=== PATIENT | male | born 1970 | race Caucasian/White ===

== ENCOUNTER 2018-04-27 15:50 | Inpatient (IN) | payer OTHER ==
[2018-04-27] MEDS ORDERED: HYDROmorphone 1 MG/ML Syringe ONE ×3 (16:17→17:57)
[2018-04-27] MEDS ORDERED: fentaNYL 100 MCG/2 ML SDV ONE (16:22)
[2018-04-27] MEDS ORDERED: Sodium Chloride 0.9% 10 ML Syringe FLUSH PRN (16:59)
[2018-04-27] MEDS ORDERED: Lactated Ringers 1,000 ML IV SCH (17:00)
--- NOTE | 2018-04-27 17:31 | CT ---
CT cervical spine Technique: Multiple axial sections were obtained from above C1 to the bottom of T2. Reconstructed sagittal and coronal images were reviewed. Comparison: No prior cervical spine imaging. Findings: Vertebral body heights are maintained. Mild disc space narrowing is noted at C2-3, C3-4, C4-5 and C5-6. Mild degenerative change is noted within the lower apophyseal joints. Vertebral bodies and posterior arches are intact with no fracture being seen. No bony central or neural foraminal stenosis is seen. Mild scoliosis is seen. No abnormal subluxation is seen. Slight degenerative spurring is noted within the uncovertebral joints at C3-4, C4-5 and C5-6. Impression: 1. Scoliosis and mild degenerative change. 2. Nothing acute is appreciated on CT study of the cervical spine. Diagnostic code #2
[2018-04-27] MEDS ORDERED: Iopamidol 612 MG/ML 100 ML Bottle IVPUSH ONE (17:32)
--- NOTE | 2018-04-27 17:35 | CT ---
Head CT Technique: Multiple axial sections through the brain were obtained. Intravenous contrast was not utilized. Comparison: No prior intracranial imaging is available. Findings: Ventricles along with basal cisterns and sulci over the convexities are within normal limits for the patient's age. No abnormal parenchymal densities are seen. No evidence of intracranial hemorrhage. No midline shift or mass effect is seen. Bone window settings were reviewed which shows moderate mucosal thickening within the ethmoid sinuses and mild mucosal thickening within the frontal sinuses and minimal mucosal thickening within left sphenoid sinus. Findings are felt compatible with pre-existing mild chronic sinusitis. No acute calvarial abnormality is seen. Impression: 1. Sinus findings as described above. These are most likely pre-existing and due to mild chronic sinusitis. 2. No acute intracranial abnormality is identified. Diagnostic code #2
--- NOTE | 2018-04-27 17:42 | CT ---
CT chest Technique: Multiple axial sections were obtained from above the lung apices inferiorly through the lung bases. Intravenous contrast was utilized. Comparison: No prior chest CT, previous chest x-ray performed on the same day (4:16 PM). Findings: Mediastinal structures appear within normal limits. No adenopathy is seen. No pericardial fluid is seen. Lungs are clear. No acute parenchymal densities are seen. No pleural effusions or pneumothorax is seen. Bone window settings were reviewed which shows no acute rib fracture. Vertebral body heights are maintained. Sternum appears intact on the reconstructed sagittal images. Impression: 1. Nothing acute is seen on CT study of the chest. Diagnostic code #1 CT abdomen and pelvis Technique: Multiple axial sections were obtained from above the dome of the diaphragm inferiorly through the pubic symphysis. Intravenous contrast was utilized. No oral contrast has been given. Comparison: No prior abdominal imaging. Findings: Fatty infiltration is noted within the liver. Spleen appears within normal limits. Adrenal glands are normal. Pancreas appears within normal limits. Gallbladder contains no calcified gallstones. Kidneys show symmetric contrast enhancement and appear within normal limits. Aorta shows no aneurysm. No retroperitoneal adenopathy or mesenteric abnormalities are seen. No pelvic mass or adenopathy is identified. Appendix not visualized with certainty. No free fluid or inflammatory change is seen. Bone window settings were reviewed which shows slight degenerative change within the lower lumbar apophyseal joints. No vertebral body compression deformities are seen. Incidental small fat-containing umbilical hernia is seen. Impression: 1. Fatty infiltration within the liver and other incidental findings. Nothing acute is appreciated on CT study of the abdomen and pelvis. Diagnostic code #2
[2018-04-27] MEDS ORDERED: HYDROmorphone 1 MG/ML Syringe IVPUSH ONE (17:56)
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
[2018-04-27] MEDS ORDERED: LORazepam 2 MG/ML SDV IVPUSH ONE (18:35)
[2018-04-27] MEDS ORDERED: LORazepam 2 MG/ML SDV ONE (18:36)
[2018-04-27] MEDS ORDERED: Ondansetron 4 MG/2 ML SDV IV PRN (18:51)
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
[2018-04-27] MEDS ORDERED: HYDROmorphone 0.5 MG/0.5 ML Syringe IVPUSH PRN ×2 (18:54→21:55)
[2018-04-27] MEDS ORDERED: Sodium Chloride 0.9% 1,000 ML IV SCH (19:00)
[2018-04-27] MEDS ORDERED: Propofol 200 MG/20 ML SDV ONE (19:07)
[2018-04-27] MEDS ORDERED: Midazolam 1 MG/ML 2 ML SDV ONE (19:07)
[2018-04-27] MEDS ORDERED: fentaNYL 250 MCG/5 ML SDV ONE (19:08)
[2018-04-27] MEDS ORDERED: Ketamine 500 mg/10 ML MDV ONE (19:08)
[2018-04-27] MEDS ORDERED: Ondansetron 4 MG/2 ML SDV ONE (19:09)
[2018-04-27] MEDS ORDERED: Dexamethasone 4 MG/ML SDV ONE (19:09)
[2018-04-27] MEDS ORDERED: Lidocaine 1% 4 ML ONE (19:09)
[2018-04-27] MEDS ORDERED: Rocuronium 50 MG/5 ML Vial ONE ×2 (19:09→21:06)
[2018-04-27] MEDS ORDERED: Naloxone 0.4 MG/ML SDV IVPUSH PRN (19:30)
[2018-04-27] MEDS ORDERED: Bupivacaine 0.25% 30 ML SDV ONE (19:32)
--- NOTE | 2018-04-27 19:33 | PCM.PREANE ---
Preanesthetic Assessment - Procedure Proposed Procedure: ORIF right femur fracture - Anesthesia/Transfusion/Family Hx Anesthesia History: Unknown Type of Anesthesia Reaction: Unknown Family History of Anesthesia Reaction: Other (see below) (Spoke with patients brother (Akash) on the phone to explore if the patient had and family history of anesthetic complications. Akash verified that there were not any family history of anesthesia complications that he was aware of.) Transfusion History: Unknown Intubation History: Unknown Additional History: Pt stated he has a history of heroin use but cannot state when he used last. Has multiple old abscesses on his upper extremities. Difficult IV accessibility. Patient stated he was sure he ate something today but cannot tell us what or when. He states he does not take any medication or have any significant health history. We were able to find out the patient is on suboxone. I spoke to Dr Sanches and asked if the surgery needed to be done tonight just because we were unsure of NPO time. He said it was a very unstable fracture and the slightest movement could result in neurovascular compromise. We deemed the procedure an emergency and will proceed with a RSI general anesthetic. Pt will be difficult to manage post operative pain due to being on suboxone and Dr Sanches and DR Beck also aware of this too. - Review of Systems General: Other (Distressed from femur pain ) Pulmonary: No Symptoms Cardiovascular: No Symptoms Gastrointestinal: No Symptoms Neurological: Confusion - Physical Assessment NPO Status Date: 04/27/18 NPO Status Time: 12:00 (Pt stated "he was sure he ate something today" but has no idea when or what ) Pulse: 91 O2 Sat by Pulse Oximetry: 100 (2L O2) Respiratory Rate: 21 Blood Pressure: 131/79 Vital Signs: Last Vital Signs Temp 36.7 C 04/27/18 15:50 Pulse 118 H 04/27/18 15:50 Resp 21 H 04/27/18 15:50 BP 145/102 H 04/27/18 15:50 Pulse Ox 99 04/27/18 15:50 Weight: 108.862 kg ASA Class: 2E Mental Status: Other (Altered mental status) Airway Class: Mallampati = 2 Dentition: Reports: Missing Tooth/Teeth (multiple missing theeth) Thyro-Mental Finger Breadths: 3 Mouth Opening Finger Breadths: 3 ROM/Head Extension: Full Lungs: Clear to Auscultation, Normal Respiratory Effort Cardiovascular: Regular Rate, Regular Rhythm - Lab Values: Laboratory Last Values WBC 19.72 K/mm3 (4.23-9.07) H 04/27/18 17:26 RBC 4.62 M/mm3 (4.63-6.08) L 04/27/18 17:26 Hgb 13.6 gm/L (13.7-17.5) L 04/27/18 17:26 Hct 38.4 % (40.1-51.0) L 04/27/18 17:26 MCV 83.1 fl (79.0-92.2) 04/27/18 17: MCH 29.4 pg (25.7-32.2) 04/27/18 17: MCHC 35.4 g/dl (32.2-35.5) 04/27/18 17: RDW Std Deviation 37.1 fL (35.1-43.9) 04/27/18 17: Plt Count 277 K/mm3 (163-337) 04/27/18 17: MPV 9.2 fl (9.4-12.3) L 04/27/18 17:26 Neut % (Auto) 82.8 % (34.0-67.9) H 04/27/18 17: Lymph % (Auto) 8.4 % (21.8-53.1) L 04/27/18 17:26 Evangeline % (Auto) 7.9 % (5.3-12.2) 04/27/18 17:26 Eos % (Auto) 0.3 (0.8-7.0) L 04/27/18 17:26 Baso % (Auto) 0.2 % (0.1-1.2) 04/27/18 17:26 Neut # (Auto) 16.33 K/mm3 (1.78-5.38) H 04/27/18 17:26 Lymph # (Auto) 1.66 K/mm3 (1.32-3.57) 04/27/18 17:26 Evangeline # (Auto) 1.56 K/mm3 (0.30-0.82) H 04/27/18 17:26 Eos # (Auto) 0.06 K/mm3 (0.04-0.54) 04/27/18 17:26 Baso # (Auto) 0.04 K/mm3 (0.01-0.08) 04/27/18 17:26 Manual Slide Review Abnormal smear 04/27/18 17:26 PT 10.8 SECONDS (9.5-12.1) 04/27/18 17:26 INR 0.99 04/27/18 17:26 APTT 24 SECONDS (24-31) 04/27/18 17:26 Sodium 138 mEq/L (136-145) 04/27/18 17:26 Potassium 3.8 mEq/L (3.5-5.1) 04/27/18 17:26 Chloride 104 mEq/L (98-107) 04/27/18 17:26 Carbon Dioxide 22 mEq/L (21-32) 04/27/18 17:26 Anion Gap 15.8 (5-15) H 04/27/18 17:26 BUN 19 mg/dL (7-18) H 04/27/18 17:26 Creatinine 1.2 mg/dL (0.7-1.3) 04/27/18 17:26 Est Cr Clr Drug Dosing TNP 04/27/18 17:26 Estimated GFR (MDRD) > 60 mL/min (>60) 04/27/18 17:26 BUN/Creatinine Ratio 15.8 (14-18) 04/27/18 17:26 Glucose 110 mg/dL (74-106) H 04/27/18 17:26 Calcium 8.7 mg/dL (8.5-10.1) 04/27/18 17:26 Total Bilirubin 0.4 mg/dL (0.2-1.0) 04/27/18 17:26 AST 61 U/L (15-37) H 04/27/18 17:26 ALT 111 U/L (16-63) H 04/27/18 17:26 Alkaline Phosphatase 63 U/L (46-116) 04/27/18 17:26 Total Protein 7.7 g/dl (6.4-8.2) 04/27/18 17:26 Albumin 3.5 g/dl (3.4-5.0) 04/27/18 17:26 Globulin 4.2 gm/dL 04/27/18 17:26 Albumin/Globulin Ratio 0.8 (1-2) L 04/27/18 17:26 Lipase 113 U/L (73-393) 04/27/18 17:26 Ethyl Alcohol 0.00 gm% (0.00) 04/27/18 17:26 Blood Type O NEGATIVE 04/27/18 17:26 Gel Antibody Screen Negative 04/27/18 17:26 Drug screen pending - Allergies Allergies/Adverse Reactions: Allergies Allergy/AdvReac Type Severity Reaction Status Date / Time Penicillins Allergy Other Verified 04/27/18 16:32 - Blood Blood Available: No Product(s) Available: None - Anesthesia Plan Pre-Op Medication Ordered: None - Acknowledgements Anesthesia Type Planned: General Anesthesia, Regional Block (femoral nerve block for post op pain control) Pt an Appropriate Candidate for the Planned Anesthesia: Yes Alternatives and Risks of Anesthesia Discussed w Pt/Guardian: Yes Pt/Guardian Understands and Agrees with Anesthesia Plan: Yes PreAnesthesia Questionnaire Other Musculoskeletal History: R collar bone - Past Surgical History Other Surgical History Comment: Multiple skin abscess surgeries (from history of drug use). - SUBSTANCE USE Smoking Status *Q: Current Every Day Smoker Recreational Drug Use History: Yes Recreational Drug Type: Reports: Heroin (Pt is unable to verify when the last time he used) - HOME MEDS Home Medications: Home Meds Buprenorphine HCl/Naloxone HCl [Suboxone 4 mg-1 mg Sl Film] 0 mg PO BID [History] - CURRENT (IN HOUSE) MEDS Current Meds: Current Medications Hydromorphone HCl (Dilaudid) 0.2 - 0.8 mg IVPUSH Q1H PRN PRN Reason: Pain Sodium Chloride (Normal Saline) 1,000 mls @ 125 mls/hr IV ASDIRECTED ANN MARIE Ondansetron HCl (Zofran) 4 mg IV Q4H PRN PRN Reason: Nausea/Vomiting Pantoprazole Sodium (Protonix Iv) 40 mg IV DAILY ANN MARIE Sodium Chloride (Saline Flush) 10 ml FLUSH ASDIRECTED PRN PRN Reason: Keep Vein Open Discontinued Medications Dexamethasone (Dexamethasone) Confirm Administered Dose 8 mg .ROUTE .STK-MED ONE Stop: 04/27/18 19:10 Fentanyl (Sublimaze) Confirm Administered Dose 100 mcg .ROUTE .STK-MED ONE Stop: 04/27/18 16:23 Fentanyl (Sublimaze) Confirm Administered Dose 250 mcg .ROUTE .STK-MED ONE Stop: 04/27/18 19:09 Hydromorphone HCl (Dilaudid) Confirm Administered Dose 1 mg .ROUTE .STK-MED ONE Stop: 04/27/18 16:18 Hydromorphone HCl (Dilaudid) Confirm Administered Dose 1 mg .ROUTE .STK-MED ONE Stop: 04/27/18 16:43 Hydromorphone HCl (Dilaudid) 1 mg IVPUSH ONETIME ONE Stop: 04/27/18 17:57 Hydromorphone HCl (Dilaudid) Confirm Administered Dose 1 mg .ROUTE .STK-MED ONE Stop: 04/27/18 17:58 Lactated Ringer's (Ringers, Lactated) 1,000 mls @ 125 mls/hr IV ASDIRECTED ANN MARIE Lidocaine HCl (Xylocaine-Mpf 1%) Confirm Administered Dose 4 mls @ as directed .ROUTE .STK-MED ONE Stop: 04/27/18 19:10 Iopamidol (Isovue-300 (61%)) 100 ml IVPUSH ONETIME ONE Stop: 04/27/18 17:33 Last Admin: 04/27/18 17:33 Dose: 100 ml Ketamine HCl (Ketalar) Confirm Administered Dose 500 mg .ROUTE .STK-MED ONE Stop: 04/27/18 19:09 Lorazepam (Ativan) 0.5 mg IVPUSH ONETIME ONE Stop: 04/27/18 18:36 Lorazepam (Ativan) Confirm Administered Dose 2 mg .ROUTE .STK-MED ONE Stop: 04/27/18 18:37 Midazolam HCl (Versed 1 Mg/Ml) Confirm Administered Dose 2 mg .ROUTE .STK-MED ONE Stop: 04/27/18 19:08 Ondansetron HCl (Zofran) Confirm Administered Dose 4 mg .ROUTE .STK-MED ONE Stop: 04/27/18 19:10 Propofol (Diprivan 20 Ml) Confirm Administered Dose 200 mg .ROUTE .STK-MED ONE Stop: 04/27/18 19:08 Rocuronium [place] (Zemuron) Confirm Administered Dose 50 mg .ROUTE .STK-MED ONE Stop: 04/27/18 19:10
[2018-04-27] MEDS ORDERED: Succinylcholine/Normal Saline 100 MG/5 ML Syringe ONE (20:03)
[2018-04-27] MEDS ORDERED: ceFAZolin 1 GM Vial ONE (20:19)
[2018-04-27] MEDS ORDERED: Phenylephrine/Normal Saline 100 MCG/ML 10 ML Syringe ONE (20:25)
[2018-04-27] MEDS ORDERED: Lactated Ringers 1,000 ML ONE ×3 (20:48→22:05)
[2018-04-27] MEDS ORDERED: fentaNYL 100 MCG/2 ML SDV IVPUSH PRN (21:55)
[2018-04-27] MEDS ORDERED: Meperidine PF 50 MG/ML Syringe IVPUSH ONE (21:55)
[2018-04-27] MEDS ORDERED: diphenhydrAMINE 50 MG/ML SDV IVPUSH PRN (21:55)
[2018-04-27] MEDS ORDERED: Ondansetron 4 MG/2 ML SDV IVPUSH PRN (21:55)
[2018-04-27] MEDS ORDERED: Neostigmine Methylsulfate 1 MG/ML 5 ML Syringe ONE (22:32)
[2018-04-27] MEDS ORDERED: Ketorolac 30 MG/ML SDV ONE (22:37)
--- NOTE | 2018-04-27 23:11 | PCM.POSTAN ---
POST ANESTHESIA ASSESSMENT - MENTAL STATUS Mental Status: Somnolent - VITAL SIGNS Pulse Rate: 87 SaO2: 100 Resp Rate: 18 Blood Pressure: 126/86 Temperature: 97.0 C - RESPIRATORY Respiratory Status: Respiratory Rate WNL, Airway Patent, O2 Saturation Stable, Supplemental Oxygen - CARDIOVASCULAR CV Status: Pulse Rate WNL, Blood Pressure Stable - GASTROINTESTINAL GI Status: No Symptoms - PAIN Pain Score: 0 - POST OP HYDRATION Hydration Status: Adequate & Stable
[2018-04-27] MEDS ORDERED: Ropivacaine 0.5% 5 MG/ML 30 ML SDV ONE (23:17)
[2018-04-27] MEDS ORDERED: EPINEPHrine 1 MG/ML SDV ONE (23:17)
[2018-04-27] MEDS ORDERED: Lidocaine 1% 2 ML ONE (23:17)
--- NOTE | 2018-04-27 23:42 | PCM.SN ---
- Free Text/Narrative Note: Patient underwent ORIF of the RIGHT femur fracture. He arrives to the PACU. EBL was 200 cc. Vitals wnl. RIGHT lower extremity wrapped. RIGHT DP/PT not palpable, but triphasic dopplerable. Discussed with Ortho team regarding plan of care. - Neurovascular checks Q1H to evaluate for compartment syndrome. - Multimodal pain control. Femoral nerve block to be performed in the PACU. Will have morphine OIL INSPECTOR, scheduled Tylenol, scheduled Toradol. - May start diet. - Additional peripheral IV will be placed by JACQUI Cortés. - Start heparin SQ for VTE prophylaxis. - Post-op care in the ICU. Gelacio Danielle" Vinh Son., F.A.C.S. General Surgery Pager: [phone]
--- NOTE | 2018-04-28 00:07 | PCM.SN ---
- Free Text/Narrative Note: Right femoral nerve block for post-procedure pain control Time Out: 2324 Start: 2324 End: 2334 Chart reviewed. Consent signed. Questions answered. Appropriate monitors applied. Time out performed. Right femoral artery evaluated with ultrasound. The femoral nerve was lateral to the artery. The skin was prepped lateral to the ultrasound probe with chlorahexadine. The 21ga 4 insulated block needle was inserted under direct ultrasound guidance into the adductor canal. 20mL of 0.5% ropivacaine with 1:200,000 epinephrine was injected cirmcumferentially about the nerve with intermittent negative aspiration every 5mL. Patient tolerated the procedure well. See pictures on progress note and vital signs on nurses notes. Block completed postoperatively. Alvaro Cortés HOME CARE NURSE
[2018-04-28] MEDS ORDERED: Sodium Chloride 0.9% 1,000 ML IV SCH (00:30)
[2018-04-28] MEDS: Morphine PF 30 MG/30 ML PCA Vial IV PRN ×2 (00:32→20:45)
[2018-04-28] MEDS: Heparin Sodium 5,000 Units/ML Vial SUBCUT SCH ×4 (00:37→22:31)
[2018-04-28] MEDS: Acetaminophen 325 MG Tab PO SCH ×5 (00:55→22:30)
[2018-04-28] MEDS: Pantoprazole 40 MG Vial IV SCH ×2 (00:56→10:20)
[2018-04-28] MEDS ORDERED: ceFAZolin/Dextrose,Iso-Osmotic 2 GM/50 ML Duplex Bag IV ONE (00:59)
[2018-04-28] MEDS: Ketorolac 30 MG/ML SDV IVPUSH SCH ×4 (04:28→22:31)
[2018-04-28] MEDS: ceFAZolin 2 GM in Premix Bag 1 BAG IV SCH ×3 (04:29→20:12)
--- NOTE | 2018-04-28 08:37 | PCM.OPNOTE ---
- General Post-Op/Procedure Note Date of Surgery/Procedure: 04/27/18 Operative Procedure(s): open reduction with intramedullary nailing of right segmental femur fracture with intraarticular extension Pre Op Diagnosis: segmental right femur fracture with intraarticular extension Post-Op Diagnosis: Same Anesthesia Technique: General ET Tube, Regional Block Primary Surgeon: Marlon Sanches Anesthesia Provider: Alvaro Cortés Room Cleaner: Brianna Hampton EBL in mLs: 200 Complications: None Condition: Good Free Text/Narrative:: Intake & Output 04/27/18 04/28/18 04/28/18 22:59 06:59 14:59 Intake Total 802 Balance 802
--- NOTE | 2018-04-28 08:56 | CR ---
Right tibia and fibula: Single lateral view of the right tibia and fibula was obtained. Distal femur fracture is again seen. Lateral view of the right tibia and fibula appears intact. Impression: 1. Distal femur fracture. Lateral right tibia and fibula study is otherwise unremarkable. Diagnostic code #3
--- NOTE | 2018-04-28 08:56 | CR ---
Pelvis: AP view of the pelvis was obtained. Comparison: No previous pelvis exam. No fracture or other abnormality is seen. Overlying artifact is seen which obscures portions of the right hemipelvis. Impression: 1. Nothing acute is appreciated on AP pelvis study. Diagnostic code #2
--- NOTE | 2018-04-28 08:56 | CR ---
Chest: Portable view of the chest was obtained. Comparison: No prior chest x-ray. Old fracture deformity which appears healed seen within the right clavicle. No acute bony abnormality is appreciated on this study. Heart size and mediastinum are normal. Lungs are clear. Impression: 1. Incidental finding. Nothing acute is seen on portable chest x-ray. Diagnostic code #2
--- NOTE | 2018-04-28 08:56 | CR ---
Right femur: AP and lateral views of the right femur were obtained. Displaced fracture is identified within the mid femur with foreshortening and overlapping of fragments. Distal fracture is seen through the diaphysis with extension into the knee. Distal fracture shows mild displacement as well as mild apex posterior angulation. Diffuse soft tissue swelling is seen. Impression: 1. Complicated right femur fracture as noted above. Diagnostic code #5
--- NOTE | 2018-04-28 09:54 | OR ---
DATE OF OPERATION: 04/27/2018 SURGEON: Marlon Sanches MD PROCEDURE: Open reduction internal fixation with intramedullary nailing of right segmental femur fracture with intra-articular extension. PREOPERATIVE DIAGNOSIS: Segmental right femur fracture with intra-articular extension. POSTOPERATIVE DIAGNOSIS: Segmental right femur fracture with intra-articular extension. ANESTHESIA TECHNIQUE: General endotracheal intubation with regional femoral block. ANESTHESIA PROVIDER: Alvaro Cortés. JEWEL BEARING DRILLER: Brianna Hampton PA-C. ESTIMATED BLOOD LOSS: 200 mL. COMPLICATIONS: None. CONDITION: Stable. DESCRIPTION OF PROCEDURE: The patient was identified in the preop holding area. Proper site was marked and identified by the surgeon. The patient was taken back to the operating theater, where after adequate anesthesia, the patient's right lower extremity was sterilely prepped and draped in the usual sterile fashion. OR time-out was performed. The patient received 2 g IV Ancef. At this time, on radiolucent flat top table, a medial parapatellar incision was made and a medial parapatellar arthrotomy was created. At this time, the intra-articular extension was noted to be through the medial condyle, but in the articular portion it was towards the very far medial side of the articular surface. It did not involve the intercondylar notch. At this time, a [id number] reduction clamp was used to reduce the articular portion. At this time, a guide pin was then placed just anterior to Blumensaat's line on the lateral radiograph and center-center in the distal femur. The opening reamer was then used for Masood retrograde femoral nail. A ball-tipped guidewire was placed up to the 1st and 2nd portion of the segmental fracture and it was placed across this part of the fracture. The more proximal portion of the fracture near the diaphysis was significantly shortened as well as laterally displaced. It took significant force for reduction along with using a picador to push it from lateral to medial. This did take significant effort and we were able to get the ball- tipped guidewire down and up past the level of the lesser trochanter. At this time, I started with an 8.5 reamer, I was able to ream up to a 12.5 for a size 11 nail. It was measured to be 400 mm, so a 400 x 11 mm Masood retrograde femoral nail was then opened on the back table. This was then impacted into place across the fracture site and was found to be in adequate position. At this time, there was noted to be a small amount of comminution noted of the articular step-off near the very far medial articular side. K-wires were then placed for a 4-0 cannulated and a 3-0 cannulated screw to help the compression across this, and there was no articular step-off noted whatsoever. After these were then completed, attention was turned to locking screws. Two lateral to medial locking screws were placed across the distal femur. The articular extension fragment showed no signs of instability with good fixation. At this time, it was decided we would not do any further 4-0 cannulated screws across the fracture site that would add intra-articular extension. Another static locking screw was placed proximally. It was found to be in good position on both AP and lateral views. The rotation was checked and seemed to be consistent with the contralateral extremity with the patella facing straight anteriorly. At this time, adequate saline was irrigated through the wound. A #2 barbed suture was used for closure of the medial parapatellar arthrotomy, 2-0 Vicryl was used subcutaneously. Palo were used for all skin incisions. The patient had a sterile soft dressing applied and was sent to PACU in stable condition. The patient did have 2+ distal pulses after the procedure, even though it was noted the patient did have very thready pulses and sometimes no pulses and around 3-second capillary refill before the procedure began. Just note that this was a very difficult procedure secondary to the segmental high-energy nature of it with the intra-articular extension compared to most normal femur fractures. OPERATION PERFORMED: ANESTHESIA: MMODAL /[id number]
[2018-04-28] MEDS: Docusate Sodium 100 MG Cap PO SCH ×2 (10:20→20:16)
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
--- NOTE | 2018-04-28 13:17 | CR ---
Left ankle: 4 views of the left ankle were obtained. Comparison: No previous study. Lucent line is identified within the talar dome and within the body of the talus suspicious for fracture. Soft tissue swelling is noted. No additional abnormality is seen. Impression: 1. Findings suspicious for talar fracture. CT could be considered to further evaluate. 2. Soft tissue swelling. Diagnostic code #3
--- NOTE | 2018-04-28 16:17 | PCM48HPAN ---
Post Anesthesia Note - EVALUATION WITHIN 48HRS OF ANESTHETIC Vital Signs in Normal Range: Yes Patient Participated in Evaluation: Yes Respiratory Function Stable: Yes Airway Patent: Yes Cardiovascular Function Stable: Yes Hydration Status Stable: Yes Pain Control Satisfactory: Yes Nausea and Vomiting Control Satisfactory: Yes Mental Status Recovered: Yes - COMMENTS/OBSERVATIONS Free Text/Narrative:: Patient alert and oriented. States the pain is controlled. Able to move the right leg and has his sensation back. He feels the block wearing off within the las 1-1.5 hours. Until recent, his pain has been very well controlled per patient. No symptoms of any post anesthesia complications.
[2018-04-28] MEDS: Nicotine 21 MG/24 Hr Patch TRDERM SCH (20:49)
[2018-04-29] MEDS: Cyclobenzaprine 10 MG Tab PO PRN ×2 (02:49→11:46)
[2018-04-29] MEDS: Morphine PF 30 MG/30 ML PCA Vial IV PRN (02:50)
[2018-04-29] MEDS: Acetaminophen 325 MG Tab PO SCH ×4 (04:57→22:16)
[2018-04-29] MEDS: Ketorolac 30 MG/ML SDV IVPUSH SCH ×3 (04:58→16:30)
--- NOTE | 2018-04-29 08:24 | CR ---
Right femur: 19 fluoroscopic spot views utilizing C-arm device were obtained. Study shows procedure of intramedullary rodding and reduction of previous femur fractures. Fluoroscopy time given as to 86.8 seconds. Impression: 1. Procedural study as described above. Diagnostic code #2
--- NOTE | 2018-04-29 08:24 | CR ---
Right femur: AP and lateral views of the right femur were obtained. Comparison: Prior CT femur study and plain film study performed earlier on the same day (4:59 PM and 4:31 PM). Intramedullary mi is seen affixing previous femur fractures. Alignment of the major fragments appears near anatomic. Skin andrey are present. Soft tissue swelling is noted. Impression: 1. Reduction of previous femur fractures with intramedullary rodding. Diagnostic code #2
[2018-04-29] MEDS: Heparin Sodium 5,000 Units/ML Vial SUBCUT SCH ×3 (08:44→22:06)
[2018-04-29] MEDS: Pantoprazole 40 MG Vial IV SCH (08:45)
[2018-04-29] MEDS: Docusate Sodium 100 MG Cap PO SCH ×2 (08:46→22:07)
[2018-04-29] MEDS: Nicotine 21 MG/24 Hr Patch TRDERM SCH (08:47)
[2018-04-29] MEDS ORDERED: HYDROmorphone 0.5 MG/0.5 ML Syringe IVPUSH PRN (10:26)
[2018-04-29] MEDS: oxyCODONE 5 MG Tab PO PRN ×3 (10:36→22:17)
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
--- NOTE | 2018-04-29 22:18 | PCM.SN ---
- Free Text/Narrative Note: Early in the evening, the patient's HR increased to 130's. Repeat CBC showed a drop in Hb (13.6 -> 10.6 -> 7.8). Patient was re-examined at bedside. HR has now decreased to low 100's. BP has remained normal (SBP 120's-140's). Examination of the patient's surgical site showed intact dressing without any external bleeding. Sensation remains intact to light touch. No tenderness to the below-knee region. No obvious evidence of active bleeding. Will repeat H/H again in 6 hours. Gelacio Son M.D., F.A.C.S. General Surgery Pager: [phone]
[2018-04-30] MEDS: oxyCODONE 5 MG Tab PO PRN ×4 (02:14→20:54)
[2018-04-30] MEDS: Cyclobenzaprine 10 MG Tab PO PRN ×2 (02:14→18:30)
[2018-04-30] MEDS: Acetaminophen 325 MG Tab PO SCH ×5 (04:19→22:07)
[2018-04-30] MEDS: Heparin Sodium 5,000 Units/ML Vial SUBCUT SCH ×2 (06:46→16:09)
--- NOTE | 2018-04-30 07:50 | CT ---
CT left ankle Technique: Multiple axial sections through the left ankle were obtained. Reconstructed coronal and sagittal images were obtained. Comparison: Prior left ankle radiographic study performed earlier on the same day at 12:53 PM. Complicated fracture noted within the talus. Fracture involves the talar dome in 2 places. Fracture then extends into the subtalar joint in 2 locations. Greatest displacement measures about 4 mm. Soft tissue swelling is noted. No additional ankle fracture is seen. Impression: 1. Complicated talar fracture with fracture involving both talar dome and subtalar joint with greatest displacement 4 mm. 2. Soft tissue swelling. Diagnostic code #3 MTDD
--- NOTE | 2018-04-30 08:06 | PCM48HPAN ---
Post Anesthesia Note - EVALUATION WITHIN 48HRS OF ANESTHETIC Vital Signs in Normal Range: Yes Patient Participated in Evaluation: Yes Respiratory Function Stable: Yes Airway Patent: Yes Cardiovascular Function Stable: Yes Hydration Status Stable: Yes Pain Control Satisfactory: Yes Nausea and Vomiting Control Satisfactory: Yes Mental Status Recovered: Yes Pulse Rate: 108 Resp Rate: 16 Temperature: 37.6 C Blood Pressure: 128/76 - COMMENTS/OBSERVATIONS Free Text/Narrative:: patient states that he is feeling pretty good overall. pain is tolerable with meds and no compaints at this time.
--- NOTE | 2018-04-30 08:09 | CT ---
CT right knee Technique: Multiple axial sections through the right knee were obtained. Reconstructed coronal and sagittal images were obtained. Findings: Mildly comminuted fracture is noted within the femur in 2 places. Proximal fracture is displaced up to 4.5 with more distal fracture is displaced by up to 2.0 cm. Distal fracture extends into the intercondylar notch and into the anterior femoral condyle with articular extension into the knee. Proximal tibia and fibula appear intact. The more distal fracture within the femur shows apex posterior angulation. Impression: 1. Complex mid and distal femur fracture as noted above. Diagnostic code #5 MTDD
[2018-04-30] MEDS: Docusate Sodium 100 MG Cap PO SCH ×2 (09:04→20:54)
[2018-04-30] MEDS: Pantoprazole 40 MG Vial IV SCH (09:06)
[2018-04-30] MEDS: Nicotine 21 MG/24 Hr Patch TRDERM SCH (09:12)
[2018-04-30] MEDS ORDERED: Biotin/Folic Acid/Vitamin C/Vitamin B Complex Tab PO SCH (10:00)
[2018-04-30] MEDS: Ferrous Sulfate 140 MG Tab PO SCH (10:08)
[2018-04-30] MEDS: Multivitamins,Therapeutic Tab PO SCH (10:08)
[2018-04-30] MEDS: Ascorbic Acid 500 MG Tab PO SCH (10:08)
[2018-04-30] MEDS ORDERED: HYDROmorphone 1 MG/ML Syringe IVPUSH PRN (11:03)
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
[2018-05-01] MEDS: oxyCODONE 5 MG Tab PO PRN ×4 (02:15→18:23)
[2018-05-01] MEDS: Acetaminophen 325 MG Tab PO SCH ×5 (02:16→21:37)
[2018-05-01] MEDS: Heparin Sodium 5,000 Units/ML Vial SUBCUT SCH ×5 (02:17→22:31)
[2018-05-01] MEDS: Cyclobenzaprine 10 MG Tab PO PRN ×2 (08:05→15:13)
[2018-05-01] MEDS: Multivitamins,Therapeutic Tab PO SCH (08:05)
[2018-05-01] MEDS: Docusate Sodium 100 MG Cap PO SCH ×2 (08:05→21:37)
[2018-05-01] MEDS: Ascorbic Acid 500 MG Tab PO SCH (08:05)
[2018-05-01] MEDS: Ferrous Sulfate 140 MG Tab PO SCH (08:05)
[2018-05-01] MEDS: Nicotine 21 MG/24 Hr Patch TRDERM SCH (08:07)
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
[2018-05-02] MEDS: oxyCODONE 5 MG Tab PO PRN ×5 (00:18→20:21)
[2018-05-02] MEDS: Acetaminophen 325 MG Tab PO SCH ×3 (04:55→18:40)
[2018-05-02] MEDS: Cyclobenzaprine 10 MG Tab PO PRN ×2 (04:55→18:41)
[2018-05-02] MEDS: Heparin Sodium 5,000 Units/ML Vial SUBCUT SCH ×2 (06:18→14:50)
[2018-05-02] MEDS ORDERED: Magnesium Hydroxide 400 MG/5 ML Susp 30 ML Cup PO ONE (09:30)
[2018-05-02] MEDS: Ferrous Sulfate 140 MG Tab PO SCH (09:38)
[2018-05-02] MEDS: Multivitamins,Therapeutic Tab PO SCH (09:38)
[2018-05-02] MEDS: Ascorbic Acid 500 MG Tab PO SCH (09:38)
[2018-05-02] MEDS: Docusate Sodium 100 MG Cap PO SCH ×2 (09:39→20:21)
[2018-05-02] MEDS: Nicotine 21 MG/24 Hr Patch TRDERM SCH (09:39)
--- NOTE | 2018-05-02 16:34 | PCM.SURGPN ---
- General Info Date of Service: 05/02/18 Functional Status: Reports: Pain Controlled - Review of Systems Gastrointestinal: Reports: No Symptoms - Patient Data Vitals - Most Recent: Last Vital Signs Temp 98.1 F 05/02/18 11:28 Pulse 103 H 05/02/18 11:28 Resp 14 05/02/18 10:54 BP 141/83 H 05/02/18 10:54 Pulse Ox 97 05/02/18 11:28 Weight - Most Recent: 119.612 kg I&O - Last 24 Hours: Intake & Output 05/02/18 05/02/18 05/02/18 07:59 15:59 23:59 Intake Total 700 120 Output Total 800 Balance -100 120 Lab Results Last 24 Hrs: Laboratory Results - last 24 hr 05/02/18 Range/Units 14:30 Sodium 137 (136-145) mEq/L Potassium 4.2 (3.5-5.1) mEq/L Chloride 102 (98-107) mEq/L Carbon Dioxide 27 (21-32) mEq/L Anion Gap 12.2 (5-15) BUN 16 (7-18) mg/dL Creatinine 1.0 (0.7-1.3) mg/dL Est Cr Clr Drug Dosing 108.50 mL/min Estimated GFR (MDRD) > 60 (>60) mL/min BUN/Creatinine Ratio 16.0 (14-18) Glucose 132 H (74-106) mg/dL Calcium 8.9 (8.5-10.1) mg/dL Total Bilirubin 1.0 (0.2-1.0) mg/dL AST 61 H (15-37) U/L ALT 62 (16-63) U/L Alkaline Phosphatase 59 (46-116) U/L Total Protein 7.4 (6.4-8.2) g/dl Albumin 2.6 L (3.4-5.0) g/dl Globulin 4.8 gm/dL Albumin/Globulin Ratio 0.5 L (1-2) Med Orders - Current: Current Medications Acetaminophen (Tylenol) 975 mg PO Q6H [facility] Last Admin: 05/02/18 09:38 Dose: 975 mg Ascorbic Acid (Vitamin C) 500 mg PO DAILY [facility] Last Admin: 05/02/18 09:38 Dose: 500 mg Cyclobenzaprine HCl (Flexeril) 10 mg PO TID PRN PRN Reason: Spasms Last Admin: 05/02/18 04:55 Dose: 10 mg Docusate Sodium (Colace) 100 mg PO BID [facility] Last Admin: 05/02/18 09:39 Dose: 100 mg Ferrous Sulfate (Slow Fe) 140 mg PO DAILY [facility] Last Admin: 05/02/18 09:38 Dose: 140 mg Heparin Sodium (Porcine) (Heparin Sodium) 5,000 units SUBCUT Q8H [facility] Last Admin: 05/02/18 14:50 Dose: 5,000 units Hydromorphone HCl (Dilaudid) 0.2 - 0.6 mg IVPUSH Q1H PRN PRN Reason: Pain (severe 7-10) Last Admin: 04/30/18 18:27 Dose: 0.5 mg Miscellaneous Information (Remove Patch) 1 ea TRDERM DAILY [facility] Last Admin: 05/02/18 09:40 Dose: 1 ea Multivitamins (Thera) 1 each PO DAILY [facility] Last Admin: 05/02/18 09:38 Dose: 1 each Naloxone HCl (Narcan) 0.4 mg IVPUSH Q2M PRN PRN Reason: Respiratory Distress Nicotine (Habitrol) 21 mg TRDERM DAILY [facility] Last Admin: 05/02/18 09:39 Dose: 21 mg Ondansetron HCl (Zofran) 4 mg IV Q4H PRN PRN Reason: Nausea/Vomiting Oxycodone HCl (Oxycodone) 5 - 10 mg PO Q4H PRN PRN Reason: Pain (moderate 4-6) Last Admin: 05/02/18 14:48 Dose: 10 mg Sodium Chloride (Saline Flush) 10 ml FLUSH ASDIRECTED PRN PRN Reason: Keep Vein Open Discontinued Medications Bupivacaine HCl (Marcaine 0.25%) Confirm Administered Dose 30 ml .ROUTE .STK- MED ONE Stop: 04/27/18 19:33 Last Admin: 04/27/18 22:40 Dose: 30 ml Cefazolin Sodium (Ancef) Confirm Administered Dose 2 gm .ROUTE .STK-MED ONE Stop: 04/27/18 20:20 Cefazolin Sodium/Dextrose (Ancef) Confirm Administered Dose 2 gm IV .STK-MED ONE Stop: 04/28/18 01:00 Last Admin: 04/28/18 01:28 Dose: Not Given Dexamethasone (Dexamethasone) Confirm Administered Dose 8 mg .ROUTE .[facility] ONE Stop: 04/27/18 19:10 Diphenhydramine HCl (Benadryl) 25 mg IVPUSH Q6H PRN PRN Reason: Pruritis Epinephrine HCl (Adrenalin) Confirm Administered Dose 1 mg .ROUTE .[facility] ONE Stop: 04/27/18 23:18 Fentanyl (Sublimaze) Confirm Administered Dose 100 mcg .ROUTE .[facility] ONE Stop: 04/27/18 16:23 Last Admin: 04/28/18 01:42 Dose: Not Given Fentanyl (Sublimaze) Confirm Administered Dose 250 mcg .ROUTE .[facility] ONE Stop: 04/27/18 19:09 Fentanyl (Sublimaze) 50 mcg IVPUSH Q5M PRN PRN Reason: Pain Glycopyrrolate () Confirm Administered Dose 1 mg .ROUTE .[facility] ONE Stop: 04/27/18 22:33 Hydromorphone HCl (Dilaudid) Confirm Administered Dose 1 mg .ROUTE .[facility] ONE Stop: 04/27/18 16:18 Last Admin: 04/28/18 01:42 Dose: Not Given Hydromorphone HCl (Dilaudid) Confirm Administered Dose 1 mg .ROUTE .[facility] ONE Stop: 04/27/18 16:43 Last Admin: 04/28/18 01:42 Dose: Not Given Hydromorphone HCl (Dilaudid) 1 mg IVPUSH ONETIME ONE Stop: 04/27/18 17:57 Last Admin: 04/28/18 01:42 Dose: Not Given Hydromorphone HCl (Dilaudid) Confirm Administered Dose 1 mg .[facility]TE [facility] ONE Stop: 04/27/18 17:58 Last Admin: 04/28/18 01:42 Dose: Not Given Hydromorphone HCl (Dilaudid) 0.2 - 0.8 mg IVPUSH Q1H PRN PRN Reason: Pain Hydromorphone HCl (Dilaudid) 0.5 mg IVPUSH Q15M PRN PRN Reason: Pain (severe 7-10) Hydromorphone HCl (Dilaudid) 0.2 - 0.6 mg IVPUSH Q1H PRN PRN Reason: Pain (severe 7-10) Lactated Ringer's (Ringers, Lactated) 1,000 mls @ 125 mls/hr IV ASDIRECTED [facility] Sodium Chloride (Normal Saline) 1,000 mls @ 125 mls/hr IV ASDIRECTED [facility] Lidocaine HCl (Xylocaine-Mpf 1%) Confirm Administered Dose 4 mls @ as directed .ROUTE .STK-MED ONE Stop: 04/27/18 19:10 Lactated Ringer's (Ringers, Lactated) Confirm Administered Dose 1,000 mls @ as directed .ROUTE .STK-MED ONE Stop: 04/27/18 20:49 Lactated Ringer's (Ringers, Lactated) Confirm Administered Dose 1,000 mls @ as directed .ROUTE .STK-MED ONE Stop: 04/27/18 20:49 Lactated Ringer's (Ringers, Lactated) Confirm Administered Dose 1,000 mls @ as directed .ROUTE .ST-MED ONE Stop: 04/27/18 22:06 Lidocaine HCl (Xylocaine-Mpf 1%) Confirm Administered Dose 2 mls @ as directed .ROUTE .ST-MED ONE Stop: 04/27/18 23:18 Sodium Chloride (Normal Saline) 1,000 mls @ 100 mls/hr IV ASDIRECTED [facility] Last Admin: 04/28/18 01:37 Dose: 100 mls/hr Acetaminophen (Ofirmev) 100 mls @ 400 mls/hr IV NOW ONE Stop: 04/28/18 00:35 Last Admin: 04/28/18 00:37 Dose: 400 mls/hr Cefazolin Sodium/Dextrose 2 gm (/ Premix) 50 mls @ 100 mls/hr IV Q8H [facility] Stop: 04/28/18 20:29 Last Admin: 04/28/18 20:12 Dose: 100 mls/hr Iopamidol (Isovue-300 (61%)) 100 ml IVPUSH ONETIME ONE Stop: 04/27/18 17:33 Last Admin: 04/27/18 17:33 Dose: 100 ml Ketamine HCl (Ketalar) Confirm Administered Dose 500 mg .ROUTE .STK-MED ONE Stop: 04/27/18 19:09 Ketorolac Tromethamine (Toradol) Confirm Administered Dose 30 mg .ROUTE .STK- MED ONE Stop: 04/27/18 22:38 Ketorolac Tromethamine (Toradol) 30 mg IVPUSH Q6H [facility] Last Admin: 04/29/18 16:30 Dose: 30 mg Lorazepam (Ativan) 0.5 mg IVPUSH ONETIME ONE Stop: 04/27/18 18:36 Last Admin: 04/28/18 01:42 Dose: Not Given Lorazepam (Ativan) Confirm Administered Dose 2 mg .ROUTE .STK-MED ONE Stop: 04/27/18 18:37 Last Admin: 04/28/18 01:43 Dose: Not Given Magnesium Hydroxide (Milk Of Magnesia) 30 ml PO ONETIME ONE Stop: 05/02/18 09:31 Last Admin: 05/02/18 10:46 Dose: 30 ml Meperidine HCl (Demerol) 12.5 mg IVPUSH ONETIME ONE Stop: 04/27/18 21:56 Last Admin: 04/28/18 01:43 Dose: Not Given Midazolam HCl (Versed 1 Mg/Ml) Confirm Administered Dose 2 mg .ROUTE .STK-MED ONE Stop: 04/27/18 19:08 Morphine Sulfate (Morphine [employer]el [employer]ic 30 Mg In 30 Ml) 0 mg IV ASDIRECTED PRN; Protocol PRN Reason: Pain (severe 7-10) Last Admin: 04/29/18 02:50 Dose: 30 mg Neostigmine Methylsulfate (Neostigmine) Confirm Administered Dose 5 mg .ROUTE .STK-MED ONE Stop: 04/27/18 22:33 Ondansetron HCl (Zofran) Confirm Administered Dose 4 mg .ROUTE .STK-MED ONE Stop: 04/27/18 19:10 Ondansetron HCl (Zofran) 4 mg IVPUSH ONETIME PRN PRN Reason: Nausea/Vomiting Pantoprazole Sodium (Protonix Iv) 40 mg IV DAILY [facility] Last Admin: 04/30/18 09:06 Dose: 40 mg Phenylephrine HCl (Phenylephrine In Ns 100 Mcg/Ml) Confirm Administered Dose 1 mg .ROUTE .STK-MED ONE Stop: 04/27/18 20:26 Propofol (Diprivan 20 Ml) Confirm Administered Dose 200 mg .ROUTE .STK-MED ONE Stop: 04/27/18 19:08 Rocuronium Blairs (Zemuron) Confirm Administered Dose 50 mg .ROUTE .STK-MED ONE Stop: 04/27/18 19:10 Rocuronium Blairs (Zemuron) Confirm Administered Dose 50 mg .ROUTE .STK-MED ONE Stop: 04/27/18 21:07 Ropivacaine (Naropin 0.5%) Confirm Administered Dose 30 ml .ROUTE .STK-MED ONE Stop: 04/27/18 23:18 Succinylcholine Chloride (Succinylcholine In Ns Pf) Confirm Administered Dose 100 mg .ROUTE .STK-MED ONE Stop: 04/27/18 20:04 Vitamin B Complex/Vit C/Folic Acid (Nephrocaps) 1 tab PO DAILY [facility] Last Admin: 04/30/18 11:39 Dose: Not Given - Exam General: Alert, Oriented - Problem List Review Problem List Initiated/Reviewed/Updated: Yes - My Orders Last 24 Hours: Active Orders 24 hr Category Date Time Status Ready for Discharge [RC] PER UNIT ROUTINE Care 05/01/18 20:39 Inactive CBC W/O DIFF,HEMOGRAM [HEME] MOTH@0700 Lab 05/03/18 07:00 Ordered CBC W/O DIFF,HEMOGRAM [HEME] MOTH@0700 Lab 05/07/18 07:00 Ordered CBC W/O DIFF,HEMOGRAM [HEME] MOTH@0700 Lab 05/10/18 07:00 Ordered CBC W/O DIFF,HEMOGRAM [HEME] MOTH@0700 Lab 05/14/18 07:00 Ordered CBC W/O DIFF,HEMOGRAM [HEME] MOTH@0700 Lab 05/17/18 07:00 Ordered Medication Orders Acetaminophen (Tylenol) 975 mg PO Q6H [facility] Last Admin: 05/02/18 09:38 Dose: 975 mg Admin: 05/02/18 04:55 Dose: 975 mg Admin: 05/01/18 21:37 Dose: 975 mg Admin: 05/01/18 15:13 Dose: 975 mg Admin: 05/01/18 10:31 Dose: 975 mg Admin: 05/01/18 05:33 Dose: Admin: 05/01/18 02:16 Dose: 975 mg Admin: 04/30/18 22:07 Dose: Admin: 04/30/18 20:53 Dose: 975 mg Admin: 04/30/18 16:09 Dose: 975 mg Admin: 04/30/18 09:04 Dose: 975 mg Admin: 04/30/18 04:19 Dose: 975 mg Admin: 04/29/18 22:16 Dose: 975 mg Admin: 04/29/18 16:30 Dose: 975 mg Admin: 04/29/18 09:15 Dose: 975 mg Admin: 04/29/18 04:57 Dose: 975 mg Admin: 04/28/18 22:30 Dose: 975 mg Admin: 04/28/18 16:17 Dose: 975 mg Admin: 04/28/18 10:20 Dose: 975 mg Admin: 04/28/18 04:32 Dose: Not Given Admin: 04/28/18 00:55 Dose: Not Given Ascorbic Acid (Vitamin C) 500 mg PO DAILY [facility] Last Admin: 05/02/18 09:38 Dose: 500 mg Admin: 05/01/18 08:05 Dose: 500 mg Admin: 04/30/18 10:08 Dose: 500 mg Cyclobenzaprine HCl (Flexeril) 10 mg PO TID PRN PRN Reason: Spasms Last Admin: 05/02/18 04:55 Dose: 10 mg Admin: 05/01/18 15:13 Dose: 10 mg Admin: 05/01/18 08:05 Dose: 10 mg Admin: 04/30/18 18:30 Dose: 10 mg Admin: 04/30/18 02:14 Dose: 10 mg Admin: 04/29/18 11:46 Dose: 10 mg Admin: 04/29/18 02:49 Dose: 10 mg Docusate Sodium (Colace) 100 mg PO BID [facility] Last Admin: 05/02/18 09:39 Dose: 100 mg Admin: 05/01/18 21:37 Dose: 100 mg Admin: 05/01/18 08:05 Dose: 100 mg Admin: 04/30/18 20:54 Dose: 100 mg Admin: 04/30/18 09:04 Dose: 100 mg Admin: 04/29/18 22:07 Dose: 100 mg Admin: 04/29/18 08:46 Dose: 100 mg Admin: 04/28/18 20:16 Dose: 100 mg Admin: 04/28/18 10:20 Dose: 100 mg Ferrous Sulfate (Slow Fe) 140 mg PO DAILY [facility] Last Admin: 05/02/18 09:38 Dose: 140 mg Admin: 05/01/18 08:05 Dose: 140 mg Admin: 04/30/18 10:08 Dose: 140 mg Heparin Sodium (Porcine) (Heparin Sodium) 5,000 units SUBCUT Q8H [facility] Last Admin: 05/02/18 14:50 Dose: 5,000 units Admin: 05/02/18 06:18 Dose: 5,000 units Admin: 05/01/18 22:31 Dose: Not Given Admin: 05/01/18 21:36 Dose: 5,000 units Admin: 05/01/18 15:13 Dose: 5,000 units Admin: 05/01/18 06:19 Dose: 5,000 units Admin: 05/01/18 02:17 Dose: 5,000 units Admin: 04/30/18 16:09 Dose: 5,000 units Admin: 04/30/18 06:46 Dose: 5,000 units Admin: 04/29/18 22:06 Dose: 5,000 units Admin: 04/29/18 16:29 Dose: 5,000 units Admin: 04/29/18 08:44 Dose: 5,000 units Admin: 04/28/18 22:31 Dose: 5,000 units Admin: 04/28/18 16:17 Dose: 5,000 units Admin: 04/28/18 06:32 Dose: 5,000 units Admin: 04/28/18 00:37 Dose: 5,000 units Hydromorphone HCl (Dilaudid) 0.2 - 0.6 mg IVPUSH Q1H PRN PRN Reason: Pain (severe 7-10) Last Admin: 04/30/18 18:27 Dose: 0.5 mg Miscellaneous Information (Remove Patch) 1 ea TRDERM DAILY [facility] Last Admin: 05/02/18 09:40 Dose: 1 ea Admin: 05/01/18 08:08 Dose: 1 ea Admin: 04/30/18 09:13 Dose: 1 ea Admin: 04/29/18 08:48 Dose: 1 ea Multivitamins (Thera) 1 each PO DAILY [facility] Last Admin: 05/02/18 09:38 Dose: 1 each Admin: 05/01/18 08:05 Dose: 1 each Admin: 04/30/18 10:08 Dose: 1 each Naloxone HCl (Narcan) 0.4 mg IVPUSH Q2M PRN PRN Reason: Respiratory Distress Nicotine (Habitrol) 21 mg TRDERM DAILY [facility] Last Admin: 05/02/18 09:39 Dose: 21 mg Admin: 05/01/18 08:07 Dose: 21 mg Admin: 04/30/18 09:12 Dose: 21 mg Admin: 04/29/18 08:47 Dose: 21 mg Admin: 04/28/18 20:49 Dose: 21 mg Ondansetron HCl (Zofran) 4 mg IV Q4H PRN PRN Reason: Nausea/Vomiting Oxycodone HCl (Oxycodone) 5 - 10 mg PO Q4H PRN PRN Reason: Pain (moderate 4-6) Last Admin: 05/02/18 14:48 Dose: 10 mg Admin: 05/02/18 10:45 Dose: 5 mg Admin: 05/02/18 06:17 Dose: 10 mg Admin: 05/02/18 00:18 Dose: 10 mg Admin: 05/01/18 18:23 Dose: 10 mg Admin: 05/01/18 13:41 Dose: 10 mg Admin: 05/01/18 08:05 Dose: 10 mg Admin: 05/01/18 02:15 Dose: 10 mg Admin: 04/30/18 20:54 Dose: 10 mg Admin: 04/30/18 14:12 Dose: 10 mg Admin: 04/30/18 09:05 Dose: 10 mg Admin: 04/30/18 02:14 Dose: 10 mg Admin: 04/29/18 22:17 Dose: 10 mg Admin: 04/29/18 17:38 Dose: 10 mg Admin: 04/29/18 10:36 Dose: 10 mg Sodium Chloride (Saline Flush) 10 ml FLUSH ASDIRECTED PRN PRN Reason: Keep Vein Open - Plan Plan (Free Text/Narrative):: general surgery problems resolved plan transfer care to Dr. Myron LORA
--- NOTE | 2018-05-02 20:19 | PCM.CONSN ---
- General Info Date of Service: 05/02/18 - Patient Data Vitals - Most Recent: Last Vital Signs Temp 36.7 C 05/02/18 11:28 Pulse 103 H 05/02/18 11:28 Resp 14 05/02/18 10:54 BP 141/83 H 05/02/18 10:54 Pulse Ox 97 05/02/18 11:28 Weight - Most Recent: 119.612 kg I&O - Last 24 Hours: Intake & Output 05/02/18 05/02/18 05/02/18 06:59 14:59 22:59 Intake Total 700 120 Output Total 800 Balance -100 120 Lab Results Last 24 Hours: Laboratory Results - last 24 hr 05/01/18 05/02/18 05/02/18 Range/Units 07:10 14:30 14:30 Sodium 137 (136-145) mEq/L Potassium 4.2 (3.5-5.1) mEq/L Chloride 102 (98-107) mEq/L Carbon Dioxide 27 (21-32) mEq/L Anion Gap 12.2 (5-15) BUN 16 (7-18) mg/dL Creatinine 1.0 (0.7-1.3) mg/dL Est Cr Clr Drug Dosing 108.50 mL/min Estimated GFR (MDRD) > 60 (>60) mL/min BUN/Creatinine Ratio 16.0 (14-18) Glucose 132 H (74-106) mg/dL Calcium 8.9 (8.5-10.1) mg/dL Magnesium 2.2 (1.8-2.4) mg/dl Total Bilirubin 1.0 (0.2-1.0) mg/dL AST 61 H (15-37) U/L ALT 62 (16-63) U/L Alkaline Phosphatase 59 (46-116) U/L Total Protein 7.4 (6.4-8.2) g/dl Albumin 2.6 L (3.4-5.0) g/dl Globulin 4.8 gm/dL Albumin/Globulin Ratio 0.5 L (1-2) Blood Type O NEGATIVE Gel Antibody Screen Negative Crossmatch See Detail Med Orders - Current: Current Medications Acetaminophen (Tylenol) 975 mg PO Q6H [facility] Last Admin: 05/02/18 18:40 Dose: 975 mg Ascorbic Acid (Vitamin C) 500 mg PO DAILY [facility] Last Admin: 05/02/18 09:38 Dose: 500 mg Cyclobenzaprine HCl (Flexeril) 10 mg PO TID PRN PRN Reason: Spasms Last Admin: 05/02/18 18:41 Dose: 10 mg Docusate Sodium (Colace) 100 mg PO BID [facility] Last Admin: 05/02/18 09:39 Dose: 100 mg Ferrous Sulfate (Slow Fe) 140 mg PO DAILY [facility] Last Admin: 05/02/18 09:38 Dose: 140 mg Furosemide (Lasix) 40 mg IVPUSH ONETIME ONE Stop: 05/02/18 23:01 Heparin Sodium (Porcine) (Heparin Sodium) 5,000 units SUBCUT Q8H [facility] Last Admin: 05/02/18 14:50 Dose: 5,000 units Hydromorphone HCl (Dilaudid) 0.2 - 0.6 mg IVPUSH Q1H PRN PRN Reason: Pain (severe 7-10) Last Admin: 04/30/18 18:27 Dose: 0.5 mg Miscellaneous Information (Remove Patch) 1 ea TRDERM DAILY [facility] Last Admin: 05/02/18 09:40 Dose: 1 ea Multivitamins (Thera) 1 each PO DAILY [facility] Last Admin: 05/02/18 09:38 Dose: 1 each Naloxone HCl (Narcan) 0.4 mg IVPUSH Q2M PRN PRN Reason: Respiratory Distress Nicotine (Habitrol) 21 mg TRDERM DAILY [facility] Last Admin: 05/02/18 09:39 Dose: 21 mg Ondansetron HCl (Zofran) 4 mg IV Q4H PRN PRN Reason: Nausea/Vomiting Oxycodone HCl (Oxycodone) 5 - 10 mg PO Q4H PRN PRN Reason: Pain (moderate 4-6) Last Admin: 05/02/18 14:48 Dose: 10 mg Sodium Chloride (Saline Flush) 10 ml FLUSH ASDIRECTED PRN PRN Reason: Keep Vein Open Discontinued Medications Bupivacaine HCl (Marcaine 0.25%) Confirm Administered Dose 30 ml .ROUTE .STK- MED ONE Stop: 04/27/18 19:33 Last Admin: 04/27/18 22:40 Dose: 30 ml Cefazolin Sodium (Ancef) Confirm Administered Dose 2 gm .ROUTE .STK-MED ONE Stop: 04/27/18 20:20 Cefazolin Sodium/Dextrose (Ancef) Confirm Administered Dose 2 gm IV .[facility]-MED ONE Stop: 04/28/18 01:00 Last Admin: 04/28/18 01:28 Dose: Not Given Dexamethasone (Dexamethasone) Confirm Administered Dose 8 mg .ROUTE .[facility] ONE Stop: 04/27/18 19:10 Diphenhydramine HCl (Benadryl) 25 mg IVPUSH Q6H PRN PRN Reason: Pruritis Epinephrine HCl (Adrenalin) Confirm Administered Dose 1 mg .ROUTE .[facility]-MED ONE Stop: 04/27/18 23:18 Fentanyl (Sublimaze) Confirm Administered Dose 100 mcg .ROUTE .[facility]-MED ONE Stop: 04/27/18 16:23 Last Admin: 04/28/18 01:42 Dose: Not Given Fentanyl (Sublimaze) Confirm Administered Dose 250 mcg .ROUTE .[facility]-MED ONE Stop: 04/27/18 19:09 Fentanyl (Sublimaze) 50 mcg IVPUSH Q5M PRN PRN Reason: Pain Glycopyrrolate () Confirm Administered Dose 1 mg .ROUTE .[facility]-MED ONE Stop: 04/27/18 22:33 Hydromorphone HCl (Dilaudid) Confirm Administered Dose 1 mg .ROUTE .[facility]-MED ONE Stop: 04/27/18 16:18 Last Admin: 04/28/18 01:42 Dose: Not Given Hydromorphone HCl (Dilaudid) Confirm Administered Dose 1 mg .ROUTE .[facility]-MED ONE Stop: 04/27/18 16:43 Last Admin: 04/28/18 01:42 Dose: Not Given Hydromorphone HCl (Dilaudid) 1 mg IVPUSH ONETIME ONE Stop: 04/27/18 17:57 Last Admin: 04/28/18 01:42 Dose: Not Given Hydromorphone HCl (Dilaudid) Confirm Administered Dose 1 mg .ROUTE .[facility]-MED ONE Stop: 04/27/18 17:58 Last Admin: 04/28/18 01:42 Dose: Not Given Hydromorphone HCl (Dilaudid) 0.2 - 0.8 mg IVPUSH Q1H PRN PRN Reason: Pain Hydromorphone HCl (Dilaudid) 0.5 mg IVPUSH Q15M PRN PRN Reason: Pain (severe 7-10) Hydromorphone HCl (Dilaudid) 0.2 - 0.6 mg IVPUSH Q1H PRN PRN Reason: Pain (severe 7-10) Lactated Ringer's (Ringers, Lactated) 1,000 mls @ 125 mls/hr IV ASDIRECTED [facility] Sodium Chloride (Normal Saline) 1,000 mls @ 125 mls/hr IV ASDIRECTED [facility] Lidocaine HCl (Xylocaine-Mpf 1%) Confirm Administered Dose 4 mls @ as directed .ROUTE .STK-MED ONE Stop: 04/27/18 19:10 Lactated Ringer's (Ringers, Lactated) Confirm Administered Dose 1,000 mls @ as directed .ROUTE .STK-MED ONE Stop: 04/27/18 20:49 Lactated Ringer's (Ringers, Lactated) Confirm Administered Dose 1,000 mls @ as directed .ROUTE .STK-MED ONE Stop: 04/27/18 20:49 Lactated Ringer's (Ringers, Lactated) Confirm Administered Dose 1,000 mls @ as directed .ROUTE .STK-MED ONE Stop: 04/27/18 22:06 Lidocaine HCl (Xylocaine-Mpf 1%) Confirm Administered Dose 2 mls @ as directed .ROUTE .STK-MED ONE Stop: 04/27/18 23:18 Sodium Chloride (Normal Saline) 1,000 mls @ 100 mls/hr IV ASDIRECTED [facility] Last Admin: 04/28/18 01:37 Dose: 100 mls/hr Acetaminophen (Ofirmev) 100 mls @ 400 mls/hr IV NOW ONE Stop: 04/28/18 00:35 Last Admin: 04/28/18 00:37 Dose: 400 mls/hr Cefazolin Sodium/Dextrose 2 gm (/ Premix) 50 mls @ 100 mls/hr IV Q8H [facility] Stop: 04/28/18 20:29 Last Admin: 04/28/18 20:12 Dose: 100 mls/hr Iopamidol (Isovue-300 (61%)) 100 ml IVPUSH ONETIME ONE Stop: 04/27/18 17:33 Last Admin: 04/27/18 17:33 Dose: 100 ml Ketamine HCl (Ketalar) Confirm Administered Dose 500 mg .ROUTE .STK-MED ONE Stop: 04/27/18 19:09 Ketorolac Tromethamine (Toradol) Confirm Administered Dose 30 mg .ROUTE .STK- MED ONE Stop: 04/27/18 22:38 Ketorolac Tromethamine (Toradol) 30 mg IVPUSH Q6H [facility] Last Admin: 04/29/18 16:30 Dose: 30 mg Lorazepam (Ativan) 0.5 mg IVPUSH ONETIME ONE Stop: 04/27/18 18:36 Last Admin: 04/28/18 01:42 Dose: Not Given Lorazepam (Ativan) Confirm Administered Dose 2 mg .ROUTE .STK-MED ONE Stop: 04/27/18 18:37 Last Admin: 04/28/18 01:43 Dose: Not Given Magnesium Hydroxide (Milk Of Magnesia) 30 ml PO ONETIME ONE Stop: 05/02/18 09:31 Last Admin: 05/02/18 10:46 Dose: 30 ml Meperidine HCl (Demerol) 12.5 mg IVPUSH ONETIME ONE Stop: 04/27/18 21:56 Last Admin: 04/28/18 01:43 Dose: Not Given Midazolam HCl (Versed 1 Mg/Ml) Confirm Administered Dose 2 mg .ROUTE .STK-MED ONE Stop: 04/27/18 19:08 Morphine Sulfate (Morphine Supervisor [employer]iler 30 Mg In 30 Ml) 0 mg IV ASDIRECTED PRN; Protocol PRN Reason: Pain (severe 7-10) Last Admin: 04/29/18 02:50 Dose: 30 mg Neostigmine Methylsulfate (Neostigmine) Confirm Administered Dose 5 mg .ROUTE .STK-MED ONE Stop: 04/27/18 22:33 Ondansetron HCl (Zofran) Confirm Administered Dose 4 mg .ROUTE .STK-MED ONE Stop: 04/27/18 19:10 Ondansetron HCl (Zofran) 4 mg IVPUSH ONETIME PRN PRN Reason: Nausea/Vomiting Pantoprazole Sodium (Protonix Iv) 40 mg IV DAILY [facility], [facility]1983 Last Admin: 04/30/18 09:06 Dose: 40 mg Phenylephrine HCl (Phenylephrine In Ns 100 Mcg/Ml) Confirm Administered Dose 1 mg .ROUTE .STK-MED ONE Stop: 04/27/18 20:26 Propofol (Diprivan 20 Ml) Confirm Administered Dose 200 mg .ROUTE .STK-MED ONE Stop: 04/27/18 19:08 Rocuronium [place] (Zemuron) Confirm Administered Dose 50 mg .ROUTE .STK-MED ONE Stop: 04/27/18 19:10 Rocuronium [place] (Zemuron) Confirm Administered Dose 50 mg .ROUTE .STK-MED ONE Stop: 04/27/18 21:07 Ropivacaine (Naropin 0.5%) Confirm Administered Dose 30 ml .ROUTE .STK-MED ONE Stop: 04/27/18 23:18 Succinylcholine Chloride (Succinylcholine In Ns Pf) Confirm Administered Dose 100 mg .ROUTE .STK-MED ONE Stop: 04/27/18 20:04 Vitamin B Complex/Vit C/Folic Acid (Nephrocaps) 1 tab PO DAILY ANN MARIE Last Admin: 04/30/18 11:39 Dose: Not Given Consult PN Assessment/Plan Procedures: Procedures CT LUMBAR SPINE W/O DYE (01/01/15) CULTR BACTERIA EXCEPT BLOOD (03/09/15) CULTURE AEROBIC IDENTIFY (03/09/15) DRAINAGE OF SKIN ABSCESS (03/09/15) EMERGENCY DEPT VISIT (03/10/15) EMERGENCY DEPT VISIT (01/01/15) EMERGENCY DEPT VISIT (12/05/14) MICROBE SUSCEPTIBLE DIFFUSE (03/09/15) MICROBE SUSCEPTIBLE DISK (03/09/15) SMEAR GRAM STAIN (03/09/15) THER/PROPH/DIAG INJ SC/IM (03/09/15) URINE BACTERIA CULTURE (03/09/15) X-RAY EXAM L-S SPINE 2/3 VWS (12/04/14) My Orders Last 24 Hours: My Active Orders 05/02/18 17:51 RED BLOOD CELLS LP [BBK] Routine TYPE AND SCREEN [BBK] Routine Transfuse RBC [Transfuse Red Blood Cells] [COMM] Routine 05/02/18 17:56 DRUG SCREEN, URINE [URCHEM] Routine 05/02/18 23:00 Furosemide [Lasix] 40 mg IVPUSH ONETIME ONE
[2018-05-02] MEDS ORDERED: LORazepam 2 MG/ML SDV IVPUSH PRN (20:21)
[2018-05-02] MEDS ORDERED: Sodium Chloride 0.9% 500 ML IV ONE (22:06)
[2018-05-02] MEDS ORDERED: methylPREDNISolone Sodium Succinate 125 MG/2 ML SDV IVPUSH ONE (22:55)
[2018-05-02] MEDS ORDERED: Sodium Chloride 0.9% 2,000 ML IV ONE (22:56)
[2018-05-02] MEDS ORDERED: Famotidine 20 MG/2 ML SDV IVPUSH ONE (22:56)
[2018-05-02] MEDS ORDERED: diphenhydrAMINE 50 MG/ML SDV IVPUSH ONE (22:56)
[2018-05-02] MEDS ORDERED: Furosemide 40 MG/4 ML VIAL IVPUSH ONE (23:00)
--- NOTE | 2018-05-03 01:02 | PCM.SN ---
- Free Text/Narrative Note: Called for difficult IV insertion. His prior IV in his right forearm has infiltrated. Previous attempts unsuccessful by nursing staff. Attempted x2 with 20 gauge in right upper arm with ultrasound. Good blood return without being able to advance the catheter. Left arm attempted with 20 gauge x 2 able to obtain blood for lab specimen but unable to advance catheter. I spoke with the patient regarding the possible need for a central line. His girlfriend became upset at the number of attempts. At this time they are requesting no further attempts for IV access.
[2018-05-03] MEDS: oxyCODONE 5 MG Tab PO PRN ×3 (01:09→11:51)
[2018-05-03] MEDS: Acetaminophen 325 MG Tab PO SCH ×3 (01:09→11:03)
[2018-05-03] MEDS: Heparin Sodium 5,000 Units/ML Vial SUBCUT SCH ×2 (01:23→07:36)
[2018-05-03] MEDS: Cyclobenzaprine 10 MG Tab PO PRN (05:44)
--- NOTE | 2018-05-03 06:35 | CR ---
Chest: Portable view of the chest was obtained. Comparison: Prior chest x-ray of 04/27/18. Heart size is normal. Tortuous thoracic aorta is seen. Old fracture which appears healed seen within the right clavicle. Lungs are clear with no acute parenchymal change. No pneumothorax is seen. Impression: 1. Incidental findings. Nothing acute is seen on portable chest x-ray. Diagnostic code #1 I agree with preliminary report from [facility], finalized on 05/03/18, 12:44 AM Central Time
[2018-05-03] MEDS: Nicotine 21 MG/24 Hr Patch TRDERM SCH (10:11)
[2018-05-03] MEDS: Docusate Sodium 100 MG Cap PO SCH (10:11)
[2018-05-03] MEDS: Ascorbic Acid 500 MG Tab PO SCH (10:13)
[2018-05-03] MEDS: Ferrous Sulfate 140 MG Tab PO SCH (10:13)
[2018-05-03] MEDS: Multivitamins,Therapeutic Tab PO SCH (10:13)
--- NOTE | 2018-05-03 11:20 | PCM.SN ---
<Braulio Candelaria - Last Filed: 05/03/18 12:12> - Free Text/Narrative Note: Hospitalist medicine was consulted on Kenneth Dugan, a 47 yo male who is post- op day 6 of an open reduction with intra-medullary nailing of right femur fracture. He is also noted to have a left-sided talus fracture which is nondisplaced as well as a concussion. Hospital medicine was consulted due to tachycardia. It was noted that the patient had a hemoglobin in the sevens and order further transfusion was initiated last night however the patient's IV reportedly infiltrated and IV access was unable to be obtained from that point on. Multiple attempts were made at re-establishing and IV including CRNAs. The patient ultimately refused any more IV attempts. 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 This morning a 12 lead EKG was obtained showing a sinus rhythm at rate of 94 bpm with a QTC of 432. There is some T-wave flattening on V1 and aVL which is nonspecific. No signs of ischemia or other EKG abnormalities are noted. Patient denies any shortness of breath chest pain or palpitations. No abdominal pain, difficulty with urination, headache, dizziness, syncopal episodes. Troponin and CK-MB of are obtained which are both within normal limits. Magnesium was checked is also within normal limits. BMP from day before was unremarkable. Chest x-ray had been ordered the night before and shows no acute changes. He does have mild leukocytosis with a white count around 11, however patient is postsurgical and this is likely from stress reaction. Urine drug screen was initially positive for opioids, amphetamines, methamphetamine, benzodiazepine, marijuana. Repeat urine drug screen was obtained yesterday evening, many days after he's been in the hospital, and was positive for oxycodone, amphetamines, and marijuana. Unsure why drug screen would still be positive for amphetamines as the patient has not been given anything that should affect this and he should have metabolized to a point below detection for prior results. Suspect this may be the cause of patient's tachycardia. Physical exam is grossly unremarkable with good lung sounds in all hickman and normal rate and rhythm. Abdomen is soft and nontender. He does have a hard cast on his left leg from below his knee to his toes. He has good sensation on his toes and they are nice and pink. Other 3 extremities are neurovascularly intact with 3+ pulses and good sensation. Case discussed with Dr. Keller and Dr. Sanches who both agree patient should be cleared for discharge. Patient requests nicotine patch after discharge and this will be sent to his pharmacy. Had a lengthy discussion about resources available in the community including and he quits and others. We discussed how the goal will be to trim down the nicotine patches and eventually stop smoking. For this he should follow-up with his primary care provider. All other follow-up, medications, and treatment plan will be arranged by the primary team. <Bettye Keller M - Last Filed: 05/03/18 15:46> - Free Text/Narrative Note: See above summary of events regarding hospitalist interaction with patient for sinus tachycardia. He now has documented sinus rhythm per recent ECG on the day of discharge. Please note positive drug screen as mentioned during hospitalization. Follow up appointments have been arranged by the primary service, initially general surgery and currently ortho surgery. Equipment needed at DC, etc are per primary service. Suggestions and recommendations for out patient care were arranged by case management, et al. He is medically stable for DC as mentioned above.
[2018-05-03 12:24] VITALS: BP 131/82
== END 2018-05-03 13:35 | disposition home health service (06) | DRG 481 ==
LOC: JD.ED 15:50 → JD.SDS 18:32 → JD.ICU 04-28 00:01 → JD.MS 04-29 12:12
PROVIDERS: ADMIT Orthopaedic Surgery; ATTEND Orthopaedic Surgery
PROC: 0QSB06Z Reposition Right Lower Femur with Intramedullary Internal Fixation Device, Open Approach (ICD-10-PCS; principal; 2018-04-27)
PROC: 3E0T3BZ Introduction of Anesthetic Agent into Peripheral Nerves and Plexi, Percutaneous Approach (ICD-10-PCS; 2018-04-28)
DX: S72.351A Displaced comminuted fracture of shaft of right femur, initial encounter for closed fracture (principal); S06.0X9A Concussion with loss of consciousness of unspecified duration, initial encounter; F11.20 Opioid dependence, uncomplicated; S82.892A Other fracture of left lower leg, initial encounter for closed fracture; Z88.0 Allergy status to penicillin; F17.200 Nicotine dependence, unspecified, uncomplicated; V49.49XA Driver injured in collision with other motor vehicles in traffic accident, initial encounter; R00.0 Tachycardia, unspecified; G89.18 Other acute postprocedural pain
CPT/HCPCS: 01230; 36415; 36430; 64447; 70450; 70450-26; 71045; 71045-26; 71260; 71260-26; 72125; 72125-26; 72170; 72170-26; 73551-26-RT; 73551-RT; 73552-26-RT; 73552-RT; 73590-26-RT; 73590-RT; 73610-26-LT; 73610-LT; 73700-26-LT; 73700-26-RT; 73700-LT; 73700-RT; 74177; 74177-26; 76000; 76000-26; 80053; 80306; 81001; 82553; 83690; 83735; 84484; 85025; 85027; 85610; 85730; 86850; 86900; 86901; 86922; 93005; 93010; 96374; 96375; 97110-GO; 97110-GP; 97161-GP; 97167-GO; 97530-GO; 97530-GP; 97542-GP; 99284; 99285-25; A9270-GY; C1713; C1769; C1776; C9113; G0480; J0131; J0171; J0330; J0690; J1100; J1170; J1644; J1885; J2001; J2060; J2250; J2274; J2370; J2405; J2704; J2710; J2795; J3010; J3490; J7040; J7120; P9016; Q9967

== ENCOUNTER 2018-11-28 09:49 | Inpatient (IN) | payer MEDICAID ==
[2018-11-28] MEDS ORDERED: Sodium Chloride 0.9% 10 ML Syringe FLUSH PRN (10:48)
[2018-11-28] MEDS ORDERED: Clindamycin Phosphate in D5W 900 MG in Premix Bag 1 BAG IV ONE ×2 (10:49)
[2018-11-28] MEDS ORDERED: Furosemide 40 MG/4 ML VIAL IVPUSH ONE (10:52)
--- NOTE | 2018-11-28 10:52 | EDM.PDOC ---
ED HPI GENERAL MEDICAL PROBLEM - General Chief Complaint: Lower Extremity Injury/Pain Stated Complaint: SWOLLEN LEGS Time Seen by Provider: 11/28/18 10:43 Source of Information: Reports: Patient History Limitations: Reports: No Limitations - History of Present Illness INITIAL COMMENTS - FREE TEXT/NARRATIVE: 47-year-old male presents to the ED with bilateral lower extremity pain erythema and marked swelling. This is come on over. Of several weeks. The increased erythema and redness came on about a week ago and is getting worse. Patient was seen through the ED 2 days ago but could not stay in the hospital as advised. 2. Court and had the Prilosec clear up at home before he could come back. His blood cultures came back positive this morning for gram-positive cocci in one of the bottles. Presumably this represents a staph/strep infection. He is febrile and has had some chills and rigors. Appetite remains fair. No diarrhea and nausea vomiting. Denies cough or sputum production. Can hardly sleep last night due to pain in his lower extremities. He has a chronic smoker for many years [id number] history. She reports no previous cellulitis in his lower extremities before or DVT. Onset: Gradual Onset Date: 11/21/18 Duration: Day(s):, Constant, Getting Worse Location: Reports: Lower Extremity, Left, Lower Extremity, Right Quality: Reports: Ache, Burning, Throbbing Severity: Severe Improves with: Reports: Rest Worsens with: Reports: Other, Movement Context: Reports: Other (Spontaneous occurrence over the last week or more). Denies: Activity (Trying to walk is very painful), Exercise, Lifting, Sick Contact, Trauma Associated Symptoms: Reports: Cough, cough w sputum (Chronic cough from smoking) , Fever/Chills, Loss of Appetite, Malaise, Rash, Weakness. Denies: Confusion, Chest Pain, Diaphoresis ( patient of brownish sputum production), Headaches ( Has a fever and has had intermittent chills and rigors the last 2 days.), Nausea /Vomiting (Both lower extremities with cellulitis evident), Seizure, Shortness of Breath, Syncope (Mild loss of appetite) Treatments FIELD EXAMINER: Reports: Other (see below) (None.) Bilateral Lower Leg Pain Score (Numeric/FACES): 8 - Related Data Allergies Allergy/AdvReac Type Severity Reaction Status Date / Time No Known Allergies Allergy Verified 11/28/18 10:06 Home Meds: Home Meds . [No Known Home Meds] 11/26/18 [History] Past Medical History HEENT History: Reports: Impaired Vision Cardiovascular History: Reports: None Respiratory History: Reports: COPD (Not diagnosed. [id number] history of cigarette smoking however. Suspect cor pulmonale. Severe lower extremity edema) Gastrointestinal History: Reports: None Genitourinary History: Reports: None Musculoskeletal History: Reports: Fracture Other Musculoskeletal History: R collar bone, right femur left ankle Neurological History: Reports: None Psychiatric History: Reports: Addiction Hematologic History: Reports: None Immunologic History: Reports: None Oncologic (Cancer) History: Reports: None Dermatologic History: Reports: None - Infectious Disease History Infectious Disease History: Reports: Hepatitis C (Hepatitis C positive when tested today November 28) - Past Surgical History HEENT Surgical History: Reports: Oral Surgery - History Comment History Comment: h/o heroin/opioid addition, 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 Social & Family History - Family History Family Medical History: Noncontributory Endocrine/Metabolic: Reports: Diabetes, type II Oncologic: Reports: Brain, Lung - Tobacco Use Smoking Status *Q: Current Every Day Smoker Tobacco Use Within Last Twelve Months: Cigarettes ([id number] history) Years of Tobacco use: 20 Packs/Tins Daily: 1 - Caffeine Use Caffeine Use: Reports: Coffee, Tea - Recreational Drug Use Recreational Drug Use: Yes Drug Use in Last 12 Months: Yes Recreational Drug Type: Reports: Heroin, Methamphetamine Recreational Drug Use Frequency: Weekly - Living Situation & Occupation Living situation: Reports: with Significant Other (Has girlfiend) Review of Systems - Review of Systems Review Of Systems: See Below Constitutional: Reports: Chills, Fever, Weakness Eyes: Reports: No Symptoms Ears: Reports: No Symptoms Mouth/Throat: Reports: No Symptoms, Other (Teeth are in poor condition. Tongue is moist) Respiratory: Reports: No Symptoms, Wheezing. Denies: Shortness of Breath, Pleuritic Chest Pain (Occasional expiratory wheeze on forced expiration), Cough , Sputum, Hemoptysis Cardiovascular: Reports: Edema. Denies: Chest Pain, Irregular Heart Rate ( Severe both lower extremities up past the knees I 4+ pitting), Lightheadedness, Palpitations, Syncope GI/Abdominal: Reports: Decreased Appetite (Mildly decreased appetite.) Genitourinary: Reports: No Symptoms Musculoskeletal: Reports: Back Pain, Other (Bilateral lower extremity pain at the site of cellulitis and edema in both lower extremities) Skin: Reports: Rash (Cellulitis both lower extremities. 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 Denies: Burn( s) ( where he tried to put on some sandals and superficially injured the skin causing some bleeding) Neurological: Reports: No Symptoms, Difficulty Walking (Due to the severe edema both lower extremities). Denies: Confusion, Dizziness, Headache, Numbness Psychiatric: Reports: No Symptoms ED EXAM, GENERAL - Physical Exam Exam: See Below Exam Limited By: No Limitations (Vital signs) General Appearance: Alert, WD/WN, No Apparent Distress, Other (Vital signs show temperature 36.6 although patient does feel warmer than this and has a fever clinically. Pulses 1:15 and sinus at rest. Respiratory 16 BP mildly elevated 140 /90 with sats of 97% on room air) Eye Exam: Bilateral Eye: Normal Inspection (No scleral icterus.) Throat/Mouth: Other (Tongue is moist. Teeth are in bad shape.) Head: Atraumatic, Normocephalic Neck: Normal Inspection, Supple, Non-Tender, Full Range of Motion. No: Carotid Bruit, Lymphadenopathy (L), Lymphadenopathy (R) Respiratory/Chest: No Respiratory Distress, Wheezing. No: Lungs Clear ( Occasional expiratory wheeze on forced expiration.), Normal Breath Sounds, No Accessory Muscle Use, Chest Non-Tender Cardiovascular: No Gallop, No Murmur, No Rub, Tachycardia (Sinus tachycardia 1 15/m at rest.). No: Normal Peripheral Pulses, No Edema Peripheral Pulses: 0: Posterior Tibial (L) (No pulses palpable in his lower extremities due to severe edema. They are found on Doppler however.), Posterior Tibial (R), Dorsalis Pedis (L), Dorsalis Pedis (R) GI/Abdominal: Normal Bowel Sounds, Soft, Non-Tender, No Abnormal Bruit, No Mass , Pelvis Stable, Other (No surgical scars) Back Exam: Normal Inspection, Full Range of Motion. No: CVA Tenderness (L), CVA Tenderness (R) Extremities: Pedal Edema (4+ pitting edema both lower extremities up past the knees.), Increased Warmth, Other (He has a large oval or circular lesion right upper outer arm at place of previous skin abscesses from methamphetamine use. The wound was left open to heal by secondary intention and is approximately 8 cm in diameter.) Neurological: Alert (With erythema both lower extremities anteriorly compatible with cellulitis.), Oriented, CN II-XII Intact, Normal Cognition, Normal Gait Psychiatric: Normal Affect, Normal Mood Skin Exam: Warm, Dry, Erythema, Increased Warmth (Cellulitis both lower extremities left worse than the right.) ED CENTRAL LINE INSERTION - Central Line Insertion Central Line Indication: IV access Site: subclavian (R) Prep: CDC/MBT Guidelines, Betadine, Chlorhexidine Lumen: triple Gauge: 7Fr Local Anesthesia - Lidocaine (Xylocaine): 1% Plain Local Anesthetic Volume: 3cc Ultrasound guided: No Guidewire and dilator removed intact: Yes Micropuncture kit used: Yes Complications: No Secured with suture: Yes Post placement confirmation: CXR, all ports aspirated, all ports flushed CXR post-procedure: no pneumothorax Dressing applied: by provider ED PROCEDURAL SEDATION - Pre Procedure Indications: other (Placement of central line) Preparations: procedure explained, consent signed, oxygen, continuous pulse oximeter, suction, continuous registered nurse cardiac, constant attendance - Physical Exam Airway: normal anatomy Cardiovascular: normal heart sounds Respiratory: normal breath sounds Neurological: alert, responsive, NAD Meilampati Classification: 2 (Tonsillar pillars and uvula hidden by base of tongue) - Procedure Sedation Sedation: versed (parenteral) (6 mg), fentanyl (100 g) ASA Classification: 2 (Patient with a mild systemic disease) - Intra Procedure Condition during procedure: moderately sedated, oxygenation stable, maintained airway well Complications: none Reversal: none - Post Procedure Condition after procedure: responds to verbal stimuli, lethargic - Discharge Condition Patient returned to pre-procedure baseline: Yes Alert prior to discharge: Yes Ambulatory with assistance: Yes Time spent with sedated patient: 20 min EKG INTERPRETATION EKG Date: 11/28/18 Time: 10:54 Rhythm: Other Rate (Beats/Min): 110 [place]: Normal P-Wave: Present QRS: Normal ST-T: Normal QT: Prolonged (Borderline) EKG Interpretation Comments: Borderline ECG Course - Vital Signs Last Recorded V/S: Last Vital Signs Temp 36.6 C 11/28/18 10:08 Pulse 115 H 11/28/18 10:08 Resp 16 11/28/18 10:08 BP 148/90 H 11/28/18 10:08 Pulse Ox 97 11/28/18 10:08 - Orders/Labs/Meds Orders: Active Orders 24 hr Category Date Time Status Admission Status [Patient Status] [ADT] Routine ADT 11/28/18 15:15 Ordered Blood Glucose Check, Bedside [RC] ONETIME Care 11/28/18 10:48 Active EKG 12 Lead [EKG Documentation Completion] [RC] STAT Care 11/28/18 10:10 Inactive EKG Documentation Completion [RC] STAT Care 11/28/18 10:48 Active Peripheral IV Care [RC] . DIRECTED Care 11/28/18 10:49 Active Sodium Chloride 0.9% [Saline Flush] Med 11/28/18 10:48 Active 10 ml FLUSH ASDIRECTED PRN Peripheral IV Insertion Adult [OM.PC] Stat Oth 11/28/18 10:49 Ordered Medication Orders Sodium Chloride (Saline Flush) 10 ml FLUSH ASDIRECTED PRN PRN Reason: Keep Vein Open Last Admin: 11/28/18 12:14 Dose: 10 ml Labs: Laboratory Tests 11/28/18 11/28/18 11/28/18 Range/Units 11:08 11:15 11:15 WBC (4.23-9.07) K/mm3 RBC (4.63-6.08) M/mm3 Hgb (13.7-17.5) gm/L Hct (40.1-51.0) % MCV (79.0-92.2) fl MCH (25.7-32.2) pg MCHC (32.2-35.5) g/dl RDW Std Deviation (35.1-43.9) fL Plt Count (163-337) K/mm3 MPV (9.4-12.3) fl Neutrophils % (Manual) (40-60) % Band Neutrophils % (0-10) % Lymphocytes % (Manual) (20-40) % Atypical Lymphs % % Monocytes % (Manual) (2-10) % Eosinophils % (Manual) (0.8-7.0) % Basophils % (Manual) (0.2-1.2) Platelet Estimate RBC Morph Comment ESR (0-15) mm/hr PT (9.7-12.0) SECONDS INR APTT (22-31) SECONDS Sodium (136-145) mEq/L Potassium (3.5-5.1) mEq/L Chloride (98-107) mEq/L Carbon Dioxide (21-32) mEq/L Anion Gap (5-15) BUN (7-18) mg/dL Creatinine (0.7-1.3) mg/dL Est Cr Clr Drug Dosing mL/min Estimated GFR (MDRD) (>60) mL/min BUN/Creatinine Ratio (14-18) Glucose (74-106) mg/dL POC Glucose 107 H (70-105) mg/dL Calcium (8.5-10.1) mg/dL Magnesium (1.8-2.4) mg/dl Total Bilirubin (0.2-1.0) mg/dL AST (15-37) U/L ALT (16-63) U/L Alkaline Phosphatase (46-116) U/L C-Reactive Protein (<1.0) mg/dL NT-Pro-B Natriuret Pep (0-125) pg/mL Total Protein (6.4-8.2) g/dl Albumin (3.4-5.0) g/dl Globulin gm/dL Albumin/Globulin Ratio (1-2) Urine Color Yellow (Yellow) Urine Appearance Clear (Clear) Urine pH 6.0 (5.0-8.0) Ur Specific [place] > or = 1.030 (1.005-1.030) Urine Protein Negative (Negative) Urine Glucose (UA) Negative (Negative) Urine Ketones Negative (Negative) Urine Occult Blood Negative (Negative) Urine Nitrite Negative (Negative) Urine Bilirubin Negative (Negative) Urine Urobilinogen 0.2 (0.2-1.0) Ur Leukocyte Esterase Negative (Negative) Urine RBC 0-5 (0-5) /hpf Urine WBC 0-5 (0-5) /hpf Ur Epithelial Cells Not seen (0-5) /hpf Urine Bacteria Not seen (FEW) /hpf Urine Mucus Few (FEW) /hpf Urine Opiates Screen Negative (UBYNZP=889) Ur Buprenorphine Scrn Presumptive positive (CUTOFF=10) Ur Oxycodone Screen Negative (ZDO8KK=797) Urine Methadone Screen Negative (LLM6BW=594) Ur Propoxyphene Screen Negative (YQILIN=431) Ur Barbiturates Screen Negative (TJMEXP=602) Ur Tricyclics Screen Negative (UQIOQU=098) Ur Phencyclidine Scrn Negative (CUTOFF=25) Ur Amphetamine Screen Presumptive positive H (HFUOCD=005) U Methamphetamines Scrn Presumptive positive H (BTRMFE=499) U Benzodiazepines Scrn Negative (XTXNZF=671) U Cocaine Metab Screen Negative (MPCWSH=190) U Marijuana (THC) Screen Negative (CUTOFF=50) Hepatitis C Antibody (NEGATIVE) HIV-1 Ab Rapid Screen (NEGATIVE) 11/28/18 11/28/18 11/28/18 Range/Units 12:03 12:03 12:03 WBC 9.03 (4.23-9.07) K/mm3 RBC 4.71 (4.63-6.08) M/mm3 Hgb 13.6 L (13.7-17.5) gm/L Hct 39.1 L (40.1-51.0) % MCV 83.0 (79.0-92.2) fl MCH 28.9 (25.7-32.2) pg MCHC 34.8 (32.2-35.5) g/dl RDW Std Deviation 38.8 (35.1-43.9) fL Plt Count 294 (163-337) K/mm3 MPV 9.0 L (9.4-12.3) fl Neutrophils % (Manual) 76 H (40-60) % Band Neutrophils % 0 (0-10) % Lymphocytes % (Manual) 18 L (20-40) % Atypical Lymphs % 0 % Monocytes % (Manual) 2 (2-10) % Eosinophils % (Manual) 4 (0.8-7.0) % Basophils % (Manual) 0 L (0.2-1.2) Platelet Estimate Adequate RBC Morph Comment Normal ESR (0-15) mm/hr PT 10.1 (9.7-12.0) SECONDS INR < 0.93 APTT 26 (22-31) SECONDS Sodium 139 (136-145) mEq/L Potassium 4.1 (3.5-5.1) mEq/L Chloride 103 (98-107) mEq/L Carbon Dioxide 28 (21-32) mEq/L Anion Gap 12.1 (5-15) BUN 16 (7-18) mg/dL Creatinine 1.0 (0.7-1.3) mg/dL Est Cr Clr Drug Dosing 105.42 mL/min Estimated GFR (MDRD) > 60 (>60) mL/min BUN/Creatinine Ratio 16.0 (14-18) Glucose 120 H (74-106) mg/dL POC Glucose (70-105) mg/dL Calcium 8.8 (8.5-10.1) mg/dL Magnesium 2.0 (1.8-2.4) mg/dl Total Bilirubin 0.3 (0.2-1.0) mg/dL AST 33 (15-37) U/L ALT 61 (16-63) U/L Alkaline Phosphatase 97 (46-116) U/L C-Reactive Protein 3.9 H* (<1.0) mg/dL NT-Pro-B Natriuret Pep (0-125) pg/mL Total Protein 8.1 (6.4-8.2) g/dl Albumin 3.2 L (3.4-5.0) g/dl Globulin 4.9 gm/dL Albumin/Globulin Ratio 0.7 L (1-2) Urine Color (Yellow) Urine Appearance (Clear) Urine pH (5.0-8.0) Ur Specific [place] (1.005-1.030) Urine Protein (Negative) Urine Glucose (UA) (Negative) Urine Ketones (Negative) Urine Occult Blood (Negative) Urine Nitrite (Negative) Urine Bilirubin (Negative) Urine Urobilinogen (0.2-1.0) Ur Leukocyte Esterase (Negative) Urine RBC (0-5) /hpf Urine WBC (0-5) /hpf Ur Epithelial Cells (0-5) /hpf Urine Bacteria (FEW) /hpf Urine Mucus (FEW) /hpf Urine Opiates Screen (PYWHBM=715) Ur Buprenorphine Scrn (CUTOFF=10) Ur Oxycodone Screen (DWZ4AM=649) Urine Methadone Screen (NUO7QP=783) Ur Propoxyphene Screen (MYLKVP=859) Ur Barbiturates Screen (YRXYKN=050) Ur Tricyclics Screen (YDVQCN=181) Ur Phencyclidine Scrn (CUTOFF=25) Ur Amphetamine Screen (PLELAH=345) U Methamphetamines Scrn (XKEGXK=386) U Benzodiazepines Scrn (VQCTYP=104) U Cocaine Metab Screen (LLCPTX=798) U Marijuana (THC) Screen (CUTOFF=50) Hepatitis C Antibody (NEGATIVE) HIV-1 Ab Rapid Screen (NEGATIVE) 11/28/18 11/28/18 11/28/18 Range/Units 12:03 12:03 12:03 WBC (4.23-9.07) K/mm3 RBC (4.63-6.08) M/mm3 Hgb (13.7-17.5) gm/L Hct (40.1-51.0) % MCV (79.0-92.2) fl MCH (25.7-32.2) pg MCHC (32.2-35.5) g/dl RDW Std Deviation (35.1-43.9) fL Plt Count (163-337) K/mm3 MPV (9.4-12.3) fl Neutrophils % (Manual) (40-60) % Band Neutrophils % (0-10) % Lymphocytes % (Manual) (20-40) % Atypical Lymphs % % Monocytes % (Manual) (2-10) % Eosinophils % (Manual) (0.8-7.0) % Basophils % (Manual) (0.2-1.2) Platelet Estimate RBC Morph Comment ESR 48 H (0-15) mm/hr PT (9.7-12.0) SECONDS INR APTT (22-31) SECONDS Sodium (136-145) mEq/L Potassium (3.5-5.1) mEq/L Chloride (98-107) mEq/L Carbon Dioxide (21-32) mEq/L Anion Gap (5-15) BUN (7-18) mg/dL Creatinine (0.7-1.3) mg/dL Est Cr Clr Drug Dosing mL/min Estimated GFR (MDRD) (>60) mL/min BUN/Creatinine Ratio (14-18) Glucose (74-106) mg/dL POC Glucose (70-105) mg/dL Calcium (8.5-10.1) mg/dL Magnesium (1.8-2.4) mg/dl Total Bilirubin (0.2-1.0) mg/dL AST (15-37) U/L ALT (16-63) U/L Alkaline Phosphatase (46-116) U/L C-Reactive Protein (<1.0) mg/dL NT-Pro-B Natriuret Pep 53 (0-125) pg/mL Total Protein (6.4-8.2) g/dl Albumin (3.4-5.0) g/dl Globulin gm/dL Albumin/Globulin Ratio (1-2) Urine Color (Yellow) Urine Appearance (Clear) Urine pH (5.0-8.0) Ur Specific [place] (1.005-1.030) Urine Protein (Negative) Urine Glucose (UA) (Negative) Urine Ketones (Negative) Urine Occult Blood (Negative) Urine Nitrite (Negative) Urine Bilirubin (Negative) Urine Urobilinogen (0.2-1.0) Ur Leukocyte Esterase (Negative) Urine RBC (0-5) /hpf Urine WBC (0-5) /hpf Ur Epithelial Cells (0-5) /hpf Urine Bacteria (FEW) /hpf Urine Mucus (FEW) /hpf Urine Opiates Screen (VSJNYC=236) Ur Buprenorphine Scrn (CUTOFF=10) Ur Oxycodone Screen (AME2BA=335) Urine Methadone Screen (RYJ5WP=608) Ur Propoxyphene Screen (FFXNBM=632) Ur Barbiturates Screen (AIHINE=574) Ur Tricyclics Screen (QWILMX=808) Ur Phencyclidine Scrn (CUTOFF=25) Ur Amphetamine Screen (ZYYQCV=587) U Methamphetamines Scrn (DRHMIV=096) U Benzodiazepines Scrn (LBDMAQ=461) U Cocaine Metab Screen (UATOOO=828) U Marijuana (THC) Screen (CUTOFF=50) Hepatitis C Antibody Positive H (NEGATIVE) HIV-1 Ab Rapid Screen Negative (NEGATIVE) Meds: Medications Generic Name Dose Route Start Last Admin Trade Name Freq PRN Reason Stop Dose Admin Sodium Chloride 10 ml 11/28/18 10:48 11/28/18 12:14 Saline Flush FLUSH 10 ml ASDIRECTED PRN Administration Keep Vein Open Discontinued Medications Generic Name Dose Route Start Last Admin Trade Name Freq PRN Reason Stop Dose Admin Acetaminophen 975 mg 11/28/18 11:09 11/28/18 12:12 Tylenol PO 11/28/18 11:10 975 mg ONETIME ONE Administration Fentanyl 100 mcg 11/28/18 13:37 11/28/18 14:28 Sublimaze IVPUSH 11/28/18 13:38 100 mcg ONETIME ONE Administration Furosemide 40 mg 11/28/18 10:52 11/28/18 12:10 Lasix IVPUSH 11/28/18 10:53 40 mg NOW ONE Administration Clindamycin Phosphate 900 mg/ 50 mls @ 100 mls/hr 11/28/18 10:49 11/28/18 12: 12 Premix IV 11/28/18 11:18 100 mls/hr ONETIME ONE Administration Vancomycin HCl 2 gm/ Sodium 250 mls @ 250 mls/hr 11/28/18 10:51 11/28/18 12: 40 Chloride IV 11/28/18 11:50 Not Given ONETIME ONE Vancomycin HCl 2 gm/ Sodium 500 mls @ 250 mls/hr 11/28/18 12:30 11/28/18 13: 00 Chloride IV 11/28/18 14:29 250 mls/hr ONETIME ONE Administration Lidocaine/Epinephrine Confirm 11/28/18 14:08 11/28/18 14:15 Xylocaine 1% With Epinephrine 1:100,000 Administered 11/28/18 14:09 20 ml Dose Administration 20 ml .ROUTE .STK-MED ONE Lidocaine/Epinephrine 20 ml 11/28/18 14:37 11/28/18 14:37 Xylocaine 1% With Epinephrine 1:100,000 INJECT 11/28/18 14:38 Not Given ONETIME ONE Midazolam HCl 5 mg 11/28/18 13:37 11/28/18 14:28 Versed 1 Mg/Ml IVPUSH 11/28/18 13:38 Not Given ONETIME ONE Midazolam HCl Confirm 11/28/18 13:43 11/28/18 14:27 Versed 1 Mg/Ml Administered 11/28/18 13:44 4 mg Dose Administration 4 mg .ROUTE .STK-MED ONE - Radiology Interpretation Free Text/Narrative:: 47-year-old male presents to the ED for the second time in 2 days. He was advised to stay in the hospital last time 2 days ago but could not because of need to appear in court etc. He states he's going on now got his home affairs in order. His blood cultures came back positive growing out gram-positive cocci. He was found this morning by Dr. Oreilly and advised to return to the hospital. He states his legs are no better in fact they are little bit worse over the last 2 days. Apparently he was given a dose of intravenous antibiotic swelling was seen last not sent home on any oral meds. He has had fever clinically and had some chills and rigors. He has gross edema of both lower extremities up to the knees bilaterally. I suspect he has COPD with cor pulmonale from [id number] history of smoking. Plan: Peripheral IV lock. Since we know that he is growing out gram-positive cocci he will be treated with antibiotics immediately. Given clindamycin 900 mg IV and vancomycin 2 g IV. Given 40 mg of Lasix IV. He will have Doppler ultrasound of both look 70s to make sure there is no DVT. Very tense with fluid. Suspect right-sided heart failure to cause severe dependent edema. Tylenol 975 mg by mouth for fever relief. - Re-Assessments/Exams Free Text/Narrative Re-Assessment/Exam: 11/28/18 13:40 As reveal a normal white count at 9.03. Differential is pending. Hemoglobin is 13.6 with hematocrit of 39.1. Platelet count 294,000. Sodium 139 with potassium of 4.1. Chloride is 103 with a bicarbonate 28. And a gap is 12.1. BUNs 16 with a creatinine of 1.0. Estimated GFR is greater than 60. Glucose is 120. Calcium was 8.8. Magnesium is 2.0. Liver function is normal. C- reactive protein is elevated at 3.9. Total protein is 8.1 with an albumin fraction of 3.2. Urinalysis is normal. Urine drug screen is presumptively positive for buprenorphine and amphetamine/methamphetamines. He is hepatitis C antibody positive. HIV negative. Sedimentation rate is reported out at 48. BNP is 53. 11/28/18 14:34 Right subclavian line placed for IV medications as he is no IV access other than a small 22-gauge which were able to get the MOTHER'S HELPER to start. Likely need IV antibiotic for 3 days to bring the cellulitis under control and his lower extremities and then be converted to orals. Procedure was carried out under conscious sedation using 6 mg of Versed in total and 100 g of fentanyl. All ports were aspirated and flushed. Chest x-ray reveals a central line to be in adequate position in the superior vena cava. No pneumothorax. There does appear to be mild vascular congestion pattern. As discussed with Dr. Rodrigez global implementation manager hospitalist and he will see the patient in the ED as the patient left the hospital AMA 2 days ago. Departure - Departure Time of Disposition: 15:22 Disposition: Admitted As Inpatient 68 Condition: Fair Clinical Impression: Cellulitis of both lower extremities, Methamphetamine addiction, Hepatitis C antibody test positive - Discharge Information *PRESCRIPTION DRUG MONITORING PROGRAM REVIEWED*: Not Applicable *COPY OF PRESCRIPTION DRUG MONITORING REPORT IN PATIENT MATTHEW: Not Applicable Instructions: Cellulitis, Adult Referrals: PCP,None [Primary Care Provider] - Forms: ED Department Discharge - My Orders Last 24 Hours: My Active Orders 11/28/18 10:10 EKG 12 Lead [EKG Documentation Completion] [RC] STAT 11/28/18 10:48 Blood Glucose Check, Bedside [RC] ONETIME EKG Documentation Completion [RC] STAT Sodium Chloride 0.9% [Saline Flush] 10 ml FLUSH ASDIRECTED PRN 11/28/18 10:49 Peripheral IV Care [RC] . DIRECTED Peripheral IV Insertion Adult [OM.PC] Stat 11/28/18 15:15 Admission Status [Patient Status] [ADT] Routine - Assessment/Plan Last 24 Hours: My Active Orders 11/28/18 10:10 EKG 12 Lead [EKG Documentation Completion] [RC] STAT 11/28/18 10:48 Blood Glucose Check, Bedside [RC] ONETIME EKG Documentation Completion [RC] STAT Sodium Chloride 0.9% [Saline Flush] 10 ml FLUSH ASDIRECTED PRN 11/28/18 10:49 Peripheral IV Care [RC] . DIRECTED Peripheral IV Insertion Adult [OM.PC] Stat 11/28/18 15:15 Admission Status [Patient Status] [ADT] Routine
[2018-11-28] MEDS ORDERED: Acetaminophen 325 MG Tab PO ONE (11:09)
--- NOTE | 2018-11-28 12:10 | PCM.SN ---
- Free Text/Narrative Note: 11/28/18 [id number] Iv started 22 guage right forearm times 2 attempts. Labwork drawn. Kel
--- NOTE | 2018-11-28 12:23 | US ---
Bilateral lower extremity deep venous ultrasound: Duplex and color flow imaging was obtained of the right and left common femoral, proximal greater saphenous, superficial femoral, popliteal, posterior tibial and peroneal veins. Comparison: No prior venous imaging. Peroneal veins not well seen on both sides. Other veins show normal phasic flow, augmentation and compression. There is subcutaneous edema being seen within both lower extremities. Impression: 1. Subcutaneous edema within both lower extremities. 2. Poorly seen peroneal veins. 3. No evidence of deep venous thrombosis within either the right or left lower extremities. Diagnostic code #2
[2018-11-28] MEDS ORDERED: Vancomycin 2 GM in Sodium Chloride 0.9% 500 ML IV ONE (12:30)
[2018-11-28] MEDS ORDERED: fentaNYL 100 MCG/2 ML SDV IVPUSH ONE (13:37)
[2018-11-28] MEDS ORDERED: Midazolam 1 MG/ML 5 ML SDV IVPUSH ONE (13:37)
[2018-11-28] MEDS ORDERED: Midazolam 1 MG/ML 2 ML SDV ONE (13:43)
[2018-11-28] MEDS ORDERED: Lidocaine 1% with EPINEPHrine 1:100,000 20 ML MDV ONE (14:08)
--- NOTE | 2018-11-28 14:15 | CR ---
Chest: Portable view of the chest was obtained. Comparison: Chest x-ray of 11/26/18. Previous central line has been removed. Heart size is normal. Tortuous thoracic aorta is seen. Lungs are clear with no acute parenchymal change. Bony structure shows mild scoliosis within the spine. Impression: 1. Previous central line has been removed. 2. Nothing acute is seen on portable chest x-ray. Diagnostic code #2
[2018-11-28] MEDS ORDERED: Lidocaine 1% with EPINEPHrine 1:100,000 20 ML MDV INJECT ONE (14:37)
--- NOTE | 2018-11-28 15:02 | CR ---
Chest: Portable view of the chest was obtained. Comparison: Prior chest x-ray of 11/28/18. Right-sided PICC line is seen. Tip lies in the area of the superior vena cava which is satisfactory in position. Lungs are clear with no acute parenchymal change. Heart size is within normal limits for portable technique. Tortuous thoracic aorta is seen. Bony structures are grossly intact. Impression: 1. Satisfactory position of PICC line. 2. Nothing acute is otherwise seen on portable chest x-ray. Diagnostic code #2
--- NOTE | 2018-11-28 15:34 | PCM.HP.2 ---
<Oz Albarado - Last Filed: 11/29/18 11:41> H&P History of Present Illness - General Date of Service: 11/28/18 Admit Problem/Dx: Admission Diagnosis/Problem Admission Diagnosis/Problem Cellulitis of both lower extremities Source of Information: Patient History Limitations: Reports: Altered Mental Status - History of Present Illness Initial Comments - Free Text/Narative: This is a 47 yo white male with no significant past medical hx expt for IVD and hx/o heroin and marijuana use who comes in for evaluation of 4-5 day hx/o increasing leg edema associated with redness and some discomfort. He is not known diabetic and no hx/o renal or hepatic disease. he reports a similar episode a few years ago and resolved after treatment. He denies any signs of systemic infection. He was admitted 11/27/18 for the same problem but left AMA. His initial work up in ED shows a CBC remarkable for Hgb 13.6, Hct of 39.1, Neutrophils 76%, Lymphocytes 18%, glucose 120, CRP 3.9, ESR 48. Patient is coming in primarily for bilateral lower extremity cellulitis. Bilateral Lower Leg Pain Score (Numeric/FACES): 8 - Related Data Allergies/Adverse Reactions: Allergies Allergy/AdvReac Type Severity Reaction Status Date / Time No Known Allergies Allergy Verified 11/28/18 16:42 Home Medications: Home Meds . [No Known Home Meds] 11/26/18 [History] Past Medical History HEENT History: Reports: Impaired Vision Cardiovascular History: Reports: None Respiratory History: Reports: COPD (Not diagnosed. [id number] history of cigarette smoking however. Suspect cor pulmonale. Severe lower extremity edema) Gastrointestinal History: Reports: None Genitourinary History: Reports: None Musculoskeletal History: Reports: Fracture Other Musculoskeletal History: R collar bone, right femur left ankle Neurological History: Reports: None Psychiatric History: Reports: Addiction Endocrine/Metabolic History: Reports: None Hematologic History: Reports: None Immunologic History: Reports: None Oncologic (Cancer) History: Reports: None Dermatologic History: Reports: None - Infectious Disease History Infectious Disease History: Reports: Hepatitis C (Hepatitis C positive when tested today November 28) - Past Surgical History HEENT Surgical History: Reports: Oral Surgery - History Comment History Comment: h/o heroin/opioid addition, 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 Social & Family History - Family History Family Medical History: Noncontributory Endocrine/Metabolic: Reports: Diabetes, type II Oncologic: Reports: Brain, Lung - Tobacco Use Smoking Status *Q: Current Every Day Smoker Years of Tobacco use: 20 Packs/Tins Daily: 1 - Caffeine Use Caffeine Use: Reports: Coffee, Tea - Recreational Drug Use Recreational Drug Use: Yes Drug Use in Last 12 Months: Yes Recreational Drug Type: Reports: Heroin, Methamphetamine Recreational Drug Use Frequency: Weekly - Living Situation & Occupation Living situation: Reports: with Significant Other (Has girlfiend) H&P Review of Systems - Review of Systems: Review Of Systems: Unable To Obtain (Patient heavily sedated in ER.) Exam - Exam Exam: See Below - Vital Signs Vital Signs: Last Vital Signs Temp 97.8 F 11/28/18 10:08 Pulse 115 H 11/28/18 10:08 Resp 16 11/28/18 10:08 BP 148/90 H 11/28/18 10:08 Pulse Ox 97 11/28/18 10:08 Weight: 108.862 kg - Exam Quality Assessment: Supplemental Oxygen General: Sedated HEENT: Conjunctiva Clear, Mucosa Moist & [place], Normal Nasal Septum. No: Scleral Icterus Neck: Supple, Trachea Midline. No: Lymphadenopathy, Carotid Bruit, JVD Lungs: Clear to Auscultation, Normal Respiratory Effort. No: Crackles, Rales, Rhonchi, Wheezing Cardiovascular: Regular Rate, Regular Rhythm. No: Systolic Murmur, Diastolic Murmur, Rubs, Gallop/S3, Gallop/S4 GI/Abdominal Exam: Normal Bowel Sounds, Soft, Non-Tender, No Organomegaly, No Distention (Male) Exam: Deferred Rectal (Males) Exam: Deferred Extremities: Pedal Edema, Joint Swelling, Increased Warmth, Redness Skin: Warm, Dry, Intact Neurological: Other (Unable to obtain) Neuro Extensive - Mental Status: Other (Unable to obtain) Neuro Extensive - Motor, Sensory, Reflexes: Other (Unable to obtain) Psychiatric: Other (Unable to obtain) Physical Exam Comments:: Patient heavily sedated in ER. Unable to obtain complete physical exam including neurological exam. - Patient Data Lab Results Last 24 hrs: Laboratory Results - last 24 hr 11/28/18 11/28/18 11/28/18 Range/Units 11:08 11:15 11:15 WBC (4.23-9.07) K/mm3 RBC (4.63-6.08) M/mm3 Hgb (13.7-17.5) gm/L Hct (40.1-51.0) % MCV (79.0-92.2) fl MCH (25.7-32.2) pg MCHC (32.2-35.5) g/dl RDW Std Deviation (35.1-43.9) fL Plt Count (163-337) K/mm3 MPV (9.4-12.3) fl Neutrophils % (Manual) (40-60) % Band Neutrophils % (0-10) % Lymphocytes % (Manual) (20-40) % Atypical Lymphs % % Monocytes % (Manual) (2-10) % Eosinophils % (Manual) (0.8-7.0) % Basophils % (Manual) (0.2-1.2) Platelet Estimate RBC Morph Comment ESR (0-15) mm/hr PT (9.7-12.0) SECONDS INR APTT (22-31) SECONDS Sodium (136-145) mEq/L Potassium (3.5-5.1) mEq/L Chloride (98-107) mEq/L Carbon Dioxide (21-32) mEq/L Anion Gap (5-15) BUN (7-18) mg/dL Creatinine (0.7-1.3) mg/dL Est Cr Clr Drug Dosing mL/min Estimated GFR (MDRD) (>60) mL/min BUN/Creatinine Ratio (14-18) Glucose (74-106) mg/dL POC Glucose 107 H (70-105) mg/dL Calcium (8.5-10.1) mg/dL Magnesium (1.8-2.4) mg/dl Total Bilirubin (0.2-1.0) mg/dL AST (15-37) U/L ALT (16-63) U/L Alkaline Phosphatase (46-116) U/L C-Reactive Protein (<1.0) mg/dL NT-Pro-B Natriuret Pep (0-125) pg/mL Total Protein (6.4-8.2) g/dl Albumin (3.4-5.0) g/dl Globulin gm/dL Albumin/Globulin Ratio (1-2) Urine Color Yellow (Yellow) Urine Appearance Clear (Clear) Urine pH 6.0 (5.0-8.0) Ur Specific [place] > or = 1.030 (1.005-1.030) Urine Protein Negative (Negative) Urine Glucose (UA) Negative (Negative) Urine Ketones Negative (Negative) Urine Occult Blood Negative (Negative) Urine Nitrite Negative (Negative) Urine Bilirubin Negative (Negative) Urine Urobilinogen 0.2 (0.2-1.0) Ur Leukocyte Esterase Negative (Negative) Urine RBC 0-5 (0-5) /hpf Urine WBC 0-5 (0-5) /hpf Ur Epithelial Cells Not seen (0-5) /hpf Urine Bacteria Not seen (FEW) /hpf Urine Mucus Few (FEW) /hpf Urine Opiates Screen Negative (FEXPEW=658) Ur Buprenorphine Scrn Presumptive positive (CUTOFF=10) Ur Oxycodone Screen Negative (BVX3KS=423) Urine Methadone Screen Negative (TAD3OW=108) Ur Propoxyphene Screen Negative (FCVLTA=147) Ur Barbiturates Screen Negative (ERWGFA=971) Ur Tricyclics Screen Negative (XBWQKB=030) Ur Phencyclidine Scrn Negative (CUTOFF=25) Ur Amphetamine Screen Presumptive positive H (KJLCDH=454) U Methamphetamines Scrn Presumptive positive H (UYRRZT=254) U Benzodiazepines Scrn Negative (BKEOIA=867) U Cocaine Metab Screen Negative (EQXBNT=019) U Marijuana (THC) Screen Negative (CUTOFF=50) Hepatitis C Antibody (NEGATIVE) HIV-1 Ab Rapid Screen (NEGATIVE) 11/28/18 11/28/18 11/28/18 Range/Units 12:03 12:03 12:03 WBC 9.03 (4.23-9.07) K/mm3 RBC 4.71 (4.63-6.08) M/mm3 Hgb 13.6 L (13.7-17.5) gm/L Hct 39.1 L (40.1-51.0) % MCV 83.0 (79.0-92.2) fl MCH 28.9 (25.7-32.2) pg MCHC 34.8 (32.2-35.5) g/dl RDW Std Deviation 38.8 (35.1-43.9) fL Plt Count 294 (163-337) K/mm3 MPV 9.0 L (9.4-12.3) fl Neutrophils % (Manual) 76 H (40-60) % Band Neutrophils % 0 (0-10) % Lymphocytes % (Manual) 18 L (20-40) % Atypical Lymphs % 0 % Monocytes % (Manual) 2 (2-10) % Eosinophils % (Manual) 4 (0.8-7.0) % Basophils % (Manual) 0 L (0.2-1.2) Platelet Estimate Adequate RBC Morph Comment Normal ESR (0-15) mm/hr PT 10.1 (9.7-12.0) SECONDS INR < 0.93 APTT 26 (22-31) SECONDS Sodium 139 (136-145) mEq/L Potassium 4.1 (3.5-5.1) mEq/L Chloride 103 (98-107) mEq/L Carbon Dioxide 28 (21-32) mEq/L Anion Gap 12.1 (5-15) BUN 16 (7-18) mg/dL Creatinine 1.0 (0.7-1.3) mg/dL Est Cr Clr Drug Dosing 105.42 mL/min Estimated GFR (MDRD) > 60 (>60) mL/min BUN/Creatinine Ratio 16.0 (14-18) Glucose 120 H (74-106) mg/dL POC Glucose (70-105) mg/dL Calcium 8.8 (8.5-10.1) mg/dL Magnesium 2.0 (1.8-2.4) mg/dl Total Bilirubin 0.3 (0.2-1.0) mg/dL AST 33 (15-37) U/L ALT 61 (16-63) U/L Alkaline Phosphatase 97 (46-116) U/L C-Reactive Protein 3.9 H* (<1.0) mg/dL NT-Pro-B Natriuret Pep (0-125) pg/mL Total Protein 8.1 (6.4-8.2) g/dl Albumin 3.2 L (3.4-5.0) g/dl Globulin 4.9 gm/dL Albumin/Globulin Ratio 0.7 L (1-2) Urine Color (Yellow) Urine Appearance (Clear) Urine pH (5.0-8.0) Ur Specific [place] (1.005-1.030) Urine Protein (Negative) Urine Glucose (UA) (Negative) Urine Ketones (Negative) Urine Occult Blood (Negative) Urine Nitrite (Negative) Urine Bilirubin (Negative) Urine Urobilinogen (0.2-1.0) Ur Leukocyte Esterase (Negative) Urine RBC (0-5) /hpf Urine WBC (0-5) /hpf Ur Epithelial Cells (0-5) /hpf Urine Bacteria (FEW) /hpf Urine Mucus (FEW) /hpf Urine Opiates Screen (GTFSOA=686) Ur Buprenorphine Scrn (CUTOFF=10) Ur Oxycodone Screen (DEC0FT=560) Urine Methadone Screen (YHM4PR=704) Ur Propoxyphene Screen (TUMGRT=328) Ur Barbiturates Screen (HNCLTI=477) Ur Tricyclics Screen (ZSWHWE=343) Ur Phencyclidine Scrn (CUTOFF=25) Ur Amphetamine Screen (ECWTAO=422) U Methamphetamines Scrn (HAQNEF=490) U Benzodiazepines Scrn (XASYRX=891) U Cocaine Metab Screen (QQIIZP=694) U Marijuana (THC) Screen (CUTOFF=50) Hepatitis C Antibody (NEGATIVE) HIV-1 Ab Rapid Screen (NEGATIVE) 11/28/18 11/28/18 11/28/18 Range/Units 12:03 12:03 12:03 WBC (4.23-9.07) K/mm3 RBC (4.63-6.08) M/mm3 Hgb (13.7-17.5) gm/L Hct (40.1-51.0) % MCV (79.0-92.2) fl MCH (25.7-32.2) pg MCHC (32.2-35.5) g/dl RDW Std Deviation (35.1-43.9) fL Plt Count (163-337) K/mm3 MPV (9.4-12.3) fl Neutrophils % (Manual) (40-60) % Band Neutrophils % (0-10) % Lymphocytes % (Manual) (20-40) % Atypical Lymphs % % Monocytes % (Manual) (2-10) % Eosinophils % (Manual) (0.8-7.0) % Basophils % (Manual) (0.2-1.2) Platelet Estimate RBC Morph Comment ESR 48 H (0-15) mm/hr PT (9.7-12.0) SECONDS INR APTT (22-31) SECONDS Sodium (136-145) mEq/L Potassium (3.5-5.1) mEq/L Chloride (98-107) mEq/L Carbon Dioxide (21-32) mEq/L Anion Gap (5-15) BUN (7-18) mg/dL Creatinine (0.7-1.3) mg/dL Est Cr Clr Drug Dosing mL/min Estimated GFR (MDRD) (>60) mL/min BUN/Creatinine Ratio (14-18) Glucose (74-106) mg/dL POC Glucose (70-105) mg/dL Calcium (8.5-10.1) mg/dL Magnesium (1.8-2.4) mg/dl Total Bilirubin (0.2-1.0) mg/dL AST (15-37) U/L ALT (16-63) U/L Alkaline Phosphatase (46-116) U/L C-Reactive Protein (<1.0) mg/dL NT-Pro-B Natriuret Pep 53 (0-125) pg/mL Total Protein (6.4-8.2) g/dl Albumin (3.4-5.0) g/dl Globulin gm/dL Albumin/Globulin Ratio (1-2) Urine Color (Yellow) Urine Appearance (Clear) Urine pH (5.0-8.0) Ur Specific [place] (1.005-1.030) Urine Protein (Negative) Urine Glucose (UA) (Negative) Urine Ketones (Negative) Urine Occult Blood (Negative) Urine Nitrite (Negative) Urine Bilirubin (Negative) Urine Urobilinogen (0.2-1.0) Ur Leukocyte Esterase (Negative) Urine RBC (0-5) /hpf Urine WBC (0-5) /hpf Ur Epithelial Cells (0-5) /hpf Urine Bacteria (FEW) /hpf Urine Mucus (FEW) /hpf Urine Opiates Screen (LMCEEH=067) Ur Buprenorphine Scrn (CUTOFF=10) Ur Oxycodone Screen (JRJ5UF=095) Urine Methadone Screen (FSZ4QG=139) Ur Propoxyphene Screen (CGOHZM=837) Ur Barbiturates Screen (HAMGMG=594) Ur Tricyclics Screen (IZVFZO=550) Ur Phencyclidine Scrn (CUTOFF=25) Ur Amphetamine Screen (KCYMFG=754) U Methamphetamines Scrn (XBJWYG=926) U Benzodiazepines Scrn (BQSBPP=828) U Cocaine Metab Screen (EYBAVD=501) U Marijuana (THC) Screen (CUTOFF=50) Hepatitis C Antibody Positive H (NEGATIVE) HIV-1 Ab Rapid Screen Negative (NEGATIVE) Result Diagrams: 11/29/18 04:55 11/29/18 04:55 Problem List Initiated/Reviewed/Updated: Yes Orders Last 24hrs: Active Orders 24 hr Category Date Time Status Admission Status [Patient Status] [ADT] Routine ADT 11/28/18 15:15 Active Blood Glucose Check, Bedside [RC] ONETIME Care 11/28/18 10:48 Active EKG 12 Lead [EKG Documentation Completion] [RC] STAT Care 11/28/18 10:10 Inactive EKG Documentation Completion [RC] STAT Care 11/28/18 10:48 Active Peripheral IV Care [RC] . DIRECTED Care 11/28/18 10:49 Active Sodium Chloride 0.9% [Saline Flush] Med 11/28/18 10:48 Active 10 ml FLUSH ASDIRECTED PRN Peripheral IV Insertion Adult [OM.PC] Stat Oth 11/28/18 10:49 Ordered Medication Orders Sodium Chloride (Saline Flush) 10 ml FLUSH ASDIRECTED PRN PRN Reason: Keep Vein Open Last Admin: 11/28/18 12:14 Dose: 10 ml Assessment/Plan Comment:: Assessment: Acute: Bilateral LE cellulitis with significant edema * no diabetes or renal disease * 4-5 days now: red, edema and tightness * R/o DVT with d-dimer and duplex U/S (thrombophlebitis) * IV vancomycin for pharmacy to dose * PRN diuretic Overweight/obesity class I * BMI of 31.7 * Dietary consult for weight management Inadequate IV access * Central line placed * Hx/o IV drug abuse Chronic: Hx/o IVD, heroin and marijuana use Plan: Admit to [facility] Routine AM labs Sepsis work up Regular diet D-Dimer A1C, thyroid panel and Vit D level Activity as tolerated DVT/GI prophylaxis PT/OT to assess and treat SW/CM for d/c planning Code status:1 prognosis is guarded-serious Additional orders as above. Patient examined in concert with medical student. Above assessment and plan discussed with and agreed upon by me. <Marielos Rodrigez T - Last Filed: 11/30/18 20:14> H&P History of Present Illness - General Admit Problem/Dx: Admission Diagnosis/Problem Admission Diagnosis/Problem Cellulitis of both lower extremities Exam - Exam Exam: See Below - Vital Signs Vital Signs: Last Vital Signs Temp 37.1 C 11/30/18 16:49 Pulse 89 11/30/18 16:49 Resp 20 11/30/18 16:49 BP 141/78 H 11/30/18 16:49 Pulse Ox 95 11/30/18 16:49 - Exam HEENT: Pupils Equal, Pupils Reactive Extremities: Other (bag scar on both deltoids) Peripheral Pulses: 2+: Posterior Tibial (L), Posterior Tibial (R), Dorsalis Pedis (L), Dorsalis Pedis (R) Neurological: Other (responsive pupils) Neuro Extensive - Mental Status: Other (Unable to obtain/Difficult to arouse) Neuro Extensive - Motor, Sensory, Reflexes: Other (Unable to obtain/not appropriate) Physical Exam Comments:: Physical limited due to Sedation. He received sedative/narcotics for due central line placement - Patient Data Lab Results Last 24 hrs: Laboratory Results - last 24 hr 11/30/18 11/30/18 11/30/18 Range/Units 04:45 04:45 11:11 WBC 6.70 (4.23-9.07) K/mm3 RBC 4.52 L (4.63-6.08) M/mm3 Hgb 12.9 L (13.7-17.5) gm/L Hct 38.2 L (40.1-51.0) % MCV 84.5 (79.0-92.2) fl MCH 28.5 (25.7-32.2) pg MCHC 33.8 (32.2-35.5) g/dl RDW Std Deviation 39.4 (35.1-43.9) fL Plt Count 293 (163-337) K/mm3 MPV 8.9 L (9.4-12.3) fl Neut % (Auto) 50.6 (34.0-67.9) % Lymph % (Auto) 31.8 (21.8-53.1) % [place] % (Auto) 11.8 (5.3-12.2) % Eos % (Auto) 4.8 (0.8-7.0) Baso % (Auto) 0.6 (0.1-1.2) % Neut # (Auto) 3.39 (1.78-5.38) K/mm3 Lymph # (Auto) 2.13 (1.32-3.57) K/mm3 [place] # (Auto) 0.79 (0.30-0.82) K/mm3 Eos # (Auto) 0.32 (0.04-0.54) K/mm3 Baso # (Auto) 0.04 (0.01-0.08) K/mm3 Sodium 140 (136-145) mEq/L Potassium 4.0 (3.5-5.1) mEq/L Chloride 104 (98-107) mEq/L Carbon Dioxide 28 (21-32) mEq/L Anion Gap 12.0 (5-15) BUN 10 (7-18) mg/dL Creatinine 1.1 (0.7-1.3) mg/dL Est Cr Clr Drug Dosing 95.84 mL/min Estimated GFR (MDRD) > 60 (>60) mL/min BUN/Creatinine Ratio 9.1 L (14-18) Glucose 103 (74-106) mg/dL Calcium 8.3 L (8.5-10.1) mg/dL Magnesium 1.9 (1.8-2.4) mg/dl C-Reactive Protein 1.9 H* (<1.0) mg/dL Vancomycin Trough 16.2 (10.0-20.0) Result Diagrams: 11/30/18 04:45 11/30/18 04:45 [place] Results Last 24 hrs: Microbiology 11/28/18 17:35 Aerobic Blood Culture - Preliminary Blood - Venous - Lab Draw NO GROWTH AFTER 2 DAYS Anaerobic Blood Culture - Preliminary NO GROWTH AFTER 2 DAYS 11/28/18 16:57 Aerobic Blood Culture - Preliminary Blood - Venous NO GROWTH AFTER 2 DAYS Anaerobic Blood Culture - Preliminary NO GROWTH AFTER 2 DAYS Problem List Initiated/Reviewed/Updated: Yes Orders Last 24hrs: Active Orders 24 hr Category Date Time Status A1C [GLYCOSYLATED HEMOGLOBIN,HGBA1C] [CHEM] AM Lab 12/01/18 05:11 Ordered BASIC METABOLIC PANEL,BMP [CHEM] AM Lab 12/01/18 05:11 Ordered BASIC METABOLIC PANEL,BMP [CHEM] AM Lab 12/02/18 05:11 Ordered BASIC METABOLIC PANEL,BMP [CHEM] AM Lab 12/03/18 05:11 Ordered C-REACTIVE PROTEIN [CHEM] AM Lab 12/01/18 05:11 Ordered C-REACTIVE PROTEIN [CHEM] AM Lab 12/02/18 05:11 Ordered C-REACTIVE PROTEIN [CHEM] AM Lab 12/03/18 05:11 Ordered CBC WITH AUTO DIFF [HEME] AM Lab 12/01/18 05:11 Ordered CBC WITH AUTO DIFF [HEME] AM Lab 12/02/18 05:11 Ordered CBC WITH AUTO DIFF [HEME] AM Lab 12/03/18 05:11 Ordered MAGNESIUM [CHEM] AM Lab 12/01/18 05:11 Ordered MAGNESIUM [CHEM] AM Lab 12/02/18 05:11 Ordered MAGNESIUM [CHEM] AM Lab 12/03/18 05:11 Ordered TSH [CHEM] AM Lab 12/01/18 05:11 Ordered VANCOMYCIN TROUGH [CHEM] Timed Lab 12/02/18 04:30 Ordered VITAMIN D,25-HYDROXY [CHEM] AM Lab 12/01/18 05:11 Ordered Metoprolol Tartrate [Lopressor] Med 11/30/18 15:54 Active 5 mg IVPUSH Q4H PRN Pantoprazole [ProTONIX] Med 11/29/18 21:00 Active 40 mg PO Q12H Remove Patch Med 11/30/18 15:30 Active 1 ea TRDERM Q24H Vancomycin 1 gm Med 11/30/18 13:00 Active Sodium Chloride 0.9% [Normal Saline] 250 ml IV Q8H hydrALAZINE [Apresoline] Med 11/30/18 15:54 Active 20 mg IVPUSH Q4H PRN Medication Orders Acetaminophen (Tylenol) 650 mg PO Q4H PRN PRN Reason: Pain (Mild 1-3)/fever Last Admin: 11/29/18 09:35 Dose: 650 mg Hydrocodone Bitart/Acetaminophen ([place] 325-5 Mg) 1 tab PO Q4H PRN PRN Reason: Pain (moderate 4-6) Albuterol/Ipratropium (Duoneb 3.0-0.5 Mg/3 Ml) 3 ml NEB Q4H PRN PRN Reason: Shortness Of Breath/wheezing Bisacodyl (Dulcolax) 5 mg PO DAILY PRN PRN Reason: Constipation Docusate Sodium (Colace) 100 mg PO BID PRN PRN Reason: Constipation Enoxaparin Sodium (Lovenox) 40 mg SUBCUT DAILY [facility] Last Admin: 11/30/18 09:49 Dose: 40 mg Admin: 11/29/18 09:35 Dose: 40 mg Furosemide (Lasix) 10 mg IVPUSH DAILY [facility] Last Admin: 11/30/18 09:49 Dose: 10 mg Admin: 11/29/18 09:34 Dose: 10 mg Hydralazine HCl (Apresoline) 20 mg IVPUSH Q4H PRN PRN Reason: Hypertension Last Admin: 11/30/18 19:38 Dose: 20 mg Hydromorphone HCl (Dilaudid) 0.5 mg IVPUSH Q2H PRN PRN Reason: Pain (severe 7-10) Promethazine HCl 6.25 mg/ (Sodium Chloride) 50.25 mls @ 100 mls/hr IV Q6H PRN PRN Reason: Nausea/Vomiting Vancomycin HCl 1 gm/ Sodium (Chloride) 250 mls @ 250 mls/hr IV Q8H [facility] Last Admin: 11/30/18 12:32 Dose: 250 mls/hr Lorazepam (Ativan) 1 mg IV Q6H PRN PRN Reason: Anxiety Metoprolol Tartrate (Lopressor) 5 mg IVPUSH Q4H PRN PRN Reason: Tachycardia Miscellaneous Information (Remove Patch) 1 ea TRDERM Q24H [facility] Last Admin: 11/30/18 16:46 Dose: 1 ea Nicotine (Habitrol) 21 mg TRDERM Q24H [facility] Last Admin: 11/30/18 16:46 Dose: 21 mg Admin: 11/29/18 15:24 Dose: 21 mg Ondansetron HCl (Zofran) 4 mg IV Q6H PRN PRN Reason: Nausea/Vomiting Pantoprazole Sodium (Protonix) 40 mg PO Q12H [facility] Last Admin: 11/30/18 09:49 Dose: 40 mg Admin: 11/29/18 20:56 Dose: 40 mg Polyethylene Glycol (Miralax) 17 gm PO DAILY PRN PRN Reason: Constipation Senna/Docusate Sodium (Senna Plus) 1 tab PO BID PRN PRN Reason: Constipation Last Admin: 11/29/18 06:40 Dose: 1 tab Sodium Chloride (Saline Flush) 10 ml FLUSH ASDIRECTED PRN PRN Reason: Keep Vein Open Last Admin: 11/28/18 12:14 Dose: 10 ml Temazepam (Restoril) 15 mg PO BEDTIME PRN PRN Reason: Sleep Vancomycin HCl (Pharmacy To Dose - Vancomycin) 0 dose .XX ASDIRECTED PRN PRN Reason: RX TO DOSE VANCO Assessment/Plan Comment:: Any changes or recommendations will be based on the patient's course.
[2018-11-28] MEDS ORDERED: Polyethylene Glycol 3350 Powder 17 GM Packet PO PRN (16:19)
[2018-11-28] MEDS ORDERED: Bisacodyl 5 MG Tab PO PRN (16:19)
[2018-11-28] MEDS ORDERED: Temazepam 15 MG Cap PO PRN (16:19)
[2018-11-28] MEDS ORDERED: Ondansetron 4 MG/2 ML SDV IV PRN (16:19)
[2018-11-28] MEDS ORDERED: LORazepam 2 MG/ML SDV IV PRN (16:19)
[2018-11-28] MEDS ORDERED: HYDROmorphone 0.5 MG/0.5 ML Syringe IVPUSH PRN (16:19)
[2018-11-28] MEDS ORDERED: Promethazine 6.25 MG in Sodium Chloride 0.9% 50 ML IV PRN (16:19)
[2018-11-28] MEDS ORDERED: Albuterol/Ipratropium 3.0-0.5 MG/3 ML Neb Soln NEB PRN (16:19)
[2018-11-28] MEDS ORDERED: Docusate Sodium 100 MG Cap PO PRN (16:19)
[2018-11-28] MEDS ORDERED: Acetaminophen/HYDROcodone 325-5 MG Tab PO PRN (16:19)
[2018-11-28] MEDS: Lactated Ringers 1,000 ML IV SCH (19:01)
[2018-11-28] MEDS: Pantoprazole 40 MG Vial IV SCH (20:59)
[2018-11-29] MEDS: Lactated Ringers 1,000 ML IV SCH (04:32)
[2018-11-29] MEDS: Furosemide 20 MG/2 ML VIAL IVPUSH SCH (09:34)
[2018-11-29] MEDS: Pantoprazole 40 MG Vial IV SCH (09:34)
[2018-11-29] MEDS: Enoxaparin 40 MG/0.4 ML Syringe SUBCUT SCH (09:35)
[2018-11-29] MEDS: Acetaminophen 325 MG Tab PO PRN (09:35)
--- NOTE | 2018-11-29 12:10 | PCM.PN ---
<Oz Albarado - Last Filed: 11/29/18 12:01> - General Info Date of Service: 11/29/18 Admission Dx/Problem (Free Text): Admission Diagnosis/Problem Admission Diagnosis/Problem Cellulitis of both lower extremities Subjective Update: Patient is feeling well today. He slept well last night, and has no complaints of pain. He has been ambulating well. Patient states he is aware of his hepatitis infection, and is interested in seeking treatment. He states that he has not used IV drugs for several years. Functional Status: Reports: Pain Controlled - Review of Systems General: Reports: No Symptoms HEENT: Reports: No Symptoms Pulmonary: Reports: No Symptoms Cardiovascular: Reports: No Symptoms Gastrointestinal: Reports: No Symptoms Genitourinary: Reports: No Symptoms Musculoskeletal: Reports: No Symptoms Skin: Reports: No Symptoms Neurological: Reports: No Symptoms Psychiatric: Reports: No Symptoms - Patient Data Vitals - Most Recent: Last Vital Signs Temp 99.0 F 11/29/18 09:33 Pulse 93 11/29/18 09:33 Resp 16 11/29/18 09:33 BP 140/78 11/29/18 09:33 Pulse Ox 96 11/29/18 09:33 Weight - Most Recent: 108.862 kg I&O - Last 24 Hours: Intake & Output 11/28/18 11/29/18 11/29/18 22:59 06:59 14:59 Intake Total 1611 240 Output Total 400 Balance 1211 240 Imaging Impressions - Last 24 Hours: CXR shows proper placement of PICC line. Nothing acute. Lab Results Last 24 Hours: Laboratory Results - last 24 hr 11/28/18 11/28/18 11/28/18 Range/Units 12:03 12:03 12:03 WBC 9.03 (4.23-9.07) K/mm3 RBC 4.71 (4.63-6.08) M/mm3 Hgb 13.6 L (13.7-17.5) gm/L Hct 39.1 L (40.1-51.0) % MCV 83.0 (79.0-92.2) fl MCH 28.9 (25.7-32.2) pg MCHC 34.8 (32.2-35.5) g/dl RDW Std Deviation 38.8 (35.1-43.9) fL Plt Count 294 (163-337) K/mm3 MPV 9.0 L (9.4-12.3) fl Neut % (Auto) (34.0-67.9) % Lymph % (Auto) (21.8-53.1) % Garza % (Auto) (5.3-12.2) % Eos % (Auto) (0.8-7.0) Baso % (Auto) (0.1-1.2) % Neut # (Auto) (1.78-5.38) K/mm3 Lymph # (Auto) (1.32-3.57) K/mm3 Garza # (Auto) (0.30-0.82) K/mm3 Eos # (Auto) (0.04-0.54) K/mm3 Baso # (Auto) (0.01-0.08) K/mm3 Neutrophils % (Manual) 76 H (40-60) % Band Neutrophils % 0 (0-10) % Lymphocytes % (Manual) 18 L (20-40) % Atypical Lymphs % 0 % Monocytes % (Manual) 2 (2-10) % Eosinophils % (Manual) 4 (0.8-7.0) % Basophils % (Manual) 0 L (0.2-1.2) Platelet Estimate Adequate RBC Morph Comment Normal ESR (0-15) mm/hr PT 10.1 (9.7-12.0) SECONDS INR < 0.93 APTT 26 (22-31) SECONDS D-Dimer, Quantitative (0.19-0.50) mg/L Sodium 139 (136-145) mEq/L Potassium 4.1 (3.5-5.1) mEq/L Chloride 103 (98-107) mEq/L Carbon Dioxide 28 (21-32) mEq/L Anion Gap 12.1 (5-15) BUN 16 (7-18) mg/dL Creatinine 1.0 (0.7-1.3) mg/dL Est Cr Clr Drug Dosing 105.42 mL/min Estimated GFR (MDRD) > 60 (>60) mL/min BUN/Creatinine Ratio 16.0 (14-18) Glucose 120 H (74-106) mg/dL Lactic Acid (0.4-2.0) mmol/L Calcium 8.8 (8.5-10.1) mg/dL Magnesium 2.0 (1.8-2.4) mg/dl Total Bilirubin 0.3 (0.2-1.0) mg/dL AST 33 (15-37) U/L ALT 61 (16-63) U/L Alkaline Phosphatase 97 (46-116) U/L C-Reactive Protein 3.9 H* (<1.0) mg/dL NT-Pro-B Natriuret Pep (0-125) pg/mL Total Protein 8.1 (6.4-8.2) g/dl Albumin 3.2 L (3.4-5.0) g/dl Globulin 4.9 gm/dL Albumin/Globulin Ratio 0.7 L (1-2) Hepatitis C Antibody (NEGATIVE) HIV-1 Ab Rapid Screen (NEGATIVE) 11/28/18 11/28/18 11/28/18 Range/Units 12:03 12:03 12:03 WBC (4.23-9.07) K/mm3 RBC (4.63-6.08) M/mm3 Hgb (13.7-17.5) gm/L Hct (40.1-51.0) % MCV (79.0-92.2) fl MCH (25.7-32.2) pg MCHC (32.2-35.5) g/dl RDW Std Deviation (35.1-43.9) fL Plt Count (163-337) K/mm3 MPV (9.4-12.3) fl Neut % (Auto) (34.0-67.9) % Lymph % (Auto) (21.8-53.1) % Garza % (Auto) (5.3-12.2) % Eos % (Auto) (0.8-7.0) Baso % (Auto) (0.1-1.2) % Neut # (Auto) (1.78-5.38) K/mm3 Lymph # (Auto) (1.32-3.57) K/mm3 Garza # (Auto) (0.30-0.82) K/mm3 Eos # (Auto) (0.04-0.54) K/mm3 Baso # (Auto) (0.01-0.08) K/mm3 Neutrophils % (Manual) (40-60) % Band Neutrophils % (0-10) % Lymphocytes % (Manual) (20-40) % Atypical Lymphs % % Monocytes % (Manual) (2-10) % Eosinophils % (Manual) (0.8-7.0) % Basophils % (Manual) (0.2-1.2) Platelet Estimate RBC Morph Comment ESR 48 H (0-15) mm/hr PT (9.7-12.0) SECONDS INR APTT (22-31) SECONDS D-Dimer, Quantitative (0.19-0.50) mg/L Sodium (136-145) mEq/L Potassium (3.5-5.1) mEq/L Chloride (98-107) mEq/L Carbon Dioxide (21-32) mEq/L Anion Gap (5-15) BUN (7-18) mg/dL Creatinine (0.7-1.3) mg/dL Est Cr Clr Drug Dosing mL/min Estimated GFR (MDRD) (>60) mL/min BUN/Creatinine Ratio (14-18) Glucose (74-106) mg/dL Lactic Acid (0.4-2.0) mmol/L Calcium (8.5-10.1) mg/dL Magnesium (1.8-2.4) mg/dl Total Bilirubin (0.2-1.0) mg/dL AST (15-37) U/L ALT (16-63) U/L Alkaline Phosphatase (46-116) U/L C-Reactive Protein (<1.0) mg/dL NT-Pro-B Natriuret Pep 53 (0-125) pg/mL Total Protein (6.4-8.2) g/dl Albumin (3.4-5.0) g/dl Globulin gm/dL Albumin/Globulin Ratio (1-2) Hepatitis C Antibody Positive H (NEGATIVE) HIV-1 Ab Rapid Screen Negative (NEGATIVE) 11/28/18 11/28/18 11/29/18 Range/Units 16:57 17:35 04:55 WBC 8.18 (4.23-9.07) K/mm3 RBC 4.87 (4.63-6.08) M/mm3 Hgb 13.9 (13.7-17.5) gm/L Hct 40.8 (40.1-51.0) % MCV 83.8 (79.0-92.2) fl MCH 28.5 (25.7-32.2) pg MCHC 34.1 (32.2-35.5) g/dl RDW Std Deviation 40.1 (35.1-43.9) fL Plt Count 318 (163-337) K/mm3 MPV 9.4 (9.4-12.3) fl Neut % (Auto) 63.3 (34.0-67.9) % Lymph % (Auto) 20.8 L (21.8-53.1) % Garza % (Auto) 11.4 (5.3-12.2) % Eos % (Auto) 3.9 (0.8-7.0) Baso % (Auto) 0.4 (0.1-1.2) % Neut # (Auto) 5.18 (1.78-5.38) K/mm3 Lymph # (Auto) 1.70 (1.32-3.57) K/mm3 Garza # (Auto) 0.93 H (0.30-0.82) K/mm3 Eos # (Auto) 0.32 (0.04-0.54) K/mm3 Baso # (Auto) 0.03 (0.01-0.08) K/mm3 Neutrophils % (Manual) (40-60) % Band Neutrophils % (0-10) % Lymphocytes % (Manual) (20-40) % Atypical Lymphs % % Monocytes % (Manual) (2-10) % Eosinophils % (Manual) (0.8-7.0) % Basophils % (Manual) (0.2-1.2) Platelet Estimate RBC Morph Comment ESR (0-15) mm/hr PT (9.7-12.0) SECONDS INR APTT (22-31) SECONDS D-Dimer, Quantitative 0.68 H (0.19-0.50) mg/L Sodium (136-145) mEq/L Potassium (3.5-5.1) mEq/L Chloride (98-107) mEq/L Carbon Dioxide (21-32) mEq/L Anion Gap (5-15) BUN (7-18) mg/dL Creatinine (0.7-1.3) mg/dL Est Cr Clr Drug Dosing mL/min Estimated GFR (MDRD) (>60) mL/min BUN/Creatinine Ratio (14-18) Glucose (74-106) mg/dL Lactic Acid 0.6 (0.4-2.0) mmol/L Calcium (8.5-10.1) mg/dL Magnesium (1.8-2.4) mg/dl Total Bilirubin (0.2-1.0) mg/dL AST (15-37) U/L ALT (16-63) U/L Alkaline Phosphatase (46-116) U/L C-Reactive Protein (<1.0) mg/dL NT-Pro-B Natriuret Pep (0-125) pg/mL Total Protein (6.4-8.2) g/dl Albumin (3.4-5.0) g/dl Globulin gm/dL Albumin/Globulin Ratio (1-2) Hepatitis C Antibody (NEGATIVE) HIV-1 Ab Rapid Screen (NEGATIVE) 11/29/18 Range/Units 04:55 WBC (4.23-9.07) K/mm3 RBC (4.63-6.08) M/mm3 Hgb (13.7-17.5) gm/L Hct (40.1-51.0) % MCV (79.0-92.2) fl MCH (25.7-32.2) pg MCHC (32.2-35.5) g/dl RDW Std Deviation (35.1-43.9) fL Plt Count (163-337) K/mm3 MPV (9.4-12.3) fl Neut % (Auto) (34.0-67.9) % Lymph % (Auto) (21.8-53.1) % Garza % (Auto) (5.3-12.2) % Eos % (Auto) (0.8-7.0) Baso % (Auto) (0.1-1.2) % Neut # (Auto) (1.78-5.38) K/mm3 Lymph # (Auto) (1.32-3.57) K/mm3 Garza # (Auto) (0.30-0.82) K/mm3 Eos # (Auto) (0.04-0.54) K/mm3 Baso # (Auto) (0.01-0.08) K/mm3 Neutrophils % (Manual) (40-60) % Band Neutrophils % (0-10) % Lymphocytes % (Manual) (20-40) % Atypical Lymphs % % Monocytes % (Manual) (2-10) % Eosinophils % (Manual) (0.8-7.0) % Basophils % (Manual) (0.2-1.2) Platelet Estimate RBC Morph Comment ESR (0-15) mm/hr PT (9.7-12.0) SECONDS INR APTT (22-31) SECONDS D-Dimer, Quantitative (0.19-0.50) mg/L Sodium 138 (136-145) mEq/L Potassium 4.0 (3.5-5.1) mEq/L Chloride 103 (98-107) mEq/L Carbon Dioxide 26 (21-32) mEq/L Anion Gap 13.0 (5-15) BUN 10 (7-18) mg/dL Creatinine 1.0 (0.7-1.3) mg/dL Est Cr Clr Drug Dosing 105.42 mL/min Estimated GFR (MDRD) > 60 (>60) mL/min BUN/Creatinine Ratio 10.0 L (14-18) Glucose 119 H (74-106) mg/dL Lactic Acid (0.4-2.0) mmol/L Calcium 8.6 (8.5-10.1) mg/dL Magnesium 1.9 (1.8-2.4) mg/dl Total Bilirubin (0.2-1.0) mg/dL AST (15-37) U/L ALT (16-63) U/L Alkaline Phosphatase (46-116) U/L C-Reactive Protein 3.5 H* (<1.0) mg/dL NT-Pro-B Natriuret Pep (0-125) pg/mL Total Protein (6.4-8.2) g/dl Albumin (3.4-5.0) g/dl Globulin gm/dL Albumin/Globulin Ratio (1-2) Hepatitis C Antibody (NEGATIVE) HIV-1 Ab Rapid Screen (NEGATIVE) Med Orders - Current: Current Medications Acetaminophen (Tylenol) 650 mg PO Q4H PRN PRN Reason: Pain (Mild 1-3)/fever Last Admin: 11/29/18 09:35 Dose: 650 mg Hydrocodone Bitart/Acetaminophen ([place] 325-5 Mg) 1 tab PO Q4H PRN PRN Reason: Pain (moderate 4-6) Albuterol/Ipratropium (Duoneb 3.0-0.5 Mg/3 Ml) 3 ml NEB Q4H PRN PRN Reason: Shortness Of Breath/wheezing Bisacodyl (Dulcolax) 5 mg PO DAILY PRN PRN Reason: Constipation Docusate Sodium (Colace) 100 mg PO BID PRN PRN Reason: Constipation Enoxaparin Sodium (Lovenox) 40 mg SUBCUT DAILY [facility] Last Admin: 11/29/18 09:35 Dose: 40 mg Furosemide (Lasix) 10 mg IVPUSH DAILY [facility] Last Admin: 11/29/18 09:34 Dose: 10 mg Hydromorphone HCl (Dilaudid) 0.5 mg IVPUSH Q2H PRN PRN Reason: Pain (severe 7-10) Lactated Ringer's (Ringers, Lactated) 1,000 mls @ 125 mls/hr IV ASDIRECTED [facility] Last Admin: 11/29/18 04:32 Dose: 125 mls/hr Promethazine HCl 6.25 mg/ (Sodium Chloride) 50.25 mls @ 100 mls/hr IV Q6H PRN PRN Reason: Nausea/Vomiting Vancomycin HCl 1.25 gm/ Sodium (Chloride) 250 mls @ 166.667 mls/hr IV Q8H [facility] Last Admin: 11/29/18 04:36 Dose: 125 mls/hr Lorazepam (Ativan) 1 mg IV Q6H PRN PRN Reason: Anxiety Ondansetron HCl (Zofran) 4 mg IV Q6H PRN PRN Reason: Nausea/Vomiting Pantoprazole Sodium (Protonix Iv) 40 mg IV Q12HR [facility] Last Admin: 11/29/18 09:34 Dose: 40 mg Polyethylene Glycol (Miralax) 17 gm PO DAILY PRN PRN Reason: Constipation Senna/Docusate Sodium (Senna Plus) 1 tab PO BID PRN PRN Reason: Constipation Last Admin: 11/29/18 06:40 Dose: 1 tab Sodium Chloride (Saline Flush) 10 ml FLUSH ASDIRECTED PRN PRN Reason: Keep Vein Open Last Admin: 11/28/18 12:14 Dose: 10 ml Temazepam (Restoril) 15 mg PO BEDTIME PRN PRN Reason: Sleep Vancomycin HCl (Pharmacy To Dose - Vancomycin) 0 dose .XX ASDIRECTED PRN PRN Reason: RX TO DOSE VANCO Discontinued Medications Acetaminophen (Tylenol) 975 mg PO ONETIME ONE Stop: 11/28/18 11:10 Last Admin: 11/28/18 12:12 Dose: 975 mg Fentanyl (Sublimaze) 100 mcg IVPUSH ONETIME ONE Stop: 11/28/18 13:38 Last Admin: 11/28/18 14:28 Dose: 100 mcg Furosemide (Lasix) 40 mg IVPUSH NOW ONE Stop: 11/28/18 10:53 Last Admin: 11/28/18 12:10 Dose: 40 mg Clindamycin Phosphate 900 mg/ (Premix) 50 mls @ 100 mls/hr IV ONETIME ONE Stop: 11/28/18 11:18 Last Admin: 11/28/18 12:12 Dose: 100 mls/hr Vancomycin HCl 2 gm/ Sodium (Chloride) 250 mls @ 250 mls/hr IV ONETIME ONE Stop: 11/28/18 11:50 Last Admin: 11/28/18 12:40 Dose: Not Given Vancomycin HCl 2 gm/ Sodium (Chloride) 500 mls @ 250 mls/hr IV ONETIME ONE Stop: 11/28/18 14:29 Last Admin: 11/28/18 13:00 Dose: 250 mls/hr Vancomycin HCl 500 mg/ Sodium (Chloride) 250 mls @ 166.667 mls/hr IV Q12H [facility] Last Admin: 11/28/18 17:49 Dose: Not Given Lidocaine/Epinephrine (Xylocaine 1% With Epinephrine 1:100,000) Confirm Administered Dose 20 ml .ROUTE .STK-MED ONE Stop: 11/28/18 14:09 Last Admin: 11/28/18 14:15 Dose: 20 ml Lidocaine/Epinephrine (Xylocaine 1% With Epinephrine 1:100,000) 20 ml INJECT ONETIME ONE Stop: 11/28/18 14:38 Last Admin: 11/28/18 14:37 Dose: Not Given Midazolam HCl (Versed 1 Mg/Ml) 5 mg IVPUSH ONETIME ONE Stop: 11/28/18 13:38 Last Admin: 11/28/18 14:28 Dose: Not Given Midazolam HCl (Versed 1 Mg/Ml) Confirm Administered Dose 4 mg .ROUTE .STK-MED ONE Stop: 11/28/18 13:44 Last Admin: 11/28/18 14:27 Dose: 4 mg - Exam General: Alert, Oriented, Cooperative, No Acute Distress HEENT: Pupils Equal, Pupils Reactive, EOMI, Mucous Membr. Moist/Cherry Neck: Supple, Trachea Midline, No JVD. No: Lymphadenopathy Lungs: Clear to Auscultation, Normal Respiratory Effort. No: Crackles, Rales, Wheezing Cardiovascular: Regular Rate, Regular Rhythm GI/Abdominal Exam: Normal Bowel Sounds, Soft, Non-Tender, No Organomegaly, No Distention (Male) Exam: Deferred Back Exam: Normal Inspection, Full Range of Motion Extremities: Pedal Edema, Joint Swelling, Increased Warmth, Redness Skin: Warm, Dry, Intact Wound/Incisions: No Drainage, Erythema Improving Neurological: No New Focal Deficit Psy/Mental Status: Alert, Normal Affect, Normal Mood - Problem List Review Problem List Initiated/Reviewed/Updated: Yes - Plan Plan:: Assessment: Acute: Bilateral LE cellulitis with significant edema * no diabetes or renal disease * 4-5 days now: red, edema and tightness; improved today * R/o DVT with d-dimer and duplex U/S (thrombophlebitis); no DVT per U/S * IV vancomycin for pharmacy to dose * PRN diuretic Overweight/obesity class I * BMI of 31.7 * Dietary consult for weight management Inadequate IV access * Central line placed * Hx/o IV drug abuse Chronic: Hx/o IVD, heroin and marijuana use Plan: Continue IV abx Routine AM labs Sepsis work up Regular diet Activity as tolerated DVT/GI prophylaxis PT/OT to assess and treat SW/CM for d/c planning Code status:1 prognosis is guarded-serious Additional orders as above. Patient examined in concert with medical student. Above assessment and plan discussed with and agreed upon by me. <Marielos Rodrigez T - Last Filed: 11/30/18 20:19> - Patient Data Vitals - Most Recent: Last Vital Signs Temp 37.1 C 11/30/18 16:49 Pulse 89 11/30/18 16:49 Resp 20 11/30/18 16:49 BP 141/78 H 11/30/18 16:49 Pulse Ox 95 11/30/18 16:49 I&O - Last 24 Hours: Intake & Output 11/30/18 11/30/18 11/30/18 06:59 14:59 22:59 Intake Total 673 751 9622 Balance 631 383 8841 Lab Results Last 24 Hours: Laboratory Results - last 24 hr 11/30/18 11/30/18 11/30/18 Range/Units 04:45 04:45 11:11 WBC 6.70 (4.23-9.07) K/mm3 RBC 4.52 L (4.63-6.08) M/mm3 Hgb 12.9 L (13.7-17.5) gm/L Hct 38.2 L (40.1-51.0) % MCV 84.5 (79.0-92.2) fl MCH 28.5 (25.7-32.2) pg MCHC 33.8 (32.2-35.5) g/dl RDW Std Deviation 39.4 (35.1-43.9) fL Plt Count 293 (163-337) K/mm3 MPV 8.9 L (9.4-12.3) fl Neut % (Auto) 50.6 (34.0-67.9) % Lymph % (Auto) 31.8 (21.8-53.1) % Garza % (Auto) 11.8 (5.3-12.2) % Eos % (Auto) 4.8 (0.8-7.0) Baso % (Auto) 0.6 (0.1-1.2) % Neut # (Auto) 3.39 (1.78-5.38) K/mm3 Lymph # (Auto) 2.13 (1.32-3.57) K/mm3 Garza # (Auto) 0.79 (0.30-0.82) K/mm3 Eos # (Auto) 0.32 (0.04-0.54) K/mm3 Baso # (Auto) 0.04 (0.01-0.08) K/mm3 Sodium 140 (136-145) mEq/L Potassium 4.0 (3.5-5.1) mEq/L Chloride 104 (98-107) mEq/L Carbon Dioxide 28 (21-32) mEq/L Anion Gap 12.0 (5-15) BUN 10 (7-18) mg/dL Creatinine 1.1 (0.7-1.3) mg/dL Est Cr Clr Drug Dosing 95.84 mL/min Estimated GFR (MDRD) > 60 (>60) mL/min BUN/Creatinine Ratio 9.1 L (14-18) Glucose 103 (74-106) mg/dL Calcium 8.3 L (8.5-10.1) mg/dL Magnesium 1.9 (1.8-2.4) mg/dl C-Reactive Protein 1.9 H* (<1.0) mg/dL Vancomycin Trough 16.2 (10.0-20.0) [place] Results Last 24 Hours: Microbiology 11/28/18 17:35 Aerobic Blood Culture - Preliminary Blood - Venous - Lab Draw NO GROWTH AFTER 2 DAYS Anaerobic Blood Culture - Preliminary NO GROWTH AFTER 2 DAYS 11/28/18 16:57 Aerobic Blood Culture - Preliminary Blood - Venous NO GROWTH AFTER 2 DAYS Anaerobic Blood Culture - Preliminary NO GROWTH AFTER 2 DAYS Med Orders - Current: Current Medications Acetaminophen (Tylenol) 650 mg PO Q4H PRN PRN Reason: Pain (Mild 1-3)/fever Last Admin: 11/29/18 09:35 Dose: 650 mg Hydrocodone Bitart/Acetaminophen ([place] 325-5 Mg) 1 tab PO Q4H PRN PRN Reason: Pain (moderate 4-6) Albuterol/Ipratropium (Duoneb 3.0-0.5 Mg/3 Ml) 3 ml NEB Q4H PRN PRN Reason: Shortness Of Breath/wheezing Bisacodyl (Dulcolax) 5 mg PO DAILY PRN PRN Reason: Constipation Docusate Sodium (Colace) 100 mg PO BID PRN PRN Reason: Constipation Enoxaparin Sodium (Lovenox) 40 mg SUBCUT DAILY [facility] Last Admin: 11/30/18 09:49 Dose: 40 mg Furosemide (Lasix) 10 mg IVPUSH DAILY [facility] Last Admin: 11/30/18 09:49 Dose: 10 mg Hydralazine HCl (Apresoline) 20 mg IVPUSH Q4H PRN PRN Reason: Hypertension Last Admin: 11/30/18 19:38 Dose: 20 mg Hydromorphone HCl (Dilaudid) 0.5 mg IVPUSH Q2H PRN PRN Reason: Pain (severe 7-10) Promethazine HCl 6.25 mg/ (Sodium Chloride) 50.25 mls @ 100 mls/hr IV Q6H PRN PRN Reason: Nausea/Vomiting Vancomycin HCl 1 gm/ Sodium (Chloride) 250 mls @ 250 mls/hr IV Q8H [facility] Last Admin: 11/30/18 12:32 Dose: 250 mls/hr Lorazepam (Ativan) 1 mg IV Q6H PRN PRN Reason: Anxiety Metoprolol Tartrate (Lopressor) 5 mg IVPUSH Q4H PRN PRN Reason: Tachycardia Miscellaneous Information (Remove Patch) 1 ea TRDERM Q24H [facility] Last Admin: 11/30/18 16:46 Dose: 1 ea Nicotine (Habitrol) 21 mg TRDERM Q24H [facility] Last Admin: 11/30/18 16:46 Dose: 21 mg Ondansetron HCl (Zofran) 4 mg IV Q6H PRN PRN Reason: Nausea/Vomiting Pantoprazole Sodium (Protonix) 40 mg PO Q12H [facility] Last Admin: 11/30/18 09:49 Dose: 40 mg Polyethylene Glycol (Miralax) 17 gm PO DAILY PRN PRN Reason: Constipation Senna/Docusate Sodium (Senna Plus) 1 tab PO BID PRN PRN Reason: Constipation Last Admin: 11/29/18 06:40 Dose: 1 tab Sodium Chloride (Saline Flush) 10 ml FLUSH ASDIRECTED PRN PRN Reason: Keep Vein Open Last Admin: 11/28/18 12:14 Dose: 10 ml Temazepam (Restoril) 15 mg PO BEDTIME PRN PRN Reason: Sleep Vancomycin HCl (Pharmacy To Dose - Vancomycin) 0 dose .XX ASDIRECTED PRN PRN Reason: RX TO DOSE VANCO Discontinued Medications Acetaminophen (Tylenol) 975 mg PO ONETIME ONE Stop: 11/28/18 11:10 Last Admin: 11/28/18 12:12 Dose: 975 mg Fentanyl (Sublimaze) 100 mcg IVPUSH ONETIME ONE Stop: 11/28/18 13:38 Last Admin: 11/28/18 14:28 Dose: 100 mcg Furosemide (Lasix) 40 mg IVPUSH NOW ONE Stop: 11/28/18 10:53 Last Admin: 11/28/18 12:10 Dose: 40 mg Clindamycin Phosphate 900 mg/ (Premix) 50 mls @ 100 mls/hr IV ONETIME ONE Stop: 11/28/18 11:18 Last Admin: 11/28/18 12:12 Dose: 100 mls/hr Vancomycin HCl 2 gm/ Sodium (Chloride) 250 mls @ 250 mls/hr IV ONETIME ONE Stop: 11/28/18 11:50 Last Admin: 11/28/18 12:40 Dose: Not Given Vancomycin HCl 2 gm/ Sodium (Chloride) 500 mls @ 250 mls/hr IV ONETIME ONE Stop: 11/28/18 14:29 Last Admin: 11/28/18 13:00 Dose: 250 mls/hr Lactated Ringer's (Ringers, Lactated) 1,000 mls @ 125 mls/hr IV ASDIRECTED [facility] Last Admin: 11/29/18 04:32 Dose: 125 mls/hr Vancomycin HCl 500 mg/ Sodium (Chloride) 250 mls @ 166.667 mls/hr IV Q12H [facility] Last Admin: 11/28/18 17:49 Dose: Not Given Vancomycin HCl 1.25 gm/ Sodium (Chloride) 250 mls @ 166.667 mls/hr IV Q8H [facility] Last Admin: 11/30/18 03:20 Dose: 125 mls/hr Lidocaine/Epinephrine (Xylocaine 1% With Epinephrine 1:100,000) Confirm Administered Dose 20 ml .ROUTE .STK-MED ONE Stop: 11/28/18 14:09 Last Admin: 11/28/18 14:15 Dose: 20 ml Lidocaine/Epinephrine (Xylocaine 1% With Epinephrine 1:100,000) 20 ml INJECT ONETIME ONE Stop: 11/28/18 14:38 Last Admin: 11/28/18 14:37 Dose: Not Given Midazolam HCl (Versed 1 Mg/Ml) 5 mg IVPUSH ONETIME ONE Stop: 11/28/18 13:38 Last Admin: 11/28/18 14:28 Dose: Not Given Midazolam HCl (Versed 1 Mg/Ml) Confirm Administered Dose 4 mg .ROUTE .STK-MED ONE Stop: 11/28/18 13:44 Last Admin: 11/28/18 14:27 Dose: 4 mg Pantoprazole Sodium (Protonix Iv) 40 mg IV Q12HR [facility] Last Admin: 11/29/18 09:34 Dose: 40 mg - Exam Extremities: Other (Improved b/l extremity edema and erythema) Peripheral Pulses: 0: Dorsalis Pedis (L), Dorsalis Pedis (R) - Problem List Review Problem List Initiated/Reviewed/Updated: Yes - My Orders Last 24 Hours: My Active Orders 11/29/18 21:00 Pantoprazole [ProTONIX] 40 mg PO Q12H 11/30/18 13:00 Vancomycin 1 gm Sodium Chloride 0.9% [Normal Saline] 250 ml IV Q8H 11/30/18 15:30 Remove Patch 1 ea TRDERM Q24H 11/30/18 15:54 Metoprolol Tartrate [Lopressor] 5 mg IVPUSH Q4H PRN hydrALAZINE [Apresoline] 20 mg IVPUSH Q4H PRN 12/01/18 05:11 A1C [GLYCOSYLATED HEMOGLOBIN,HGBA1C] [CHEM] AM BASIC METABOLIC PANEL,BMP [CHEM] AM C-REACTIVE PROTEIN [CHEM] AM CBC WITH AUTO DIFF [HEME] AM MAGNESIUM [CHEM] AM TSH [CHEM] AM VITAMIN D,25-HYDROXY [CHEM] AM 12/02/18 04:30 VANCOMYCIN TROUGH [CHEM] Timed 12/02/18 05:11 BASIC METABOLIC PANEL,BMP [CHEM] AM C-REACTIVE PROTEIN [CHEM] AM CBC WITH AUTO DIFF [HEME] AM MAGNESIUM [CHEM] AM 12/03/18 05:11 BASIC METABOLIC PANEL,BMP [CHEM] AM C-REACTIVE PROTEIN [CHEM] AM CBC WITH AUTO DIFF [HEME] AM MAGNESIUM [CHEM] AM - Plan Plan:: Assessment: Acute: Bilateral LE cellulitis with significant edema * no diabetes or renal disease * 4-5 days now: red, edema and tightness; improved today * D-dimer insignificant level * Duplex U/S; no DVT or thrombophlebitis U/S * Continue IV Vancomycin for pharmacy to dose * PRN diuretic to relief edema Overweight/obesity class I * BMI of 31.7 * Dietary consult for weight management Inadequate IV access * Central line placed * Hx/o IV drug abuse Chronic: Hx/o IVDU, Heroin and Marijuana Use Plan: He is clinically stable. Afebrile w/o leukocytosis. He has been ambulating w/o difficulties Routine AM labs Regular diet Activity as tolerated DVT/GI prophylaxis SW/CM for d/c planning Code status:1 Encouraged to ambulate as tolerated Prognosis is guarded-serious Additional orders as above LOS expect > 96 hrs pending repeat blood cultures
[2018-11-29] MEDS: Nicotine 21 MG/24 Hr Patch TRDERM SCH (15:24)
[2018-11-29] MEDS: Pantoprazole 40 MG Tab.CR PO SCH (20:56)
[2018-11-30] MEDS: Enoxaparin 40 MG/0.4 ML Syringe SUBCUT SCH (09:49)
[2018-11-30] MEDS: Pantoprazole 40 MG Tab.CR PO SCH ×2 (09:49→20:51)
[2018-11-30] MEDS: Furosemide 20 MG/2 ML VIAL IVPUSH SCH (09:49)
[2018-11-30] MEDS ORDERED: hydrALAZINE 20 MG/ML SDV IVPUSH PRN (15:54)
[2018-11-30] MEDS ORDERED: Metoprolol Tartrate 5 MG/5 ML SDV IVPUSH PRN (15:54)
[2018-11-30] MEDS: Nicotine 21 MG/24 Hr Patch TRDERM SCH (16:46)
[2018-12-01] MEDS: Acetaminophen 325 MG Tab PO PRN (05:31)
[2018-12-01 07:29] LABS: VITAMIN D,25-HYDROXY 14.2 ng/ml (30.0-100.0)
[2018-12-01 08:25] LABS: HEMOGLOBIN A1C 5.4 % (4.50-6.20)
[2018-12-01] MEDS: Furosemide 20 MG/2 ML VIAL IVPUSH SCH (08:37)
[2018-12-01] MEDS: Pantoprazole 40 MG Tab.CR PO SCH ×2 (08:38→20:07)
[2018-12-01] MEDS: Enoxaparin 40 MG/0.4 ML Syringe SUBCUT SCH (08:38)
--- NOTE | 2018-12-01 10:38 | PCM.PN ---
- General Info Date of Service: 11/30/18 Admission Dx/Problem (Free Text): Admission Diagnosis/Problem Admission Diagnosis/Problem Cellulitis of both lower extremities Subjective Update: Follow up Functional Status: Reports: Pain Controlled, Tolerating Diet, Ambulating, Urinating - Review of Systems General: Denies: Fever, Weakness, Fatigue, Malaise, Chills HEENT: Reports: No Symptoms Pulmonary: Denies: Shortness of Breath Cardiovascular: Denies: Chest Pain, Dyspnea on Exertion, Lightheadedness Gastrointestinal: Denies: Abdominal Pain, Nausea, Vomiting Genitourinary: Reports: No Symptoms Musculoskeletal: Denies: Leg Pain Skin: Denies: Cyanosis, Mottled, Pallor, Diaphoresis, Bruising Neurological: Denies: Confusion, Difficulty Walking, Weakness, Gait Disturbance Psychiatric: Denies: Depression, Anxiety, Agitation, Hallucinations - Patient Data Vitals - Most Recent: Last Vital Signs Temp 36.6 C 12/01/18 04:55 Pulse 73 12/01/18 04:55 Resp 16 12/01/18 04:55 BP 123/79 12/01/18 04:55 Pulse Ox 96 12/01/18 04:55 Weight - Most Recent: 109.815 kg I&O - Last 24 Hours: Intake & Output 11/30/18 12/01/18 12/01/18 22:59 06:59 14:59 Intake Total 2300 650 240 Balance 2300 650 240 Lab Results Last 24 Hours: Laboratory Results - last 24 hr 11/30/18 12/01/18 12/01/18 Range/Units 11:11 06:22 06:22 WBC 8.33 (4.23-9.07) K/mm3 RBC 4.86 (4.63-6.08) M/mm3 Hgb 13.7 (13.7-17.5) gm/L Hct 40.3 (40.1-51.0) % MCV 82.9 (79.0-92.2) fl MCH 28.2 (25.7-32.2) pg MCHC 34.0 (32.2-35.5) g/dl RDW Std Deviation 38.6 (35.1-43.9) fL Plt Count 327 (163-337) K/mm3 MPV 8.8 L (9.4-12.3) fl Neut % (Auto) 60.2 (34.0-67.9) % Lymph % (Auto) 22.6 (21.8-53.1) % [place] % (Auto) 12.1 (5.3-12.2) % Eos % (Auto) 4.0 (0.8-7.0) Baso % (Auto) 0.4 (0.1-1.2) % Neut # (Auto) 5.02 (1.78-5.38) K/mm3 Lymph # (Auto) 1.88 (1.32-3.57) K/mm3 [place] # (Auto) 1.01 H (0.30-0.82) K/mm3 Eos # (Auto) 0.33 (0.04-0.54) K/mm3 Baso # (Auto) 0.03 (0.01-0.08) K/mm3 Sodium 138 (136-145) mEq/L Potassium 4.3 (3.5-5.1) mEq/L Chloride 104 (98-107) mEq/L Carbon Dioxide 29 (21-32) mEq/L Anion Gap 9.3 (5-15) BUN 12 (7-18) mg/dL Creatinine 1.0 (0.7-1.3) mg/dL Est Cr Clr Drug Dosing 105.42 mL/min Estimated GFR (MDRD) > 60 (>60) mL/min BUN/Creatinine Ratio 12.0 L (14-18) Glucose 100 (74-106) mg/dL Hemoglobin A1c (4.50-6.20) % Calcium 9.1 (8.5-10.1) mg/dL Magnesium 1.9 (1.8-2.4) mg/dl C-Reactive Protein 1.1 H* (<1.0) mg/dL Vitamin D 25-Hydroxy 14.2 L (30.0-100.0) ng/ml TSH 3rd Generation 1.525 (0.358-3.74) uIU/mL Vancomycin Trough 16.2 (10.0-20.0) 12/01/18 Range/Units 06:22 WBC (4.23-9.07) K/mm3 RBC (4.63-6.08) M/mm3 Hgb (13.7-17.5) gm/L Hct (40.1-51.0) % MCV (79.0-92.2) fl MCH (25.7-32.2) pg MCHC (32.2-35.5) g/dl RDW Std Deviation (35.1-43.9) fL Plt Count (163-337) K/mm3 MPV (9.4-12.3) fl Neut % (Auto) (34.0-67.9) % Lymph % (Auto) (21.8-53.1) % [place] % (Auto) (5.3-12.2) % Eos % (Auto) (0.8-7.0) Baso % (Auto) (0.1-1.2) % Neut # (Auto) (1.78-5.38) K/mm3 Lymph # (Auto) (1.32-3.57) K/mm3 [place] # (Auto) (0.30-0.82) K/mm3 Eos # (Auto) (0.04-0.54) K/mm3 Baso # (Auto) (0.01-0.08) K/mm3 Sodium (136-145) mEq/L Potassium (3.5-5.1) mEq/L Chloride (98-107) mEq/L Carbon Dioxide (21-32) mEq/L Anion Gap (5-15) BUN (7-18) mg/dL Creatinine (0.7-1.3) mg/dL Est Cr Clr Drug Dosing mL/min Estimated GFR (MDRD) (>60) mL/min BUN/Creatinine Ratio (14-18) Glucose (74-106) mg/dL Hemoglobin A1c 5.40 (4.50-6.20) % Calcium (8.5-10.1) mg/dL Magnesium (1.8-2.4) mg/dl C-Reactive Protein (<1.0) mg/dL Vitamin D 25-Hydroxy (30.0-100.0) ng/ml TSH 3rd Generation (0.358-3.74) uIU/mL Vancomycin Trough (10.0-20.0) [place] Results Last 24 Hours: Microbiology 11/28/18 17:35 Aerobic Blood Culture - Preliminary Blood - Venous - Lab Draw NO GROWTH AFTER 2 DAYS Anaerobic Blood Culture - Preliminary NO GROWTH AFTER 2 DAYS 11/28/18 16:57 Aerobic Blood Culture - Preliminary Blood - Venous NO GROWTH AFTER 2 DAYS Anaerobic Blood Culture - Preliminary NO GROWTH AFTER 2 DAYS Med Orders - Current: Current Medications Acetaminophen (Tylenol) 650 mg PO Q4H PRN PRN Reason: Pain (Mild 1-3)/fever Last Admin: 12/01/18 05:31 Dose: 650 mg Hydrocodone Bitart/Acetaminophen ([place] 325-5 Mg) 1 tab PO Q4H PRN PRN Reason: Pain (moderate 4-6) Albuterol/Ipratropium (Duoneb 3.0-0.5 Mg/3 Ml) 3 ml NEB Q4H PRN PRN Reason: Shortness Of Breath/wheezing Bisacodyl (Dulcolax) 5 mg PO DAILY PRN PRN Reason: Constipation Cholecalciferol (Vitamin D3) 5,000 unit PO DAILY@2100 [facility] Docusate Sodium (Colace) 100 mg PO BID PRN PRN Reason: Constipation Enoxaparin Sodium (Lovenox) 40 mg SUBCUT DAILY [facility] Last Admin: 12/01/18 08:38 Dose: 40 mg Furosemide (Lasix) 10 mg IVPUSH DAILY [facility] Last Admin: 12/01/18 08:37 Dose: 10 mg Hydralazine HCl (Apresoline) 20 mg IVPUSH Q4H PRN PRN Reason: Hypertension Last Admin: 11/30/18 19:38 Dose: 20 mg Hydromorphone HCl (Dilaudid) 0.5 mg IVPUSH Q2H PRN PRN Reason: Pain (severe 7-10) Promethazine HCl 6.25 mg/ (Sodium Chloride) 50.25 mls @ 100 mls/hr IV Q6H PRN PRN Reason: Nausea/Vomiting Vancomycin HCl 1 gm/ Sodium (Chloride) 250 mls @ 250 mls/hr IV Q8H [facility] Last Admin: 12/01/18 04:53 Dose: 250 mls/hr Lorazepam (Ativan) 1 mg IV Q6H PRN PRN Reason: Anxiety Metoprolol Tartrate (Lopressor) 5 mg IVPUSH Q4H PRN PRN Reason: Tachycardia Last Admin: 11/30/18 20:58 Dose: 5 mg Miscellaneous Information (Remove Patch) 1 ea TRDERM Q24H [facility] Last Admin: 11/30/18 16:46 Dose: 1 ea Nicotine (Habitrol) 21 mg TRDERM Q24H [facility] Last Admin: 11/30/18 16:46 Dose: 21 mg Ondansetron HCl (Zofran) 4 mg IV Q6H PRN PRN Reason: Nausea/Vomiting Pantoprazole Sodium (Protonix) 40 mg PO Q12H [facility] Last Admin: 12/01/18 08:38 Dose: 40 mg Polyethylene Glycol (Miralax) 17 gm PO DAILY PRN PRN Reason: Constipation Senna/Docusate Sodium (Senna Plus) 1 tab PO BID PRN PRN Reason: Constipation Last Admin: 11/29/18 06:40 Dose: 1 tab Sodium Chloride (Saline Flush) 10 ml FLUSH ASDIRECTED PRN PRN Reason: Keep Vein Open Last Admin: 11/28/18 12:14 Dose: 10 ml Temazepam (Restoril) 15 mg PO BEDTIME PRN PRN Reason: Sleep Vancomycin HCl (Pharmacy To Dose - Vancomycin) 0 dose .XX ASDIRECTED PRN PRN Reason: RX TO DOSE VANCO Discontinued Medications Acetaminophen (Tylenol) 975 mg PO ONETIME ONE Stop: 11/28/18 11:10 Last Admin: 11/28/18 12:12 Dose: 975 mg Fentanyl (Sublimaze) 100 mcg IVPUSH ONETIME ONE Stop: 11/28/18 13:38 Last Admin: 11/28/18 14:28 Dose: 100 mcg Furosemide (Lasix) 40 mg IVPUSH NOW ONE Stop: 11/28/18 10:53 Last Admin: 11/28/18 12:10 Dose: 40 mg Clindamycin Phosphate 900 mg/ (Premix) 50 mls @ 100 mls/hr IV ONETIME ONE Stop: 11/28/18 11:18 Last Admin: 11/28/18 12:12 Dose: 100 mls/hr Vancomycin HCl 2 gm/ Sodium (Chloride) 250 mls @ 250 mls/hr IV ONETIME ONE Stop: 11/28/18 11:50 Last Admin: 11/28/18 12:40 Dose: Not Given Vancomycin HCl 2 gm/ Sodium (Chloride) 500 mls @ 250 mls/hr IV ONETIME ONE Stop: 11/28/18 14:29 Last Admin: 11/28/18 13:00 Dose: 250 mls/hr Lactated Ringer's (Ringers, Lactated) 1,000 mls @ 125 mls/hr IV ASDIRECTED [facility] Last Admin: 11/29/18 04:32 Dose: 125 mls/hr Vancomycin HCl 500 mg/ Sodium (Chloride) 250 mls @ 166.667 mls/hr IV Q12H [facility] Last Admin: 11/28/18 17:49 Dose: Not Given Vancomycin HCl 1.25 gm/ Sodium (Chloride) 250 mls @ 166.667 mls/hr IV Q8H [facility] Last Admin: 11/30/18 03:20 Dose: 125 mls/hr Lidocaine/Epinephrine (Xylocaine 1% With Epinephrine 1:100,000) Confirm Administered Dose 20 ml .ROUTE .STK-MED ONE Stop: 11/28/18 14:09 Last Admin: 11/28/18 14:15 Dose: 20 ml Lidocaine/Epinephrine (Xylocaine 1% With Epinephrine 1:100,000) 20 ml INJECT ONETIME ONE Stop: 11/28/18 14:38 Last Admin: 11/28/18 14:37 Dose: Not Given Midazolam HCl (Versed 1 Mg/Ml) 5 mg IVPUSH ONETIME ONE Stop: 11/28/18 13:38 Last Admin: 11/28/18 14:28 Dose: Not Given Midazolam HCl (Versed 1 Mg/Ml) Confirm Administered Dose 4 mg .ROUTE .STK-MED ONE Stop: 11/28/18 13:44 Last Admin: 11/28/18 14:27 Dose: 4 mg Pantoprazole Sodium (Protonix Iv) 40 mg IV Q12HR [facility] Last Admin: 11/29/18 09:34 Dose: 40 mg - Exam General: Alert, Oriented, Cooperative, No Acute Distress HEENT: Pupils Equal, Pupils Reactive, EOMI, Mucous Membr. Moist/[place] Neck: Supple Lungs: Clear to Auscultation, Normal Respiratory Effort Cardiovascular: Regular Rate, Regular Rhythm GI/Abdominal Exam: Normal Bowel Sounds, Soft, Non-Tender, No Organomegaly, No Distention, No Abnormal Bruit (Male) Exam: Deferred Back Exam: Normal Inspection, Full Range of Motion Extremities: Normal Inspection, Normal Range of Motion, Non-Tender, Normal Capillary Refill, Pedal Edema (improved), Redness (improving), Other (B/L lower extremity edema: improved) Peripheral Pulses: 1+: Posterior Tibial (L), Posterior Tibial (R), Dorsalis Pedis (L), Dorsalis Pedis (R) Skin: Warm, Dry, Intact Neurological: No New Focal Deficit, Normal Gait Psy/Mental Status: Alert, Normal Affect, Normal Mood - Problem List Review Problem List Initiated/Reviewed/Updated: Yes - My Orders Last 24 Hours: My Active Orders 11/30/18 13:00 Vancomycin 1 gm Sodium Chloride 0.9% [Normal Saline] 250 ml IV Q8H 11/30/18 15:30 Remove Patch 1 ea TRDERM Q24H 11/30/18 15:54 Metoprolol Tartrate [Lopressor] 5 mg IVPUSH Q4H PRN hydrALAZINE [Apresoline] 20 mg IVPUSH Q4H PRN 12/02/18 04:30 VANCOMYCIN TROUGH [CHEM] Timed 12/02/18 05:11 BASIC METABOLIC PANEL,BMP [CHEM] AM C-REACTIVE PROTEIN [CHEM] AM CBC WITH AUTO DIFF [HEME] AM MAGNESIUM [CHEM] AM 12/02/18 21:00 Cholecalciferol (Vitamin D3) [Vitamin D3] 5,000 unit PO DAILY@2100 12/03/18 05:11 BASIC METABOLIC PANEL,BMP [CHEM] AM C-REACTIVE PROTEIN [CHEM] AM CBC WITH AUTO DIFF [HEME] AM MAGNESIUM [CHEM] AM - Plan Plan:: Assessment: Acute: Bilateral LE Cellulitis with Significant Edema, Improving * no diabetes or renal disease * 4-5 days now: red, edema and tightness; improved today * D-dimer insignificant level * Duplex U/S; no DVT or thrombophlebitis U/S * Continue IV Vancomycin for pharmacy to dose * PRN diuretic to relief edema Overweight/Obesity Class I * BMI of 31.7 * Dietary consult for weight management Inadequate IV Access * Central line placed * Hx/o IV Drug Use Chronic: Hx/o IVDU, Heroin and Marijuana Use Plan: He remains clinically stable Routine AM labs Regular diet DVT/GI prophylaxis SW/CM for d/c planning Code status:1 Encouraged to ambulate as tolerated Prognosis is good Additional orders as above Discharge in 2-3 days LOS expect > 96 hrs pending repeat blood cultures
--- NOTE | 2018-12-01 10:38 | PCM.PN ---
- General Info Date of Service: 12/01/18 Admission Dx/Problem (Free Text): Admission Diagnosis/Problem Admission Diagnosis/Problem Cellulitis of both lower extremities Subjective Update: Patient is feeling well today. He slept well last night, and has no complaints of pain. He has been ambulating well. Patient states he is aware of his hepatitis infection, and is interested in seeking treatment. He states that he has not used IV drugs for several years. Functional Status: Reports: Pain Controlled, Tolerating Diet, Ambulating, Urinating - Patient Data Vitals - Most Recent: Last Vital Signs Temp 36.6 C 12/01/18 04:55 Pulse 73 12/01/18 04:55 Resp 16 12/01/18 04:55 BP 123/79 12/01/18 04:55 Pulse Ox 96 12/01/18 04:55 Weight - Most Recent: 109.815 kg I&O - Last 24 Hours: Intake & Output 11/30/18 12/01/18 12/01/18 22:59 06:59 14:59 Intake Total 2300 650 240 Balance 2300 650 240 Lab Results Last 24 Hours: Laboratory Results - last 24 hr 11/30/18 12/01/18 12/01/18 Range/Units 11:11 06:22 06:22 WBC 8.33 (4.23-9.07) K/mm3 RBC 4.86 (4.63-6.08) M/mm3 Hgb 13.7 (13.7-17.5) gm/L Hct 40.3 (40.1-51.0) % MCV 82.9 (79.0-92.2) fl MCH 28.2 (25.7-32.2) pg MCHC 34.0 (32.2-35.5) g/dl RDW Std Deviation 38.6 (35.1-43.9) fL Plt Count 327 (163-337) K/mm3 MPV 8.8 L (9.4-12.3) fl Neut % (Auto) 60.2 (34.0-67.9) % Lymph % (Auto) 22.6 (21.8-53.1) % [place] % (Auto) 12.1 (5.3-12.2) % Eos % (Auto) 4.0 (0.8-7.0) Baso % (Auto) 0.4 (0.1-1.2) % Neut # (Auto) 5.02 (1.78-5.38) K/mm3 Lymph # (Auto) 1.88 (1.32-3.57) K/mm3 [place] # (Auto) 1.01 H (0.30-0.82) K/mm3 Eos # (Auto) 0.33 (0.04-0.54) K/mm3 Baso # (Auto) 0.03 (0.01-0.08) K/mm3 Sodium 138 (136-145) mEq/L Potassium 4.3 (3.5-5.1) mEq/L Chloride 104 (98-107) mEq/L Carbon Dioxide 29 (21-32) mEq/L Anion Gap 9.3 (5-15) BUN 12 (7-18) mg/dL Creatinine 1.0 (0.7-1.3) mg/dL Est Cr Clr Drug Dosing 105.42 mL/min Estimated GFR (MDRD) > 60 (>60) mL/min BUN/Creatinine Ratio 12.0 L (14-18) Glucose 100 (74-106) mg/dL Hemoglobin A1c (4.50-6.20) % Calcium 9.1 (8.5-10.1) mg/dL Magnesium 1.9 (1.8-2.4) mg/dl C-Reactive Protein 1.1 H* (<1.0) mg/dL Vitamin D 25-Hydroxy 14.2 L (30.0-100.0) ng/ml TSH 3rd Generation 1.525 (0.358-3.74) uIU/mL Vancomycin Trough 16.2 (10.0-20.0) 12/01/18 Range/Units 06:22 WBC (4.23-9.07) K/mm3 RBC (4.63-6.08) M/mm3 Hgb (13.7-17.5) gm/L Hct (40.1-51.0) % MCV (79.0-92.2) fl MCH (25.7-32.2) pg MCHC (32.2-35.5) g/dl RDW Std Deviation (35.1-43.9) fL Plt Count (163-337) K/mm3 MPV (9.4-12.3) fl Neut % (Auto) (34.0-67.9) % Lymph % (Auto) (21.8-53.1) % [place] % (Auto) (5.3-12.2) % Eos % (Auto) (0.8-7.0) Baso % (Auto) (0.1-1.2) % Neut # (Auto) (1.78-5.38) K/mm3 Lymph # (Auto) (1.32-3.57) K/mm3 [place] # (Auto) (0.30-0.82) K/mm3 Eos # (Auto) (0.04-0.54) K/mm3 Baso # (Auto) (0.01-0.08) K/mm3 Sodium (136-145) mEq/L Potassium (3.5-5.1) mEq/L Chloride (98-107) mEq/L Carbon Dioxide (21-32) mEq/L Anion Gap (5-15) BUN (7-18) mg/dL Creatinine (0.7-1.3) mg/dL Est Cr Clr Drug Dosing mL/min Estimated GFR (MDRD) (>60) mL/min BUN/Creatinine Ratio (14-18) Glucose (74-106) mg/dL Hemoglobin A1c 5.40 (4.50-6.20) % Calcium (8.5-10.1) mg/dL Magnesium (1.8-2.4) mg/dl C-Reactive Protein (<1.0) mg/dL Vitamin D 25-Hydroxy (30.0-100.0) ng/ml TSH 3rd Generation (0.358-3.74) uIU/mL Vancomycin Trough (10.0-20.0) [place] Results Last 24 Hours: Microbiology 11/28/18 17:35 Aerobic Blood Culture - Preliminary Blood - Venous - Lab Draw NO GROWTH AFTER 2 DAYS Anaerobic Blood Culture - Preliminary NO GROWTH AFTER 2 DAYS 11/28/18 16:57 Aerobic Blood Culture - Preliminary Blood - Venous NO GROWTH AFTER 2 DAYS Anaerobic Blood Culture - Preliminary NO GROWTH AFTER 2 DAYS Med Orders - Current: Current Medications Acetaminophen (Tylenol) 650 mg PO Q4H PRN PRN Reason: Pain (Mild 1-3)/fever Last Admin: 12/01/18 05:31 Dose: 650 mg Hydrocodone Bitart/Acetaminophen ([place] 325-5 Mg) 1 tab PO Q4H PRN PRN Reason: Pain (moderate 4-6) Albuterol/Ipratropium (Duoneb 3.0-0.5 Mg/3 Ml) 3 ml NEB Q4H PRN PRN Reason: Shortness Of Breath/wheezing Bisacodyl (Dulcolax) 5 mg PO DAILY PRN PRN Reason: Constipation Cholecalciferol (Vitamin D3) 5,000 unit PO DAILY@2100 [facility] Docusate Sodium (Colace) 100 mg PO BID PRN PRN Reason: Constipation Enoxaparin Sodium (Lovenox) 40 mg SUBCUT DAILY [facility] Last Admin: 12/01/18 08:38 Dose: 40 mg Furosemide (Lasix) 10 mg IVPUSH DAILY [facility] Last Admin: 12/01/18 08:37 Dose: 10 mg Hydralazine HCl (Apresoline) 20 mg IVPUSH Q4H PRN PRN Reason: Hypertension Last Admin: 11/30/18 19:38 Dose: 20 mg Hydromorphone HCl (Dilaudid) 0.5 mg IVPUSH Q2H PRN PRN Reason: Pain (severe 7-10) Promethazine HCl 6.25 mg/ (Sodium Chloride) 50.25 mls @ 100 mls/hr IV Q6H PRN PRN Reason: Nausea/Vomiting Vancomycin HCl 1 gm/ Sodium (Chloride) 250 mls @ 250 mls/hr IV Q8H [facility] Last Admin: 12/01/18 04:53 Dose: 250 mls/hr Lorazepam (Ativan) 1 mg IV Q6H PRN PRN Reason: Anxiety Metoprolol Tartrate (Lopressor) 5 mg IVPUSH Q4H PRN PRN Reason: Tachycardia Last Admin: 11/30/18 20:58 Dose: 5 mg Miscellaneous Information (Remove Patch) 1 ea TRDERM Q24H [facility] Last Admin: 11/30/18 16:46 Dose: 1 ea Nicotine (Habitrol) 21 mg TRDERM Q24H [facility] Last Admin: 11/30/18 16:46 Dose: 21 mg Ondansetron HCl (Zofran) 4 mg IV Q6H PRN PRN Reason: Nausea/Vomiting Pantoprazole Sodium (Protonix) 40 mg PO Q12H [facility] Last Admin: 12/01/18 08:38 Dose: 40 mg Polyethylene Glycol (Miralax) 17 gm PO DAILY PRN PRN Reason: Constipation Senna/Docusate Sodium (Senna Plus) 1 tab PO BID PRN PRN Reason: Constipation Last Admin: 11/29/18 06:40 Dose: 1 tab Sodium Chloride (Saline Flush) 10 ml FLUSH ASDIRECTED PRN PRN Reason: Keep Vein Open Last Admin: 11/28/18 12:14 Dose: 10 ml Temazepam (Restoril) 15 mg PO BEDTIME PRN PRN Reason: Sleep Vancomycin HCl (Pharmacy To Dose - Vancomycin) 0 dose .XX ASDIRECTED PRN PRN Reason: RX TO DOSE VANCO Discontinued Medications Acetaminophen (Tylenol) 975 mg PO ONETIME ONE Stop: 11/28/18 11:10 Last Admin: 11/28/18 12:12 Dose: 975 mg Fentanyl (Sublimaze) 100 mcg IVPUSH ONETIME ONE Stop: 11/28/18 13:38 Last Admin: 11/28/18 14:28 Dose: 100 mcg Furosemide (Lasix) 40 mg IVPUSH NOW ONE Stop: 11/28/18 10:53 Last Admin: 11/28/18 12:10 Dose: 40 mg Clindamycin Phosphate 900 mg/ (Premix) 50 mls @ 100 mls/hr IV ONETIME ONE Stop: 11/28/18 11:18 Last Admin: 11/28/18 12:12 Dose: 100 mls/hr Vancomycin HCl 2 gm/ Sodium (Chloride) 250 mls @ 250 mls/hr IV ONETIME ONE Stop: 11/28/18 11:50 Last Admin: 11/28/18 12:40 Dose: Not Given Vancomycin HCl 2 gm/ Sodium (Chloride) 500 mls @ 250 mls/hr IV ONETIME ONE Stop: 11/28/18 14:29 Last Admin: 11/28/18 13:00 Dose: 250 mls/hr Lactated Ringer's (Ringers, Lactated) 1,000 mls @ 125 mls/hr IV ASDIRECTED [facility] Last Admin: 11/29/18 04:32 Dose: 125 mls/hr Vancomycin HCl 500 mg/ Sodium (Chloride) 250 mls @ 166.667 mls/hr IV Q12H [facility] Last Admin: 11/28/18 17:49 Dose: Not Given Vancomycin HCl 1.25 gm/ Sodium (Chloride) 250 mls @ 166.667 mls/hr IV Q8H [facility] Last Admin: 11/30/18 03:20 Dose: 125 mls/hr Lidocaine/Epinephrine (Xylocaine 1% With Epinephrine 1:100,000) Confirm Administered Dose 20 ml .ROUTE .STK-MED ONE Stop: 11/28/18 14:09 Last Admin: 11/28/18 14:15 Dose: 20 ml Lidocaine/Epinephrine (Xylocaine 1% With Epinephrine 1:100,000) 20 ml INJECT ONETIME ONE Stop: 11/28/18 14:38 Last Admin: 11/28/18 14:37 Dose: Not Given Midazolam HCl (Versed 1 Mg/Ml) 5 mg IVPUSH ONETIME ONE Stop: 11/28/18 13:38 Last Admin: 11/28/18 14:28 Dose: Not Given Midazolam HCl (Versed 1 Mg/Ml) Confirm Administered Dose 4 mg .ROUTE .STK-MED ONE Stop: 11/28/18 13:44 Last Admin: 11/28/18 14:27 Dose: 4 mg Pantoprazole Sodium (Protonix Iv) 40 mg IV Q12HR [facility] Last Admin: 11/29/18 09:34 Dose: 40 mg - My Orders Last 24 Hours: My Active Orders 11/30/18 13:00 Vancomycin 1 gm Sodium Chloride 0.9% [Normal Saline] 250 ml IV Q8H 11/30/18 15:30 Remove Patch 1 ea TRDERM Q24H 11/30/18 15:54 Metoprolol Tartrate [Lopressor] 5 mg IVPUSH Q4H PRN hydrALAZINE [Apresoline] 20 mg IVPUSH Q4H PRN 12/02/18 04:30 VANCOMYCIN TROUGH [CHEM] Timed 12/02/18 05:11 BASIC METABOLIC PANEL,BMP [CHEM] AM C-REACTIVE PROTEIN [CHEM] AM CBC WITH AUTO DIFF [HEME] AM MAGNESIUM [CHEM] AM 12/02/18 21:00 Cholecalciferol (Vitamin D3) [Vitamin D3] 5,000 unit PO DAILY@2100 12/03/18 05:11 BASIC METABOLIC PANEL,BMP [CHEM] AM C-REACTIVE PROTEIN [CHEM] AM CBC WITH AUTO DIFF [HEME] AM MAGNESIUM [CHEM] AM - Plan Plan:: Assessment: Acute: Bilateral LE cellulitis with significant edema * no diabetes or renal disease * 4-5 days now: red, edema and tightness; improved today * D-dimer insignificant level * Duplex U/S; no DVT or thrombophlebitis U/S * Continue IV Vancomycin for pharmacy to dose * PRN diuretic to relief edema Overweight/obesity class I * BMI of 31.7 * Dietary consult for weight management Inadequate IV access * Central line placed * Hx/o IV drug abuse Chronic: Hx/o IVDU, Heroin and Marijuana Use Plan: He is clinically stable. Afebrile w/o leukocytosis. He has been ambulating w/o difficulties Routine AM labs Regular diet Activity as tolerated DVT/GI prophylaxis SW/CM for d/c planning Code status:1 Encouraged to ambulate as tolerated Prognosis is guarded-serious Additional orders as above LOS expect > 96 hrs pending repeat blood cultures
[2018-12-01] MEDS: Nicotine 21 MG/24 Hr Patch TRDERM SCH (14:58)
--- NOTE | 2018-12-01 18:15 | PCM.PN ---
- General Info Date of Service: 12/01/18 Admission Dx/Problem (Free Text): Admission Diagnosis/Problem Admission Diagnosis/Problem Cellulitis of both lower extremities Subjective Update: Follow up Functional Status: Reports: Pain Controlled, Tolerating Diet, Ambulating, Urinating. Denies: New Symptoms - Review of Systems General: Denies: Fever, Weakness, Fatigue, Malaise, Chills HEENT: Reports: No Symptoms Pulmonary: Denies: Shortness of Breath Cardiovascular: Reports: Edema. Denies: Chest Pain, Dyspnea on Exertion, Lightheadedness Gastrointestinal: Denies: Abdominal Pain, Decreased Appetite, Nausea, Vomiting Genitourinary: Reports: No Symptoms Musculoskeletal: Reports: No Symptoms Skin: Denies: Diaphoresis, Bruising Neurological: Denies: Confusion, Difficulty Walking, Weakness, Gait Disturbance Psychiatric: Denies: Depression, Anxiety, Agitation, Hallucinations Systems Review Comment:: Had an uneventful night. No acute issues or new complaints. His Vit D level is low. - Patient Data Vitals - Most Recent: Last Vital Signs Temp 36.8 C 12/01/18 15:00 Pulse 83 12/01/18 15:00 Resp 20 12/01/18 15:00 BP 133/81 12/01/18 15:00 Pulse Ox 96 12/01/18 15:00 Weight - Most Recent: 109.815 kg I&O - Last 24 Hours: Intake & Output 12/01/18 12/01/18 12/01/18 06:59 14:59 22:59 Intake Total 284 617 2180 Balance 885 305 3765 Lab Results Last 24 Hours: Laboratory Results - last 24 hr 12/01/18 12/01/18 12/01/18 Range/Units 06:22 06:22 06:22 WBC 8.33 (4.23-9.07) K/mm3 RBC 4.86 (4.63-6.08) M/mm3 Hgb 13.7 (13.7-17.5) gm/L Hct 40.3 (40.1-51.0) % MCV 82.9 (79.0-92.2) fl MCH 28.2 (25.7-32.2) pg MCHC 34.0 (32.2-35.5) g/dl RDW Std Deviation 38.6 (35.1-43.9) fL Plt Count 327 (163-337) K/mm3 MPV 8.8 L (9.4-12.3) fl Neut % (Auto) 60.2 (34.0-67.9) % Lymph % (Auto) 22.6 (21.8-53.1) % [place] % (Auto) 12.1 (5.3-12.2) % Eos % (Auto) 4.0 (0.8-7.0) Baso % (Auto) 0.4 (0.1-1.2) % Neut # (Auto) 5.02 (1.78-5.38) K/mm3 Lymph # (Auto) 1.88 (1.32-3.57) K/mm3 [place] # (Auto) 1.01 H (0.30-0.82) K/mm3 Eos # (Auto) 0.33 (0.04-0.54) K/mm3 Baso # (Auto) 0.03 (0.01-0.08) K/mm3 Sodium 138 (136-145) mEq/L Potassium 4.3 (3.5-5.1) mEq/L Chloride 104 (98-107) mEq/L Carbon Dioxide 29 (21-32) mEq/L Anion Gap 9.3 (5-15) BUN 12 (7-18) mg/dL Creatinine 1.0 (0.7-1.3) mg/dL Est Cr Clr Drug Dosing 105.42 mL/min Estimated GFR (MDRD) > 60 (>60) mL/min BUN/Creatinine Ratio 12.0 L (14-18) Glucose 100 (74-106) mg/dL Hemoglobin A1c 5.40 (4.50-6.20) % Calcium 9.1 (8.5-10.1) mg/dL Magnesium 1.9 (1.8-2.4) mg/dl C-Reactive Protein 1.1 H* (<1.0) mg/dL Vitamin D 25-Hydroxy 14.2 L (30.0-100.0) ng/ml TSH 3rd Generation 1.525 (0.358-3.74) uIU/mL [place] Results Last 24 Hours: Microbiology 11/28/18 17:35 Aerobic Blood Culture - Preliminary Blood - Venous - Lab Draw NO GROWTH AFTER 2 DAYS Anaerobic Blood Culture - Preliminary NO GROWTH AFTER 2 DAYS 08/21/19 16:57 Aerobic Blood Culture - Preliminary Blood - Venous NO GROWTH AFTER 2 DAYS Anaerobic Blood Culture - Preliminary NO GROWTH AFTER 2 DAYS Med Orders - Current: Current Medications Acetaminophen (Tylenol) 650 mg PO Q4H PRN PRN Reason: Pain (Mild 1-3)/fever Last Admin: 12/01/18 05:31 Dose: 650 mg Hydrocodone Bitart/Acetaminophen ([place] 325-5 Mg) 1 tab PO Q4H PRN PRN Reason: Pain (moderate 4-6) Albuterol/Ipratropium (Duoneb 3.0-0.5 Mg/3 Ml) 3 ml NEB Q4H PRN PRN Reason: Shortness Of Breath/wheezing Bisacodyl (Dulcolax) 5 mg PO DAILY PRN PRN Reason: Constipation Cholecalciferol (Vitamin D3) 5,000 unit PO DAILY@2100 [facility] Docusate Sodium (Colace) 100 mg PO BID PRN PRN Reason: Constipation Enoxaparin Sodium (Lovenox) 40 mg SUBCUT DAILY [facility] Last Admin: 12/01/18 08:38 Dose: 40 mg Furosemide (Lasix) 10 mg IVPUSH DAILY [facility] Last Admin: 12/01/18 08:37 Dose: 10 mg Hydralazine HCl (Apresoline) 20 mg IVPUSH Q4H PRN PRN Reason: Hypertension Last Admin: 11/30/18 19:38 Dose: 20 mg Hydromorphone HCl (Dilaudid) 0.5 mg IVPUSH Q2H PRN PRN Reason: Pain (severe 7-10) Promethazine HCl 6.25 mg/ (Sodium Chloride) 50.25 mls @ 100 mls/hr IV Q6H PRN PRN Reason: Nausea/Vomiting Vancomycin HCl 1 gm/ Sodium (Chloride) 250 mls @ 250 mls/hr IV Q8H [facility] Last Admin: 12/01/18 12:27 Dose: 250 mls/hr Lorazepam (Ativan) 1 mg IV Q6H PRN PRN Reason: Anxiety Metoprolol Tartrate (Lopressor) 5 mg IVPUSH Q4H PRN PRN Reason: Tachycardia Last Admin: 11/30/18 20:58 Dose: 5 mg Miscellaneous Information (Remove Patch) 1 ea TRDERM Q24H [facility] Last Admin: 12/01/18 14:58 Dose: 1 ea Nicotine (Habitrol) 21 mg TRDERM Q24H [facility] Last Admin: 12/01/18 14:58 Dose: 21 mg Ondansetron HCl (Zofran) 4 mg IV Q6H PRN PRN Reason: Nausea/Vomiting Pantoprazole Sodium (Protonix) 40 mg PO Q12H [facility] Last Admin: 12/01/18 08:38 Dose: 40 mg Polyethylene Glycol (Miralax) 17 gm PO DAILY PRN PRN Reason: Constipation Senna/Docusate Sodium (Senna Plus) 1 tab PO BID PRN PRN Reason: Constipation Last Admin: 11/29/18 06:40 Dose: 1 tab Sodium Chloride (Saline Flush) 10 ml FLUSH ASDIRECTED PRN PRN Reason: Keep Vein Open Last Admin: 11/28/18 12:14 Dose: 10 ml Temazepam (Restoril) 15 mg PO BEDTIME PRN PRN Reason: Sleep Vancomycin HCl (Pharmacy To Dose - Vancomycin) 0 dose .XX ASDIRECTED PRN PRN Reason: RX TO DOSE VANCO Discontinued Medications Acetaminophen (Tylenol) 975 mg PO ONETIME ONE Stop: 11/28/18 11:10 Last Admin: 11/28/18 12:12 Dose: 975 mg Fentanyl (Sublimaze) 100 mcg IVPUSH ONETIME ONE Stop: 11/28/18 13:38 Last Admin: 11/28/18 14:28 Dose: 100 mcg Furosemide (Lasix) 40 mg IVPUSH NOW ONE Stop: 11/28/18 10:53 Last Admin: 11/28/18 12:10 Dose: 40 mg Clindamycin Phosphate 900 mg/ (Premix) 50 mls @ 100 mls/hr IV ONETIME ONE Stop: 11/28/18 11:18 Last Admin: 11/28/18 12:12 Dose: 100 mls/hr Vancomycin HCl 2 gm/ Sodium (Chloride) 250 mls @ 250 mls/hr IV ONETIME ONE Stop: 11/28/18 11:50 Last Admin: 11/28/18 12:40 Dose: Not Given Vancomycin HCl 2 gm/ Sodium (Chloride) 500 mls @ 250 mls/hr IV ONETIME ONE Stop: 11/28/18 14:29 Last Admin: 11/28/18 13:00 Dose: 250 mls/hr Lactated Ringer's (Ringers, Lactated) 1,000 mls @ 125 mls/hr IV ASDIRECTED [facility] Last Admin: 11/29/18 04:32 Dose: 125 mls/hr Vancomycin HCl 500 mg/ Sodium (Chloride) 250 mls @ 166.667 mls/hr IV Q12H [facility] Last Admin: 11/28/18 17:49 Dose: Not Given Vancomycin HCl 1.25 gm/ Sodium (Chloride) 250 mls @ 166.667 mls/hr IV Q8H [facility] Last Admin: 11/30/18 03:20 Dose: 125 mls/hr Lidocaine/Epinephrine (Xylocaine 1% With Epinephrine 1:100,000) Confirm Administered Dose 20 ml .ROUTE .STK-MED ONE Stop: 11/28/18 14:09 Last Admin: 11/28/18 14:15 Dose: 20 ml Lidocaine/Epinephrine (Xylocaine 1% With Epinephrine 1:100,000) 20 ml INJECT ONETIME ONE Stop: 11/28/18 14:38 Last Admin: 11/28/18 14:37 Dose: Not Given Midazolam HCl (Versed 1 Mg/Ml) 5 mg IVPUSH ONETIME ONE Stop: 11/28/18 13:38 Last Admin: 11/28/18 14:28 Dose: Not Given Midazolam HCl (Versed 1 Mg/Ml) Confirm Administered Dose 4 mg .ROUTE .STK-MED ONE Stop: 11/28/18 13:44 Last Admin: 11/28/18 14:27 Dose: 4 mg Pantoprazole Sodium (Protonix Iv) 40 mg IV Q12HR [facility] Last Admin: 11/29/18 09:34 Dose: 40 mg - Exam General: Alert, Oriented, Cooperative, No Acute Distress HEENT: Pupils Equal, Pupils Reactive, EOMI, Mucous Membr. Moist/[place] Neck: Supple Lungs: Clear to Auscultation, Normal Respiratory Effort Cardiovascular: Regular Rate, Regular Rhythm GI/Abdominal Exam: Normal Bowel Sounds, Soft, Non-Tender, No Organomegaly, No Distention, No Abnormal Bruit (Male) Exam: Deferred Back Exam: Normal Inspection, Full Range of Motion Extremities: Normal Range of Motion, Normal Capillary Refill, Pedal Edema, Redness (continues to improved), Other (leg edema: continues to improve) Peripheral Pulses: 1+: Dorsalis Pedis (L), Dorsalis Pedis (R) Skin: Warm, Dry, Intact Wound/Incisions: Erythema Improving Neurological: No New Focal Deficit, Normal Gait Psy/Mental Status: Alert, Normal Affect, Normal Mood - Problem List Review Problem List Initiated/Reviewed/Updated: Yes - My Orders Last 24 Hours: My Active Orders 12/02/18 04:30 VANCOMYCIN TROUGH [CHEM] Timed 12/02/18 05:11 BASIC METABOLIC PANEL,BMP [CHEM] AM C-REACTIVE PROTEIN [CHEM] AM CBC WITH AUTO DIFF [HEME] AM MAGNESIUM [CHEM] AM 12/02/18 21:00 Cholecalciferol (Vitamin D3) [Vitamin D3] 5,000 unit PO DAILY@2100 12/03/18 05:11 BASIC METABOLIC PANEL,BMP [CHEM] AM C-REACTIVE PROTEIN [CHEM] AM CBC WITH AUTO DIFF [HEME] AM MAGNESIUM [CHEM] AM - Plan Plan:: Assessment: Acute: Bilateral LE Cellulitis with Significant Edema, Improving * no diabetes or renal disease * 4-5 days now: red, edema and tightness; improved today * D-dimer insignificant level * Duplex U/S; no DVT or thrombophlebitis U/S * Continue IV Vancomycin for pharmacy to dose * PRN diuretic to relief edema Overweight/Obesity Class I * BMI of 31.7 * Dietary consult for weight management Inadequate IV Access * Central line placed * Hx/o IV Drug Use Vitamin D Deficiency * Vit D level 14.2 is low * Oral Supplement daily Hep C Infection * Likely from hx/o IDU * Informed patient there his infection is now curable * Advised for see ID or GI for treatment Chronic: Hx/o IVDU, Heroin and Marijuana Use Plan: He remains clinically stable Routine AM labs Regular diet DVT/GI prophylaxis SW/CM for d/c planning Code status:1 Encouraged to ambulate as tolerated Prognosis is good Additional orders as above Discharge in a couple of days LOS expect > 96 hrs pending repeat blood cultures
--- NOTE | 2018-12-02 07:45 | PCM.PN ---
- General Info Date of Service: 12/02/18 Admission Dx/Problem (Free Text): Admission Diagnosis/Problem Admission Diagnosis/Problem Cellulitis of both lower extremities Subjective Update: Follow up Functional Status: Reports: Pain Controlled, Tolerating Diet, Ambulating, Urinating - Review of Systems General: Denies: Fever, Weakness, Fatigue, Malaise, Chills, Night Sweats HEENT: Reports: No Symptoms Pulmonary: Denies: Shortness of Breath Cardiovascular: Denies: Chest Pain, Dyspnea on Exertion, Orthopnea, PND Gastrointestinal: Denies: Abdominal Pain, Nausea, Vomiting Genitourinary: Reports: No Symptoms Musculoskeletal: Reports: No Symptoms Skin: Reports: Cyanosis Neurological: Denies: Confusion, Numbness, Tingling, Tremors, Difficulty Walking , Weakness, Gait Disturbance Psychiatric: Denies: Depression, Mood Lability, Anxiety, Cravings, Hallucinations, Suicidal Ideation, Homicidal Ideation Systems Review Comment:: No overnight issues. He rested well and no complaints. However his heart rates jump in the 120s-130 when he gets up but comes back down to the normal range. His thyroid panel is normal and blood pressures have been really good. - Patient Data Vitals - Most Recent: Last Vital Signs Temp 36.5 C 12/02/18 04:09 Pulse 86 12/02/18 04:09 Resp 14 12/02/18 04:09 BP 123/62 12/02/18 04:09 Pulse Ox 94 L 12/02/18 04:09 Weight - Most Recent: 105.506 kg I&O - Last 24 Hours: Intake & Output 12/01/18 12/02/18 12/02/18 22:59 06:59 14:59 Intake Total 1370 1050 Balance 1370 1050 Lab Results Last 24 Hours: Laboratory Results - last 24 hr 12/01/18 12/02/18 12/02/18 Range/Units 06:22 06:05 06:12 WBC 8.41 (4.23-9.07) K/mm3 RBC 5.21 (4.63-6.08) M/mm3 Hgb 14.8 (13.7-17.5) gm/L Hct 42.6 (40.1-51.0) % MCV 81.8 (79.0-92.2) fl MCH 28.4 (25.7-32.2) pg MCHC 34.7 (32.2-35.5) g/dl RDW Std Deviation 38.0 (35.1-43.9) fL Plt Count 307 (163-337) K/mm3 MPV 8.7 L (9.4-12.3) fl Neut % (Auto) 59.1 (34.0-67.9) % Lymph % (Auto) 24.3 (21.8-53.1) % [place] % (Auto) 11.4 (5.3-12.2) % Eos % (Auto) 4.0 (0.8-7.0) Baso % (Auto) 0.7 (0.1-1.2) % Neut # (Auto) 4.97 (1.78-5.38) K/mm3 Lymph # (Auto) 2.04 (1.32-3.57) K/mm3 [place] # (Auto) 0.96 H (0.30-0.82) K/mm3 Eos # (Auto) 0.34 (0.04-0.54) K/mm3 Baso # (Auto) 0.06 (0.01-0.08) K/mm3 Sodium (136-145) mEq/L Potassium (3.5-5.1) mEq/L Chloride (98-107) mEq/L Carbon Dioxide (21-32) mEq/L Anion Gap (5-15) BUN (7-18) mg/dL Creatinine (0.7-1.3) mg/dL Est Cr Clr Drug Dosing mL/min Estimated GFR (MDRD) (>60) mL/min BUN/Creatinine Ratio (14-18) Glucose (74-106) mg/dL Hemoglobin A1c 5.40 (4.50-6.20) % Calcium (8.5-10.1) mg/dL Magnesium (1.8-2.4) mg/dl C-Reactive Protein (<1.0) mg/dL Vancomycin Trough 11.2 (10.0-20.0) 12/02/18 Range/Units 06:12 WBC (4.23-9.07) K/mm3 RBC (4.63-6.08) M/mm3 Hgb (13.7-17.5) gm/L Hct (40.1-51.0) % MCV (79.0-92.2) fl MCH (25.7-32.2) pg MCHC (32.2-35.5) g/dl RDW Std Deviation (35.1-43.9) fL Plt Count (163-337) K/mm3 MPV (9.4-12.3) fl Neut % (Auto) (34.0-67.9) % Lymph % (Auto) (21.8-53.1) % [place] % (Auto) (5.3-12.2) % Eos % (Auto) (0.8-7.0) Baso % (Auto) (0.1-1.2) % Neut # (Auto) (1.78-5.38) K/mm3 Lymph # (Auto) (1.32-3.57) K/mm3 [place] # (Auto) (0.30-0.82) K/mm3 Eos # (Auto) (0.04-0.54) K/mm3 Baso # (Auto) (0.01-0.08) K/mm3 Sodium 137 (136-145) mEq/L Potassium 4.3 (3.5-5.1) mEq/L Chloride 103 (98-107) mEq/L Carbon Dioxide 28 (21-32) mEq/L Anion Gap 10.3 (5-15) BUN 13 (7-18) mg/dL Creatinine 0.9 (0.7-1.3) mg/dL Est Cr Clr Drug Dosing 117.14 mL/min Estimated GFR (MDRD) > 60 (>60) mL/min BUN/Creatinine Ratio 14.4 (14-18) Glucose 102 (74-106) mg/dL Hemoglobin A1c (4.50-6.20) % Calcium 8.9 (8.5-10.1) mg/dL Magnesium 1.9 (1.8-2.4) mg/dl C-Reactive Protein 0.7 (<1.0) mg/dL Vancomycin Trough (10.0-20.0) [place] Results Last 24 Hours: Microbiology 11/28/18 17:35 Aerobic Blood Culture - Preliminary Blood - Venous - Lab Draw NO GROWTH AFTER 3 DAYS Anaerobic Blood Culture - Preliminary NO GROWTH AFTER 3 DAYS 11/28/18 16:57 Aerobic Blood Culture - Preliminary Blood - Venous NO GROWTH AFTER 3 DAYS Anaerobic Blood Culture - Preliminary NO GROWTH AFTER 3 DAYS Med Orders - Current: Current Medications Acetaminophen (Tylenol) 650 mg PO Q4H PRN PRN Reason: Pain (Mild 1-3)/fever Last Admin: 12/01/18 05:31 Dose: 650 mg Hydrocodone Bitart/Acetaminophen ([place] 325-5 Mg) 1 tab PO Q4H PRN PRN Reason: Pain (moderate 4-6) Albuterol/Ipratropium (Duoneb 3.0-0.5 Mg/3 Ml) 3 ml NEB Q4H PRN PRN Reason: Shortness Of Breath/wheezing Bisacodyl (Dulcolax) 5 mg PO DAILY PRN PRN Reason: Constipation Cholecalciferol (Vitamin D3) 5,000 unit PO DAILY@2100 [facility] Docusate Sodium (Colace) 100 mg PO BID PRN PRN Reason: Constipation Enoxaparin Sodium (Lovenox) 40 mg SUBCUT DAILY [facility] Last Admin: 12/01/18 08:38 Dose: 40 mg Furosemide (Lasix) 10 mg IVPUSH DAILY [facility] Last Admin: 12/01/18 08:37 Dose: 10 mg Hydralazine HCl (Apresoline) 20 mg IVPUSH Q4H PRN PRN Reason: Hypertension Last Admin: 11/30/18 19:38 Dose: 20 mg Hydromorphone HCl (Dilaudid) 0.5 mg IVPUSH Q2H PRN PRN Reason: Pain (severe 7-10) Promethazine HCl 6.25 mg/ (Sodium Chloride) 50.25 mls @ 100 mls/hr IV Q6H PRN PRN Reason: Nausea/Vomiting Vancomycin HCl 1 gm/ Sodium (Chloride) 250 mls @ 250 mls/hr IV Q8H [facility] Last Admin: 12/02/18 06:04 Dose: 250 mls/hr Lorazepam (Ativan) 1 mg IV Q6H PRN PRN Reason: Anxiety Metoprolol Tartrate (Lopressor) 5 mg IVPUSH Q4H PRN PRN Reason: Tachycardia Last Admin: 11/30/18 20:58 Dose: 5 mg Metoprolol Tartrate (Lopressor) 25 mg PO Q12H [facility] Miscellaneous Information (Remove Patch) 1 ea TRDERM Q24H [facility] Last Admin: 12/01/18 14:58 Dose: 1 ea Nicotine (Habitrol) 21 mg TRDERM Q24H [facility] Last Admin: 12/01/18 14:58 Dose: 21 mg Ondansetron HCl (Zofran) 4 mg IV Q6H PRN PRN Reason: Nausea/Vomiting Pantoprazole Sodium (Protonix) 40 mg PO Q12H [facility] Last Admin: 12/01/18 20:07 Dose: 40 mg Polyethylene Glycol (Miralax) 17 gm PO DAILY PRN PRN Reason: Constipation Senna/Docusate Sodium (Senna Plus) 1 tab PO BID PRN PRN Reason: Constipation Last Admin: 11/29/18 06:40 Dose: 1 tab Sodium Chloride (Saline Flush) 10 ml FLUSH ASDIRECTED PRN PRN Reason: Keep Vein Open Last Admin: 11/28/18 12:14 Dose: 10 ml Temazepam (Restoril) 15 mg PO BEDTIME PRN PRN Reason: Sleep Vancomycin HCl (Pharmacy To Dose - Vancomycin) 0 dose .XX ASDIRECTED PRN PRN Reason: RX TO DOSE VANCO Discontinued Medications Acetaminophen (Tylenol) 975 mg PO ONETIME ONE Stop: 11/28/18 11:10 Last Admin: 11/28/18 12:12 Dose: 975 mg Fentanyl (Sublimaze) 100 mcg IVPUSH ONETIME ONE Stop: 11/28/18 13:38 Last Admin: 11/28/18 14:28 Dose: 100 mcg Furosemide (Lasix) 40 mg IVPUSH NOW ONE Stop: 11/28/18 10:53 Last Admin: 11/28/18 12:10 Dose: 40 mg Clindamycin Phosphate 900 mg/ (Premix) 50 mls @ 100 mls/hr IV ONETIME ONE Stop: 11/28/18 11:18 Last Admin: 11/28/18 12:12 Dose: 100 mls/hr Vancomycin HCl 2 gm/ Sodium (Chloride) 250 mls @ 250 mls/hr IV ONETIME ONE Stop: 11/28/18 11:50 Last Admin: 11/28/18 12:40 Dose: Not Given Vancomycin HCl 2 gm/ Sodium (Chloride) 500 mls @ 250 mls/hr IV ONETIME ONE Stop: 11/28/18 14:29 Last Admin: 11/28/18 13:00 Dose: 250 mls/hr Lactated Ringer's (Ringers, Lactated) 1,000 mls @ 125 mls/hr IV ASDIRECTED [facility] Last Admin: 11/29/18 04:32 Dose: 125 mls/hr Vancomycin HCl 500 mg/ Sodium (Chloride) 250 mls @ 166.667 mls/hr IV Q12H [facility] Last Admin: 11/28/18 17:49 Dose: Not Given Vancomycin HCl 1.25 gm/ Sodium (Chloride) 250 mls @ 166.667 mls/hr IV Q8H [facility] Last Admin: 11/30/18 03:20 Dose: 125 mls/hr Lidocaine/Epinephrine (Xylocaine 1% With Epinephrine 1:100,000) Confirm Administered Dose 20 ml .ROUTE .STK-MED ONE Stop: 11/28/18 14:09 Last Admin: 11/28/18 14:15 Dose: 20 ml Lidocaine/Epinephrine (Xylocaine 1% With Epinephrine 1:100,000) 20 ml INJECT ONETIME ONE Stop: 11/28/18 14:38 Last Admin: 11/28/18 14:37 Dose: Not Given Midazolam HCl (Versed 1 Mg/Ml) 5 mg IVPUSH ONETIME ONE Stop: 11/28/18 13:38 Last Admin: 11/28/18 14:28 Dose: Not Given Midazolam HCl (Versed 1 Mg/Ml) Confirm Administered Dose 4 mg .ROUTE .STK-MED ONE Stop: 11/28/18 13:44 Last Admin: 11/28/18 14:27 Dose: 4 mg Pantoprazole Sodium (Protonix Iv) 40 mg IV Q12HR [facility] Last Admin: 11/29/18 09:34 Dose: 40 mg - Exam General: Alert, Oriented, Cooperative, No Acute Distress HEENT: Pupils Equal, Pupils Reactive, EOMI, Mucous Membr. Moist/[place] Neck: Supple Lungs: Clear to Auscultation, Normal Respiratory Effort Cardiovascular: Regular Rate, Regular Rhythm, No Murmurs, Other (port-a-cath on right anterior thorax: surrounding area is edematous, red and tender on palpation) GI/Abdominal Exam: Normal Bowel Sounds, Soft, Non-Tender, No Organomegaly, No Distention, No Abnormal Bruit, No Mass (Male) Exam: Deferred Back Exam: Normal Inspection, Full Range of Motion Extremities: Normal Inspection, Normal Range of Motion, Non-Tender, No Pedal Edema, Normal Capillary Refill, Other (trace edema on bilateral lower etxremity) Peripheral Pulses: 2+: Posterior Tibial (L), Posterior Tibial (R), Dorsalis Pedis (L), Dorsalis Pedis (R) Skin: Warm, Dry, Intact, Other (huge surgical scar on bilateral deltoids) Neurological: No New Focal Deficit, Normal Gait Psy/Mental Status: Alert, Normal Affect, Normal Mood. No: Anxious, Depressed, Agitated, Suicidal Ideation, Homicidal Ideation, Hallucinations, Withdrawal Symptoms - Problem List Review Problem List Initiated/Reviewed/Updated: Yes - My Orders Last 24 Hours: My Active Orders 12/02/18 07:15 Metoprolol Tartrate [Lopressor] 25 mg PO Q12H 12/02/18 21:00 Cholecalciferol (Vitamin D3) [Vitamin D3] 5,000 unit PO DAILY@2100 12/03/18 05:11 BASIC METABOLIC PANEL,BMP [CHEM] AM C-REACTIVE PROTEIN [CHEM] AM CBC WITH AUTO DIFF [HEME] AM MAGNESIUM [CHEM] AM - Plan Plan:: Assessment: Acute: Bilateral LE Cellulitis with Significant Edema * Almost at baseline * No diabetes or renal disease * 4-5 days now: red, edema and tightness; improved today * D-dimer insignificant level * Duplex U/S; no DVT or thrombophlebitis U/S * Continue IV Vancomycin for pharmacy to dose * 2D echo report: LVEF of 60-65%. No RWM abnormality. Aneurysmal Inter-atrial Septum (Benign Variant). No evidence of endocarditis visualized. * PRN diuretic to relief edema Overweight/Obesity Class I * BMI of 31.7 * Dietary consult for weight management Inadequate IV Access with Possible Skin Irritation or Infiltration * Central line placed * Hx/o IV Drug Use * GS evaluation since it was put on by Dr. Lopez Intermittent Tachycardia * Essentially Normal 2D Echo * Metoprolol 25 mg po BID * Thyroid Panel wnl Vitamin D Deficiency * Vit D level 14.2 is low * Continue oral supplement daily Hep C Infection * Likely from hx/o IDU * Informed patient there his infection is now curable * Advised for see ID or GI for treatment Chronic: Hx/o IVDU, Heroin and Marijuana Use Plan: He remains clinically stable Routine AM labs Regular diet DVT/GI prophylaxis SW/CM for d/c planning Code status:1 Encouraged to ambulate as tolerated Prognosis is good Additional orders as above Discharge in a couple of days Possible discharge in AM
[2018-12-02] MEDS: Pantoprazole 40 MG Tab.CR PO SCH ×2 (08:12→20:45)
[2018-12-02] MEDS: Metoprolol Tartrate 25 MG Tab PO SCH ×3 (08:12→20:13)
[2018-12-02] MEDS: Enoxaparin 40 MG/0.4 ML Syringe SUBCUT SCH (08:13)
[2018-12-02] MEDS: Furosemide 20 MG/2 ML VIAL IVPUSH SCH (08:13)
[2018-12-02] MEDS: Nicotine 21 MG/24 Hr Patch TRDERM SCH (16:01)
--- NOTE | 2018-12-02 19:41 | PCM.CONS ---
H&P History of Present Illness - General Date of Service: 12/02/18 Admit Problem/Dx: Admission Diagnosis/Problem Admission Diagnosis/Problem Cellulitis of both lower extremities - History of Present Illness Initial Comments - Free Text/Narative: Pt is a 47 y/o male who is currently hospitalized for treatment of bilateral lower extremity cellulitis. Pt had central line placed for very poor IV access due to IV drug abuse. Pt reports pain at the site for the last 2-3 days, and noted swelling in the area yesterday. Pt reports pain hasn't worsened in the last day. Requested by primary to evaluate central line site. Bilateral Lower Leg Pain Score (Numeric/FACES): 0 - Related Data Allergies/Adverse Reactions: Allergies Allergy/AdvReac Type Severity Reaction Status Date / Time No Known Allergies Allergy Verified 11/28/18 16:42 Home Medications: Home Meds Nicotine [Nicotine Patch] 21 mg TD DAILY #30 patch 11/30/18 [Rx] Past Medical History HEENT History: Reports: Impaired Vision Cardiovascular History: Reports: None Respiratory History: Reports: COPD (Not diagnosed. [id number] history of cigarette smoking however. Suspect cor pulmonale. Severe lower extremity edema) Other Respiratory History: Patient states he does not have COPD but is documented in chart. Gastrointestinal History: Reports: None Genitourinary History: Reports: None Musculoskeletal History: Reports: Fracture Other Musculoskeletal History: R collar bone, right femur left ankle Neurological History: Reports: None Psychiatric History: Reports: Addiction Endocrine/Metabolic History: Reports: None Hematologic History: Reports: None Immunologic History: Reports: None Oncologic (Cancer) History: Reports: None Dermatologic History: Reports: None Other Dermatologic History: bilateral lower leg cellulitis November 2018 - Infectious Disease History Infectious Disease History: Reports: Hepatitis C (Hepatitis C positive when tested today November 28) - Past Surgical History HEENT Surgical History: Reports: Oral Surgery - History Comment History Comment: h/o heroin/opioid addition, 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 Social & Family History - Family History Family Medical History: Noncontributory Endocrine/Metabolic: Reports: Diabetes, type II Oncologic: Reports: Brain, Lung - Tobacco Use Smoking Status *Q: Current Every Day Smoker Years of Tobacco use: 20 Packs/Tins Daily: 1 Second Hand Smoke Exposure: No - Caffeine Use Caffeine Use: Reports: Coffee, Tea Other Caffeine Use: Patient states he drinks coffe and soda but unable to give an answer as to how much - Recreational Drug Use Recreational Drug Use: Yes Drug Use in Last 12 Months: Yes Recreational Drug Type: Reports: Heroin, Methamphetamine Recreational Drug Use Frequency: Weekly - Living Situation & Occupation Living situation: Reports: with Significant Other (Has girlfiend) H&P Review of Systems - Review of Systems: Review Of Systems: See Below Skin: Reports: Other (pain at central line site) Exam - Exam Exam: See Below - Vital Signs Vital Signs: Last Vital Signs Temp 37.2 C 12/02/18 15:51 Pulse 136 H 12/02/18 17:55 Resp 15 12/02/18 15:51 BP 137/90 12/02/18 17:55 Pulse Ox 97 12/02/18 15:51 Weight: 105.506 kg - Exam Quality Assessment: No: Supplemental Oxygen General: Alert, Oriented Lungs: Normal Respiratory Effort Skin: Warm, Dry, Other (central line site with 2cm of surrounding edema and mild erythema. Fibrinous exudate present. No purulence expressed.) - Patient Data Lab Results Last 24 hrs: Laboratory Results - last 24 hr 12/02/18 12/02/18 12/02/18 Range/Units 06:05 06:12 06:12 WBC 8.41 (4.23-9.07) K/mm3 RBC 5.21 (4.63-6.08) M/mm3 Hgb 14.8 (13.7-17.5) gm/L Hct 42.6 (40.1-51.0) % MCV 81.8 (79.0-92.2) fl MCH 28.4 (25.7-32.2) pg MCHC 34.7 (32.2-35.5) g/dl RDW Std Deviation 38.0 (35.1-43.9) fL Plt Count 307 (163-337) K/mm3 MPV 8.7 L (9.4-12.3) fl Neut % (Auto) 59.1 (34.0-67.9) % Lymph % (Auto) 24.3 (21.8-53.1) % [place] % (Auto) 11.4 (5.3-12.2) % Eos % (Auto) 4.0 (0.8-7.0) Baso % (Auto) 0.7 (0.1-1.2) % Neut # (Auto) 4.97 (1.78-5.38) K/mm3 Lymph # (Auto) 2.04 (1.32-3.57) K/mm3 [place] # (Auto) 0.96 H (0.30-0.82) K/mm3 Eos # (Auto) 0.34 (0.04-0.54) K/mm3 Baso # (Auto) 0.06 (0.01-0.08) K/mm3 Sodium 137 (136-145) mEq/L Potassium 4.3 (3.5-5.1) mEq/L Chloride 103 (98-107) mEq/L Carbon Dioxide 28 (21-32) mEq/L Anion Gap 10.3 (5-15) BUN 13 (7-18) mg/dL Creatinine 0.9 (0.7-1.3) mg/dL Est Cr Clr Drug Dosing 117.14 mL/min Estimated GFR (MDRD) > 60 (>60) mL/min BUN/Creatinine Ratio 14.4 (14-18) Glucose 102 (74-106) mg/dL Calcium 8.9 (8.5-10.1) mg/dL Magnesium 1.9 (1.8-2.4) mg/dl C-Reactive Protein 0.7 (<1.0) mg/dL Vancomycin Trough Cancelled Result Diagrams: 12/02/18 06:12 12/02/18 06:12 [place] Results Last 24 hrs: Microbiology 11/28/18 17:35 Aerobic Blood Culture - Preliminary Blood - Venous - Lab Draw NO GROWTH AFTER 4 DAYS Anaerobic Blood Culture - Preliminary NO GROWTH AFTER 4 DAYS 11/28/18 16:57 Aerobic Blood Culture - Preliminary Blood - Venous NO GROWTH AFTER 4 DAYS Anaerobic Blood Culture - Preliminary NO GROWTH AFTER 4 DAYS Consult PN Assessment/Plan Procedures: Procedures CT LUMBAR SPINE W/O DYE (01/01/15) CULTR BACTERIA EXCEPT BLOOD (03/09/15) CULTURE AEROBIC IDENTIFY (03/09/15) DRAINAGE OF SKIN ABSCESS (03/09/15) EMERGENCY DEPT VISIT (03/10/15) EMERGENCY DEPT VISIT (01/01/15) EMERGENCY DEPT VISIT (12/05/14) MICROBE SUSCEPTIBLE DIFFUSE (03/09/15) MICROBE SUSCEPTIBLE DISK (03/09/15) SMEAR GRAM STAIN (03/09/15) THER/PROPH/DIAG INJ SC/IM (03/09/15) URINE BACTERIA CULTURE (03/09/15) X-RAY EXAM L-S SPINE 2/3 VWS (12/04/14) (1) Cellulitis of both lower extremities SNOMED Code(s): 186717906 Code(s): L03.115 - CELLULITIS OF RIGHT LOWER LIMB; L03.116 - CELLULITIS OF LEFT LOWER LIMB Current Visit: Yes (2) Hepatitis C antibody test positive SNOMED Code(s): 371015358 Code(s): R76.8 - OTHER SPECIFIED ABNORMAL IMMUNOLOGICAL FINDINGS IN SERUM Current Visit: Yes Problem List Initiated/Reviewed/Updated: Yes My Orders Last 24 Hours: 47 y/o male with central line in place for treatment of his cellulitis. - Site is not overtly infected at this point, may be inflammatory response from indwelling catheter. - Cleansed with chlorhexidine and new sterile dressing placed on the central line - If site worsens in appearance or becomes more painful, line should be removed. - continue current management per primary. Elida Hwang MD General surgery
[2018-12-02] MEDS ORDERED: Cholecalciferol (Vitamin D3) 5,000 UNIT Tab PO SCH (21:00)
[2018-12-03] MEDS: Metoprolol Tartrate 25 MG Tab PO SCH (06:17)
[2018-12-03] MEDS: Enoxaparin 40 MG/0.4 ML Syringe SUBCUT SCH (09:26)
[2018-12-03] MEDS: Furosemide 20 MG/2 ML VIAL IVPUSH SCH (09:26)
[2018-12-03] MEDS: Pantoprazole 40 MG Tab.CR PO SCH (09:27)
--- NOTE | 2018-12-03 09:57 | PCM.DCSUM1 ---
Discharge Summary - Hospital Course Brief History: This is a 47 yo white male with no significant past medical hx expt for IVD and hx/o heroin and marijuana use who comes in for evaluation of 4- 5 day hx/o increasing leg edema associated with redness and some discomfort. He is not known diabetic and no hx/o renal or hepatic disease. he reports a similar episode a few years ago and resolved after treatment. He denies any signs of systemic infection. He was admitted 11/27/18 for the same problem but left AMA. His initial work up in ED shows a CBC remarkable for Hgb 13.6, Hct of 39.1, Neutrophils 76%, Lymphocytes 18%, glucose 120, CRP 3.9, ESR 48. Patient is coming in primarily for bilateral lower extremity cellulitis. Diagnosis: Stroke: No Modified Saxe Scale: No Symptoms at All Modified Roger Scale Score: 0 - Discharge Data Discharge Date: 12/03/18 Discharge Disposition: Home, Self-Care 01 Condition: Good - Discharge Diagnosis/Problem(s) (1) Cellulitis of both lower extremities SNOMED Code(s): 980702687 ICD Code: L03.115 - CELLULITIS OF RIGHT LOWER LIMB; L03.116 - CELLULITIS OF LEFT LOWER LIMB Status: Acute (2) Encounter for central line placement SNOMED Code(s): 464309205 ICD Code: Z45.2 - ENCOUNTER FOR ADJUSTMENT AND MANAGEMENT OF VAD Status: Acute (3) Vitamin D deficiency SNOMED Code(s): 64785652 ICD Code: E55.9 - VITAMIN D DEFICIENCY, UNSPECIFIED Status: Acute (4) Paroxysmal atrial tachycardia Status: Acute (5) Hepatitis C antibody test positive SNOMED Code(s): 628647301 ICD Code: R76.8 - OTHER SPECIFIED ABNORMAL IMMUNOLOGICAL FINDINGS IN SERUM Status: Chronic (6) Obesity (BMI 30-39.9) SNOMED Code(s): 487473607, 299666287 ICD Code: E66.9 - OBESITY, UNSPECIFIED Status: Chronic (7) Nicotine use disorder SNOMED Code(s): 53077687 ICD Code: F17.200 - NICOTINE DEPENDENCE, UNSPECIFIED, UNCOMPLICATED Status : Chronic - Patient Summary/Data Operative Procedure(s) Performed: None Complications: None Consults: Consultations 11/28/18 16:21 Consult to Case Management/Cardiology Associate [CONS] Routine Consult to Spiritual Care [CONS] Routine OT Evaluation and Treatment [CONS] Routine PT Evaluation and Treatment [CONS] Routine Labs Pending at D/C: None Recommended Follow-up Testing/Procedures: GI or ID for Hep C infection Planned Operative Procedure(s) after DC: None Hospital Course: Patient was primarily admitted for bacteremia 2/2 bilateral lower extremity cellulitis. He was initially hospitalized on 11/26/2018 but left AMA and not able to complete his treatment. However his blood culture at that time grew Staph Intermedius. Unaware of this abnormal finding, we were able to get a hold of him through his mother in [place], [place]. Hence he came back to the hospital for further treatment. On this admission, he received intravenous antibiotics and supportive until his cellulitis completely resolved. He has received IV Vancomycin and he was discharged with additional oral antibiotic to complete a total of 10 day course treatment. His hospital course was uncomplicated but he was diagnosed with Hep C infection and Vitamin D Deficiency during his stay with us. He was discharged with Vit D Supplement and was referred to see ID or GI for his Hep C infection. He was advised to follow up with his PCP and General Surgery after discharge. - Patient Instructions Diet: Usual Diet as Tolerated Activity: As Tolerated Driving: Do Not Drive Showering/Bathing: May Shower Wound/Incision Care: Keep Operative Site/Wound Site Clean and Dry, Change Dressing Daily Notify Provider of: Fever, Increased Pain, Swelling and Redness, Nausea and/or Vomiting Other/Special Instructions: - Please take all new medications as directed. - Resume routine home medications and activity as tolerated. - Follow up with General Surgery for central line acccess site. - Recommend you see ID or GI for Hep C infection. - Follow instructions for maintaining personal hygiene and wound care. - Call or follow up with your doctor for any concerns or issues after discharge. - Follow up with your doctor in 1 week. - Come back or seek immediate care should your symptoms persist or get worse - Discharge Plan *PRESCRIPTION DRUG MONITORING PROGRAM REVIEWED*: Not Applicable *COPY OF PRESCRIPTION DRUG MONITORING REPORT IN PATIENT MATTHEW: Not Applicable Prescriptions/Med Rec: Cephalexin [Keflex] 500 mg PO BID #9 capsule Cholecalciferol (Vitamin D3) [Vitamin D3] 5,000 unit PO DAILY #30 capsule Metoprolol Tartrate 25 mg PO BID #60 tablet Nicotine [Nicotine Patch] 21 mg TD DAILY #30 patch Saccharomyces Boulardii [Florastor] 250 mg PO BID #9 capsule Home Medications: Home Meds Nicotine [Nicotine Patch] 21 mg TD DAILY #30 patch 11/30/18 [Rx] Cephalexin [Keflex] 500 mg PO BID #9 capsule 12/03/18 [Rx] Cholecalciferol (Vitamin D3) [Vitamin D3] 5,000 unit PO DAILY #30 capsule [Rx] Metoprolol Tartrate 25 mg PO BID #60 tablet 12/03/18 [Rx] Saccharomyces Boulardii [Florastor] 250 mg PO BID #9 capsule 12/03/18 [Rx] Patient Handouts: Cellulitis, Adult, [id number], Hepatitis C, [id number], Postural Orthostatic Tachycardia Syndrome, Steps to Quit Smoking, Vitamin D Deficiency, [id number]-Hbdl, Preventing Unhealthy Weight Gain, Adult Referrals: Elida Hwang MD [Physician] - 12/11/18 2:30 pm (Follow-up to have your PICC insertion site evaluated.) Roxana Banegas PA-C [Physician [facility]] - 12/11/18 9:30 am - Discharge Summary/Plan Comment DC Time >30 min.: No Discharge Summary/Plan Comment: Discharge to Home Offered practical counseling on smoking cigarettes. He was counseled about the dangers of smoking and associated health risks. Patient was receptive to the idea of smoking cessation and was discharged with prescription for nicotine patch. Patient was provided reading materials or brochures to help quit smoking. He was advised to call the Quit line and follow up with his PCP after discharge. - General Info Date of Service: 12/03/18 Admission Dx/Problem (Free Text: Admission Diagnosis/Problem Admission Diagnosis/Problem Cellulitis of both lower extremities Subjective Update: Follow up Functional Status: Reports: Pain Controlled, Tolerating Diet, Ambulating, Urinating, New Symptoms. Denies: Incentive Spirometry - Review of Systems General: Denies: Fever, Weakness, Fatigue, Malaise, Chills HEENT: Reports: No Symptoms Pulmonary: Denies: Shortness of Breath, Cough, Sputum Cardiovascular: Denies: Palpitations, Dyspnea on Exertion, Orthopnea, Edema, Lightheadedness Gastrointestinal: Denies: Abdominal Pain, Nausea, Vomiting Genitourinary: Reports: No Symptoms Musculoskeletal: Reports: No Symptoms Skin: Denies: Cyanosis, Pallor, Diaphoresis, Dryness, Bruising, Rash Neurological: Denies: Confusion, Numbness, Seizure, Weakness, Gait Disturbance Psychiatric: Denies: Depression, Mood Lability, Anxiety, Agitation, Cravings, Hallucinations, Suicidal Ideation, Homicidal Ideation Systems Review Comment: No significant overnight or acute issues. He rested well last night. He has no complaints. All his morning labs were essentially unremarkable. - Patient Data Vitals - Most Recent: Last Vital Signs Temp 36.6 C 12/03/18 04:12 Pulse 83 12/03/18 06:17 Resp 14 12/03/18 04:12 BP 118/70 12/03/18 06:17 Pulse Ox 94 L 12/03/18 04:12 Weight - Most Recent: 108.363 kg I&O - Last 24 hours: Intake & Output 12/02/18 12/03/18 12/03/18 22:59 06:59 14:59 Intake Total 830 550 Balance 830 550 Lab Results - Last 24 hrs: Laboratory Results - last 24 hr 12/02/18 12/03/18 12/03/18 Range/Units 06:05 06:40 06:40 WBC 7.74 (4.23-9.07) K/mm3 RBC 5.19 (4.63-6.08) M/mm3 Hgb 14.8 (13.7-17.5) gm/L Hct 42.7 (40.1-51.0) % MCV 82.3 (79.0-92.2) fl MCH 28.5 (25.7-32.2) pg MCHC 34.7 (32.2-35.5) g/dl RDW Std Deviation 38.4 (35.1-43.9) fL Plt Count 292 (163-337) K/mm3 MPV 8.6 L (9.4-12.3) fl Neut % (Auto) 54.4 (34.0-67.9) % Lymph % (Auto) 27.4 (21.8-53.1) % [place] % (Auto) 12.1 (5.3-12.2) % Eos % (Auto) 4.4 (0.8-7.0) Baso % (Auto) 0.9 (0.1-1.2) % Neut # (Auto) 4.21 (1.78-5.38) K/mm3 Lymph # (Auto) 2.12 (1.32-3.57) K/mm3 [place] # (Auto) 0.94 H (0.30-0.82) K/mm3 Eos # (Auto) 0.34 (0.04-0.54) K/mm3 Baso # (Auto) 0.07 (0.01-0.08) K/mm3 Sodium 138 (136-145) mEq/L Potassium 4.5 (3.5-5.1) mEq/L Chloride 104 (98-107) mEq/L Carbon Dioxide 28 (21-32) mEq/L Anion Gap 10.5 (5-15) BUN 14 (7-18) mg/dL Creatinine 1.0 (0.7-1.3) mg/dL Est Cr Clr Drug Dosing 105.42 mL/min Estimated GFR (MDRD) > 60 (>60) mL/min BUN/Creatinine Ratio 14.0 (14-18) Glucose 104 (74-106) mg/dL Calcium 8.4 L (8.5-10.1) mg/dL Magnesium 1.9 (1.8-2.4) mg/dl C-Reactive Protein 0.4 (<1.0) mg/dL Vancomycin Trough Cancelled EL Results - Last 24 hrs: Microbiology 11/28/18 17:35 Aerobic Blood Culture - Preliminary Blood - Venous - Lab Draw NO GROWTH AFTER 4 DAYS Anaerobic Blood Culture - Preliminary NO GROWTH AFTER 4 DAYS 11/28/18 16:57 Aerobic Blood Culture - Preliminary Blood - Venous NO GROWTH AFTER 4 DAYS Anaerobic Blood Culture - Preliminary NO GROWTH AFTER 4 DAYS Med Orders - Current: Current Medications Acetaminophen (Tylenol) 650 mg PO Q4H PRN PRN Reason: Pain (Mild 1-3)/fever Last Admin: 12/01/18 05:31 Dose: 650 mg Hydrocodone Bitart/Acetaminophen ([place] 325-5 Mg) 1 tab PO Q4H PRN PRN Reason: Pain (moderate 4-6) Albuterol/Ipratropium (Duoneb 3.0-0.5 Mg/3 Ml) 3 ml NEB Q4H PRN PRN Reason: Shortness Of Breath/wheezing Bisacodyl (Dulcolax) 5 mg PO DAILY PRN PRN Reason: Constipation Last Admin: 12/03/18 06:17 Dose: 5 mg Cholecalciferol (Vitamin D3) 5,000 unit PO DAILY@2100 [facility] Last Admin: 12/02/18 20:45 Dose: 5,000 unit Docusate Sodium (Colace) 100 mg PO BID PRN PRN Reason: Constipation Enoxaparin Sodium (Lovenox) 40 mg SUBCUT DAILY [facility] Last Admin: 12/03/18 09:26 Dose: 40 mg Furosemide (Lasix) 10 mg IVPUSH DAILY [facility] Last Admin: 12/03/18 09:26 Dose: 10 mg Hydralazine HCl (Apresoline) 20 mg IVPUSH Q4H PRN PRN Reason: Hypertension Last Admin: 11/30/18 19:38 Dose: 20 mg Hydromorphone HCl (Dilaudid) 0.5 mg IVPUSH Q2H PRN PRN Reason: Pain (severe 7-10) Promethazine HCl 6.25 mg/ (Sodium Chloride) 50.25 mls @ 100 mls/hr IV Q6H PRN PRN Reason: Nausea/Vomiting Vancomycin HCl 1 gm/ Sodium (Chloride) 250 mls @ 250 mls/hr IV Q8H [facility] Last Admin: 12/03/18 04:13 Dose: 250 mls/hr Lorazepam (Ativan) 1 mg IV Q6H PRN PRN Reason: Anxiety Metoprolol Tartrate (Lopressor) 5 mg IVPUSH Q4H PRN PRN Reason: Tachycardia Last Admin: 11/30/18 20:58 Dose: 5 mg Metoprolol Tartrate (Lopressor) 25 mg PO Q12H [facility] Last Admin: 12/03/18 06:17 Dose: 25 mg Miscellaneous Information (Remove Patch) 1 ea TRDERM Q24H [facility] Last Admin: 12/02/18 16:01 Dose: 1 ea Nicotine (Habitrol) 21 mg TRDERM Q24H [facility] Last Admin: 12/02/18 16:01 Dose: 21 mg Ondansetron HCl (Zofran) 4 mg IV Q6H PRN PRN Reason: Nausea/Vomiting Pantoprazole Sodium (Protonix) 40 mg PO Q12H [facility] Last Admin: 12/03/18 09:27 Dose: 40 mg Polyethylene Glycol (Miralax) 17 gm PO DAILY PRN PRN Reason: Constipation Senna/Docusate Sodium (Senna Plus) 1 tab PO BID PRN PRN Reason: Constipation Last Admin: 11/29/18 06:40 Dose: 1 tab Sodium Chloride (Saline Flush) 10 ml FLUSH ASDIRECTED PRN PRN Reason: Keep Vein Open Last Admin: 11/28/18 12:14 Dose: 10 ml Temazepam (Restoril) 15 mg PO BEDTIME PRN PRN Reason: Sleep Vancomycin HCl (Pharmacy To Dose - Vancomycin) 0 dose .XX ASDIRECTED PRN PRN Reason: RX TO DOSE VANCO Discontinued Medications Acetaminophen (Tylenol) 975 mg PO ONETIME ONE Stop: 11/28/18 11:10 Last Admin: 11/28/18 12:12 Dose: 975 mg Fentanyl (Sublimaze) 100 mcg IVPUSH ONETIME ONE Stop: 11/28/18 13:38 Last Admin: 11/28/18 14:28 Dose: 100 mcg Furosemide (Lasix) 40 mg IVPUSH NOW ONE Stop: 11/28/18 10:53 Last Admin: 11/28/18 12:10 Dose: 40 mg Clindamycin Phosphate 900 mg/ (Premix) 50 mls @ 100 mls/hr IV ONETIME ONE Stop: 11/28/18 11:18 Last Admin: 11/28/18 12:12 Dose: 100 mls/hr Vancomycin HCl 2 gm/ Sodium (Chloride) 250 mls @ 250 mls/hr IV ONETIME ONE Stop: 11/28/18 11:50 Last Admin: 11/28/18 12:40 Dose: Not Given Vancomycin HCl 2 gm/ Sodium (Chloride) 500 mls @ 250 mls/hr IV ONETIME ONE Stop: 11/28/18 14:29 Last Admin: 11/28/18 13:00 Dose: 250 mls/hr Lactated Ringer's (Ringers, Lactated) 1,000 mls @ 125 mls/hr IV ASDIRECTED [facility] Last Admin: 11/29/18 04:32 Dose: 125 mls/hr Vancomycin HCl 500 mg/ Sodium (Chloride) 250 mls @ 166.667 mls/hr IV Q12H [facility] Last Admin: 11/28/18 17:49 Dose: Not Given Vancomycin HCl 1.25 gm/ Sodium (Chloride) 250 mls @ 166.667 mls/hr IV Q8H [facility] Last Admin: 11/30/18 03:20 Dose: 125 mls/hr Lidocaine/Epinephrine (Xylocaine 1% With Epinephrine 1:100,000) Confirm Administered Dose 20 ml .ROUTE .STK-MED ONE Stop: 11/28/18 14:09 Last Admin: 11/28/18 14:15 Dose: 20 ml Lidocaine/Epinephrine (Xylocaine 1% With Epinephrine 1:100,000) 20 ml INJECT ONETIME ONE Stop: 11/28/18 14:38 Last Admin: 11/28/18 14:37 Dose: Not Given Midazolam HCl (Versed 1 Mg/Ml) 5 mg IVPUSH ONETIME ONE Stop: 11/28/18 13:38 Last Admin: 11/28/18 14:28 Dose: Not Given Midazolam HCl (Versed 1 Mg/Ml) Confirm Administered Dose 4 mg .ROUTE .STK-MED ONE Stop: 11/28/18 13:44 Last Admin: 11/28/18 14:27 Dose: 4 mg Pantoprazole Sodium (Protonix Iv) 40 mg IV Q12HR [facility] Last Admin: 11/29/18 09:34 Dose: 40 mg - Exam General: Reports: Alert, Oriented, Cooperative, No Acute Distress HEENT: Reports: Pupils Equal, Pupils Reactive, EOMI, Mucous Membr. Moist/[place] Neck: Reports: Supple, Other (IV Access line on right anterior chest) Lungs: Reports: Clear to Auscultation, Normal Respiratory Effort Cardiovascular: Reports: Regular Rate, Regular Rhythm, No Murmurs GI/Abdominal Exam: Normal Bowel Sounds, Soft, Non-Tender, No Organomegaly, No Distention, No Abnormal Bruit, No Mass, Pelvis Stable (Male) Exam: Deferred Rectal (Males) Exam: Deferred Back Exam: Reports: Normal Inspection, Decreased Range of Motion Extremities: Normal Inspection, Normal Range of Motion, Non-Tender, No Pedal Edema, Normal Capillary Refill Skin: Reports: Warm, Dry, Intact Neurological: Reports: No New Focal Deficit Psy/Mental Status: Reports: Alert, Normal Affect, Normal Mood Discharge Operative/Procedures - Procedures Performed CL Indication: IV access
[2018-12-03 15:55] VITALS: BP 145/81
[2018-12-03] MEDS: Nicotine 21 MG/24 Hr Patch TRDERM SCH (17:02)
== END 2018-12-03 15:00 | disposition home or self-care (01) | DRG 603 ==
LOC: JD.ED 09:49 → JD.MS 15:15
PROVIDERS: ADMIT Emergency Medicine; ATTEND Internal Medicine
PROC: 02HV33Z Insertion of Infusion Device into Superior Vena Cava, Percutaneous Approach (ICD-10-PCS; principal; 2018-11-28)
DX: L03.115 Cellulitis of right lower limb (principal); I47.1 Supraventricular tachycardia; F15.20 Other stimulant dependence, uncomplicated; B19.20 Unspecified viral hepatitis C without hepatic coma; L03.116 Cellulitis of left lower limb; E55.9 Vitamin D deficiency, unspecified; J44.9 Chronic obstructive pulmonary disease, unspecified; I48.0 Paroxysmal atrial fibrillation; H54.7 Unspecified visual loss; F17.210 Nicotine dependence, cigarettes, uncomplicated; E66.9 Obesity, unspecified; Z79.2 Long term (current) use of antibiotics; Z79.899 Other long term (current) drug therapy; Z71.6 Tobacco abuse counseling; Z68.31 Body mass index [BMI] 31.0-31.9, adult; Z45.2 Encounter for adjustment and management of vascular access device; Z99.81 Dependence on supplemental oxygen
CPT/HCPCS: 36415; 36556; 36569; 71045; 71045-26; 80048; 80053; 80202; 80306; 81001; 82306; 82962; 83036; 83605; 83735; 83880; 84443; 85007; 85025; 85027; 85379; 85610; 85652; 85730; 86140; 86803; 87040; 93005; 93010; 93306; 93970; 93970-26; 96365; 96366; 96367; 96375; 97161-GP; 97165-GO; 97530-GO; 99285; 99285-25; A9270-GY; C9113; G0433; J0360; J1650; J1940; J2250; J3010; J3370; J3490; J7040; J7050; J7120

== ENCOUNTER 2019-06-25 14:46 | Emergency (ER) | payer MEDICAID, OTHER, SELFPAY ==
[2019-06-25 15:02] VITALS: BP 138/84; PULSE 101
[2019-06-25] MEDS ORDERED: Sodium Chloride 0.9% 10 ML Syringe FLUSH PRN (15:16)
[2019-06-25] MEDS ORDERED: Doxycycline 100 MG Cap PO ONE (17:06)
--- NOTE | 2019-06-25 17:11 | EDM.PDOC ---
ED HPI GENERAL MEDICAL PROBLEM - General Chief Complaint: Lower Extremity Injury/Pain Stated Complaint: R LEG SWELLING Time Seen by Provider: 06/25/19 15:01 Source of Information: Reports: Patient History Limitations: Reports: No Limitations - History of Present Illness INITIAL COMMENTS - FREE TEXT/NARRATIVE: Patient is a 48-year-old male who presents with complaints of edema, warmth and redness to his right lower extremity that started yesterday. He verbalizes that he has a history of cellulitis. The extremity is not painful. He denies any fever, chills, nausea, or vomiting. - Related Data Allergies Allergy/AdvReac Type Severity Reaction Status Date / Time No Known Allergies Allergy Verified 06/25/19 15:02 Home Meds: Home Meds Cholecalciferol (Vitamin D3) [Vitamin D3] 5,000 unit PO DAILY #30 capsule [Rx] Metoprolol Tartrate 25 mg PO BID #60 tablet 12/03/18 [Rx] Doxycycline [Vibramycin] 100 mg PO BID #19 tab 06/25/19 [Rx] Past Medical History HEENT History: Reports: Impaired Vision Cardiovascular History: Reports: None Respiratory History: Reports: COPD Other Respiratory History: Patient states he does not have COPD but is documented in chart. Gastrointestinal History: Reports: None Genitourinary History: Reports: None Musculoskeletal History: Reports: Fracture Other Musculoskeletal History: R collar bone, right femur left ankle Neurological History: Reports: None Psychiatric History: Reports: Addiction Endocrine/Metabolic History: Reports: None Hematologic History: Reports: None Immunologic History: Reports: None Oncologic (Cancer) History: Reports: None Dermatologic History: Reports: None Other Dermatologic History: bilateral lower leg cellulitis November 2018 - Infectious Disease History Infectious Disease History: Reports: Hepatitis C - Past Surgical History HEENT Surgical History: Reports: Oral Surgery - History Comment History Comment: h/o heroin/opioid addition, 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 Social & Family History - Family History Family Medical History: Noncontributory Endocrine/Metabolic: Reports: Diabetes, type II Oncologic: Reports: Brain, Lung - Tobacco Use Smoking Status *Q: Current Every Day Smoker Years of Tobacco use: 20 Packs/Tins Daily: 0.5 - Caffeine Use Caffeine Use: Reports: Coffee, Tea Other Caffeine Use: Patient states he drinks coffe and soda but unable to give an answer as to how much - Recreational Drug Use Recreational Drug Use: Yes Drug Use in Last 12 Months: Yes Recreational Drug Type: Reports: Marijuana/Hashish, Methamphetamine Recreational Drug Use Frequency: Monthly - Living Situation & Occupation Living situation: Reports: with Significant Other (Has girlfiend) Review of Systems - Review of Systems Review Of Systems: Comprehensive ROS is negative, except as noted in HPI. ED EXAM, GENERAL - Physical Exam Exam: See Below Exam Limited By: No Limitations General Appearance: Alert, WD/WN, No Apparent Distress Respiratory/Chest: No Respiratory Distress, Lungs Clear, Normal Breath Sounds, No Accessory Muscle Use, Chest Non-Tender Cardiovascular: Normal Peripheral Pulses, Regular Rate, Rhythm, No Edema, No Gallop, No JVD, No Murmur, No Rub Extremities: Other (Right lower extremity - Erythema and 2+ edema from the ankle to mid calf. Left lower extremitysmall area of erythema to the left anterior calf. 2+ ankle edema.) Neurological: Alert, Oriented, CN II-XII Intact, Normal Cognition, Normal Gait, Normal Reflexes, No Motor/Sensory Deficits Psychiatric: Normal Affect, Normal Mood Skin Exam: Warm, Dry, Intact, Normal Color, No Rash Course - Vital Signs Last Recorded V/S: Last Vital Signs Temp 97.6 F 06/25/19 14:54 Pulse 101 H 06/25/19 14:54 Resp 16 06/25/19 14:54 BP 138/84 06/25/19 14:54 Pulse Ox 98 06/25/19 14:54 - Orders/Labs/Meds Orders: Active Orders 24 hr Category Date Time Status Peripheral IV Care [RC] . DIRECTED Care 06/25/19 15:17 Active CULTURE BLOOD [BC] Stat Lab 06/25/19 15:17 Ordered CULTURE BLOOD [BC] Stat Lab 06/25/19 16:00 Received Sodium Chloride 0.9% [Saline Flush] Med 06/25/19 15:16 Active 10 ml FLUSH ASDIRECTED PRN Blood Culture x2 Reflex Set [OM.PC] Stat Oth 06/25/19 15:17 Ordered Peripheral IV Insertion Adult [OM.PC] Stat Oth 06/25/19 15:16 Ordered Medication Orders Sodium Chloride (Saline Flush) 10 ml FLUSH ASDIRECTED PRN PRN Reason: Keep Vein Open Labs: Laboratory Tests 06/25/19 06/25/19 06/25/19 Range/Units 16:00 16:00 16:00 WBC (4.23-9.07) K/mm3 RBC (4.63-6.08) M/mm3 Hgb (13.7-17.5) gm/dl Hct (40.1-51.0) % MCV (79.0-92.2) fl MCH (25.7-32.2) pg MCHC (32.2-35.5) g/dl RDW Std Deviation (35.1-43.9) fL Plt Count (163-337) K/mm3 MPV (9.4-12.3) fl Neut % (Auto) (34.0-67.9) % Lymph % (Auto) (21.8-53.1) % Sharp % (Auto) (5.3-12.2) % Eos % (Auto) (0.8-7.0) Baso % (Auto) (0.1-1.2) % Neut # (Auto) (1.78-5.38) K/mm3 Lymph # (Auto) (1.32-3.57) K/mm3 Sharp # (Auto) (0.30-0.82) K/mm3 Eos # (Auto) (0.04-0.54) K/mm3 Baso # (Auto) (0.01-0.08) K/mm3 PT 10.4 (9.7-12.0) SECONDS INR 0.95 APTT 23 (22-31) SECONDS D-Dimer, Quantitative 0.36 (0.19-0.50) mg/L Sodium 141 (136-145) mEq/L Potassium 4.5 (3.5-5.1) mEq/L Chloride 107 (98-107) mEq/L Carbon Dioxide 26 (21-32) mEq/L Anion Gap 12.5 (5-15) BUN 19 H (7-18) mg/dL Creatinine 1.0 (0.7-1.3) mg/dL Est Cr Clr Drug Dosing 104.31 mL/min Estimated GFR (MDRD) > 60 (>60) mL/min BUN/Creatinine Ratio 19.0 H (14-18) Glucose 94 (74-106) mg/dL Lactic Acid 0.8 (0.4-2.0) mmol/L Calcium 8.9 (8.5-10.1) mg/dL Total Bilirubin 0.4 (0.2-1.0) mg/dL AST 72 H (15-37) U/L ALT 128 H (16-63) U/L Alkaline Phosphatase 78 (46-116) U/L C-Reactive Protein 0.8 (<1.0) mg/dL Total Protein 7.7 (6.4-8.2) g/dl Albumin 3.4 (3.4-5.0) g/dl Globulin 4.3 gm/dL Albumin/Globulin Ratio 0.8 L (1-2) 06/25/19 Range/Units 16:35 WBC 6.79 (4.23-9.07) K/mm3 RBC 4.75 (4.63-6.08) M/mm3 Hgb 13.7 D (13.7-17.5) gm/dl Hct 40.6 (40.1-51.0) % MCV 85.5 D (79.0-92.2) fl MCH 28.8 (25.7-32.2) pg MCHC 33.7 (32.2-35.5) g/dl RDW Std Deviation 41.3 (35.1-43.9) fL Plt Count 196 D (163-337) K/mm3 MPV 9.6 (9.4-12.3) fl Neut % (Auto) 49.0 (34.0-67.9) % Lymph % (Auto) 31.8 (21.8-53.1) % Sharp % (Auto) 12.7 H (5.3-12.2) % Eos % (Auto) 5.6 (0.8-7.0) Baso % (Auto) 0.6 (0.1-1.2) % Neut # (Auto) 3.33 (1.78-5.38) K/mm3 Lymph # (Auto) 2.16 (1.32-3.57) K/mm3 Sharp # (Auto) 0.86 H (0.30-0.82) K/mm3 Eos # (Auto) 0.38 (0.04-0.54) K/mm3 Baso # (Auto) 0.04 (0.01-0.08) K/mm3 PT (9.7-12.0) SECONDS INR APTT (22-31) SECONDS D-Dimer, Quantitative (0.19-0.50) mg/L Sodium (136-145) mEq/L Potassium (3.5-5.1) mEq/L Chloride (98-107) mEq/L Carbon Dioxide (21-32) mEq/L Anion Gap (5-15) BUN (7-18) mg/dL Creatinine (0.7-1.3) mg/dL Est Cr Clr Drug Dosing mL/min Estimated GFR (MDRD) (>60) mL/min BUN/Creatinine Ratio (14-18) Glucose (74-106) mg/dL Lactic Acid (0.4-2.0) mmol/L Calcium (8.5-10.1) mg/dL Total Bilirubin (0.2-1.0) mg/dL AST (15-37) U/L ALT (16-63) U/L Alkaline Phosphatase (46-116) U/L C-Reactive Protein (<1.0) mg/dL Total Protein (6.4-8.2) g/dl Albumin (3.4-5.0) g/dl Globulin gm/dL Albumin/Globulin Ratio (1-2) Meds: Medications Generic Name Dose Route Start Last Admin Trade Name Freq PRN Reason Stop Dose Admin Sodium Chloride 10 ml 06/25/19 15:16 Saline Flush FLUSH ASDIRECTED PRN Keep Vein Open - Re-Assessments/Exams Free Text/Narrative Re-Assessment/Exam: 06/25/19 17:09 Patient's hematology is grossly unremarkable. WBCs are normal. CRP is normal. Lactic acid is normal. D-dimer is also normal. We will discharge the patient home with a prescription for doxycycline for acute cellulitis. Discharge instructions as documented. Departure - Departure Time of Disposition: 17:10 Disposition: Home, Self-Care 01 Condition: Fair Clinical Impression: Cellulitis of both lower extremities - Discharge Information *PRESCRIPTION DRUG MONITORING PROGRAM REVIEWED*: No *COPY OF PRESCRIPTION DRUG MONITORING REPORT IN PATIENT MATTHEW: No Prescriptions: Doxycycline [Vibramycin] 100 mg PO BID #19 tab Instructions: Cellulitis, Adult Referrals: PCP,None [Primary Care Provider] - Additional Instructions: You were seen in the emergency department today for redness and swelling to your right lower leg. There was also a small amount of redness to your left lower leg. Blood work was completed. This was found to be normal with the exception of slightly elevated liver enzymes. You have been started on doxycycline. A prescription for this medication has been sent to [facility]. Take the medication as prescribed. If you should notice worsening symptoms or develop any new symptoms of concern, please not hesitate to return to the emergency department. I would recommend that you follow-up with a primary care provider to monitor the infection and recheck your liver enzymes. Sepsis Event Note - Evaluation Sepsis Screening Result: No Definite Risk - Focused Exam Vital Signs: Vital Signs Temp Pulse Resp BP Pulse Ox 06/25/19 14:54 97.6 F 101 H 16 138/84 98 Date Exam was Performed: 06/25/19 Time Exam was Performed: 17:05 - My Orders Last 24 Hours: My Active Orders 06/25/19 15:16 Sodium Chloride 0.9% [Saline Flush] 10 ml FLUSH ASDIRECTED PRN Peripheral IV Insertion Adult [OM.PC] Stat 06/25/19 15:17 Peripheral IV Care [RC] . DIRECTED CULTURE BLOOD [BC] Stat Blood Culture x2 Reflex Set [OM.PC] Stat 06/25/19 16:00 CULTURE BLOOD [BC] Stat - Assessment/Plan Last 24 Hours: My Active Orders 06/25/19 15:16 Sodium Chloride 0.9% [Saline Flush] 10 ml FLUSH ASDIRECTED PRN Peripheral IV Insertion Adult [OM.PC] Stat 06/25/19 15:17 Peripheral IV Care [RC] . DIRECTED CULTURE BLOOD [BC] Stat Blood Culture x2 Reflex Set [OM.PC] Stat 06/25/19 16:00 CULTURE BLOOD [BC] Stat
== END 2019-06-25 17:43 | disposition home or self-care (01) ==
LOC: JD.ED 14:46
DX: L03.115 Cellulitis of right lower limb (principal); L03.116 Cellulitis of left lower limb; F17.210 Nicotine dependence, cigarettes, uncomplicated; Z79.899 Other long term (current) drug therapy
CPT/HCPCS: 36415; 80053; 83605; 85025; 85379; 85610; 85730; 86140; 87040; 99284; A9270; 99283

== ENCOUNTER 2020-08-17 04:19 | Emergency (ER) | payer MEDICAID ==
[2020-08-17 04:28] VITALS: BP 130/97; PULSE 110
--- NOTE | 2020-08-17 04:53 | EDM.PDOC ---
ED HPI GENERAL MEDICAL PROBLEM - General Chief Complaint: Skin Complaint Stated Complaint: [facility] Time Seen by Provider: 08/17/20 04:33 Source of Information: Reports: Patient History Limitations: Reports: No Limitations - History of Present Illness INITIAL COMMENTS - FREE TEXT/NARRATIVE: Mr. Dugan is a very pleasant 49-year-old gentleman who is now brought to the ED by EMS due to leg pain, swelling, discoloration. He states that he noticed that his legs were swollen and erythematous about 2 days ago. He states that he was out walking around this morning, trying to find a place that was open so that he could purchase cigarettes. After he walked a very long distance, not finding any place open, his legs began to hurt, therefore he called an ambulance. No recent fever or chills. The patient acknowledges that he has been smoking methamphetamine about twice a month for the past 5 years. He has never previously been to treatment for methamphetamine abuse, although he states that he used heroin for about 15 years, and was in treatment 6 or 7 times for that. He states that has not used heroin for about 4 years. Here in the ED, the patient's initial BP is found to be slightly elevated at 130/97, with tachycardia 110 bpm. He is afebrile, saturating 98% on room air. He is disheveled and appears to be somewhat anxious and tremulous. Prior to 2 days ago, the patient denies having a recent fever, chills, sore throat, ear pain, nasal or sinus congestion, cough, dyspnea, chest pain, palpitations, nausea, vomiting, constipation, diarrhea, abdominal pain, urinary symptoms, recent weight gain or weight loss, recent bloody bowel movements or black bowel movements, recent joint aches, headaches, or rashes. I reviewed the PMHx/PSHx/SocHx, which was reviewed with the patient by the RN. The patient does not have a PCP. Bilateral Lower Leg Pain Score (Numeric/FACES): 10 - Related Data Allergies Allergy/AdvReac Type Severity Reaction Status Date / Time No Known Allergies Allergy Verified 08/17/20 04:28 Home Meds: Home Meds . [No Known Home Meds] 08/17/20 [History] Past Medical History HEENT History: Reports: Impaired Vision Cardiovascular History: Reports: Hypertension Musculoskeletal History: Reports: Fracture (right clavicle, right femur, left ankle) Psychiatric History: Reports: Addiction (methamphetamine, heroin) - Infectious Disease History Infectious Disease History: Reports: Hepatitis C - Past Surgical History HEENT Surgical History: Reports: Oral Surgery Social & Family History - Family History Endocrine/Metabolic: Reports: Diabetes, type II Oncologic: Reports: Brain, Lung - Tobacco Use Tobacco Use Status *Q: Current Every Day Tobacco User Years of Tobacco use: 20 Packs/Tins Daily: 1 - Caffeine Use Caffeine Use: Reports: Coffee, Tea Other Caffeine Use: Patient states he drinks coffe and soda but unable to give an answer as to how much - Recreational Drug Use Recreational Drug Use: Yes Drug Use in Last 12 Months: Yes Recreational Drug Type: Reports: Methamphetamine Recreational Drug Use Frequency: Binges - Living Situation & Occupation Living situation: Reports: with Significant Other (Has girlfiend) ED ROS GENERAL - Review of Systems Review Of Systems: Comprehensive ROS is negative, except as noted in HPI. ED EXAM, SKIN/RASH Exam: See Below Exam Limited By: No Limitations General Appearance: Alert, WD/WN, No Apparent Distress Eye Exam: Bilateral Eye: EOMI, PERRL Ears: Normal External Exam, Hearing Grossly Normal Nose: Normal Inspection Throat/Mouth: Normal Inspection, Normal Lips, Normal Voice, No Airway Compromise Head: Atraumatic, Normocephalic Neck: Normal Inspection, Full Range of Motion Respiratory/Chest: No Respiratory Distress, Lungs Clear, Normal Breath Sounds, No Accessory Muscle Use Cardiovascular: Normal Peripheral Pulses, Regular Rate, Rhythm, No Gallop, No JVD, No Murmur, No Rub Peripheral Pulses: 3+: Radial (L), Radial (R) GI/Abdominal: Normal Bowel Sounds, Soft, Non-Tender, No Organomegaly, No Distention, No Abnormal Bruit, No Mass Back Exam: Normal Inspection, Full Range of Motion, NT Extremities: Normal Range of Motion, Normal Capillary Refill, Other (2-3+ pitting pretibial edema bilaterally with erythematous hyperpigmentation consistent with chronic venous stasis changes. No associated calor.) Neurological: Alert, Oriented, Normal Cognition, No Motor/Sensory Deficits, Other (Mildly tremulous) Psychiatric: Anxious Skin: Warm, Dry, Intact, No Rash Lymphatic: No Adenopathy Course - Vital Signs Last Recorded V/S: Last Vital Signs Temp 36.4 C 08/17/20 04:25 Pulse 110 H 05/10/21 04:25 Resp 18 08/17/20 04:25 BP 130/97 H 08/17/20 04:25 Pulse Ox 98 08/17/20 04:25 - Re-Assessments/Exams Free Text/Narrative Re-Assessment/Exam: 08/17/20 04:47 As above, the patient noticed edema and circumferential erythema to both of his legs 2 days ago, and states that he was walking a long distance to try to find some cigarettes this morning, when he developed leg pain and decided to call an ambulance to bring him to the ED. On examination, the erythema is due to hyperpigmentation due to chronic venous stasis, not cellulitis. The recommended treatment is the application of compression stockings every morning, and taking them off at bedtime, along with elevating his lower extremities as much as possible when he is not ambulating. I am not a fan of treating lower extremity edema with diuretics, because while it may help to reduce the edema, it does so at the expense of the kidneys. I will refer the patient to the clinic so that he can establish a PCP, and I also encouraged him to follow-up at [facility] to address his methamphetamine use. Departure - Departure Time of Disposition: 04:49 Disposition: Home, Self-Care 01 Condition: Good Clinical Impression: Chronic venous stasis dermatitis of both lower extremities, Methamphetamine abuse - Discharge Information *PRESCRIPTION DRUG MONITORING PROGRAM REVIEWED*: Not Applicable *COPY OF PRESCRIPTION DRUG MONITORING REPORT IN PATIENT MATTHEW: Not Applicable Referrals: PCP,None [Primary Care Provider] - Nicky Damon NP [Nurse Practitioner] - Additional Instructions: You were seen in the emergency room for pain in both of your legs, associated with redness and swelling noticed a couple of days ago. 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 We recommend that you purchase knee-high or thigh-high compression stockings and apply them every morning, removing them at bedtime. In addition, we recommend that you elevate your legs as much as possible when not walking around. We recommend that you establish a PCP. Please call the number provided to follow-up with Nicky Damon NP, or one of the other providers in the clinic. We strongly recommend that you follow-up at [facility] to address your methamphetamine use: [address] [phone] If any other problems, please do not hesitate to return to the ER. Sepsis Event Note (ED) - Evaluation Sepsis Screening Result: No Definite Risk - Focused Exam Vital Signs: Vital Signs Temp Pulse Resp BP Pulse Ox 08/17/20 04:25 36.4 C 110 H 18 130/97 H 98
== END 2020-08-17 04:59 | disposition home or self-care (01) ==
LOC: JD.ED 04:19
DX: I87.2 Venous insufficiency (chronic) (peripheral) (principal); F15.10 Other stimulant abuse, uncomplicated; I10 Essential (primary) hypertension; Z72.0 Tobacco use
CPT/HCPCS: 99283; 99284

== ENCOUNTER 2020-08-21 21:06 | Inpatient (IN) | payer MEDICAID ==
[2020-08-21] MEDS ORDERED: Sodium Chloride 0.9% 10 ML Syringe FLUSH PRN (21:37)
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
[2020-08-21] MEDS ORDERED: Vancomycin 1.75 GM in Sodium Chloride 0.9% 500 ML IV ONE (22:50)
[2020-08-21 23:34] LABS: HEMOGLOBIN A1C 5.4 %
--- NOTE | 2020-08-22 01:09 | PCM.SN.2 ---
- Free Text/Narrative Note: Procedure: IV Start Time: Called by nursing staff for difficult IV start. Multiple previous failed attempt s. IV start kit utilized, Site cleansed with chlorhexidine, 20 gauge 1.88 inch IV started in the right basilic vein, good blood return, flushes well with 20 ml 0.9NS, secured with skin prep, transparent dressing, and tape. Tolerated procedure well. Report given to nursing staff. Salud Moncada, INVENTORY CLERK
[2020-08-22] MEDS ORDERED: Piperacillin/Tazobactam 4.5 GM in Sodium Chloride 0.9% 100 ML IV ONE (03:30)
[2020-08-22] MEDS ORDERED: Albuterol/Ipratropium 3.0-0.5 MG/3 ML Neb Soln NEB PRN (06:33)
[2020-08-22] MEDS ORDERED: Morphine 2 MG/ML SYRINGE IVPUSH PRN (06:33)
[2020-08-22] MEDS ORDERED: Acetaminophen 650 MG Supp RECTAL PRN (06:33)
[2020-08-22] MEDS ORDERED: Promethazine 12.5 MG in Sodium Chloride 0.9% 50 ML IV PRN (06:33)
[2020-08-22] MEDS ORDERED: traMADol 50 MG Tab PO PRN (06:42)
[2020-08-22] MEDS ORDERED: Sodium Chloride 0.9% 1,000 ML IV SCH (06:45)
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
[2020-08-22] MEDS ORDERED: cefTRIAXone 1 GM in Sodium Chloride 0.9% 100 ML IV SCH (07:00)
[2020-08-22] MEDS ORDERED: hydrALAZINE 20 MG/ML SDV IVPUSH PRN (07:11)
--- NOTE | 2020-08-22 08:23 | PCM.SN.2 ---
- Free Text/Narrative Note: This is a 49-year-old male who is known to the service from prior admissions with a history of heroin and methamphetamine abuse, pedal edema, cellulitis,tachycardia, hep C, and daily tobacco use. He was reportedly seen in our ED 4 days ago and diagnosed with stasis dermatitis however erythema and redness continued. He was started on vancomycin and Rocephin. Formal admission H&P was done by Dr. Langston today, however it is provider shift change. Today patient has had a shower and states that he feels good. He denies any current leg pain. He is actively pressing on his legs and rubbing them as we discussed things. He states he is working on quitting smoking and currently smokes about 1/2 pack a day. 14 mg nicotine patches were added. He does have significant pedal edema and will elevate his extremities twice daily. MRSA screen was negative. There is a very mild leukocytosis at 9.17 and CRP is 4.7. Lower extremity venous Doppler was ordered to rule out DVT. Blood cultures are pending. Lung sounds remain clear. Normal S1 and S2. Active bowel sounds with no pain on palpation. Patient is a very very hard IV stick and required a central line during his last admission. Discussed with nursing importance of keeping peripheral IV line patent if possible. Continue current treatment plan with IV Rocephin and vancomycin for now. Will await blood cultures.
[2020-08-22] MEDS: Enoxaparin 40 MG/0.4 ML Syringe SUBCUT SCH (10:19)
[2020-08-22] MEDS: Nicotine 14 MG/24 Hr Patch TRDERM SCH (10:21)
[2020-08-22] MEDS ORDERED: Vancomycin 1.75 GM in Sodium Chloride 0.9% 500 ML IV SCH (11:00)
[2020-08-22] MEDS ORDERED: Lidocaine 1% 4 ML ONE (12:51)
[2020-08-22] MEDS ORDERED: cefTRIAXone 2 GM in Sodium Chloride 0.9% 100 ML IV SCH (16:00)
[2020-08-22] MEDS: Vancomycin 1.75 GM in Sodium Chloride 0.9% 500 ML IV SCH (18:16)
--- NOTE | 2020-08-22 19:27 | PCM.SN.2 ---
- Free Text/Narrative Note: PICC Line Insertion Date:08/22/2020 Start: 1827 Stop: 1926 Difficult IV Access PICC line ordered for fdc antibiotic use. Chart reviewed. Risks and benefits reviewed with patient (Kenneth Dugan) . Agrees to proceed. Consent signed. Time Out performed. Site cleansed with ChloraPrep. Left arm prepped with chloraprep x 3. Lidocaine 1% local anesthetic injected prior to 20ga IV catheter insertion. Sterile gown, gloves and drape used. 4fr Groshong NXT ClearVue PICC inserted in the left arm at 50 cm at the skin per sterile technique with ultrasound guidance. Total catheter length 59 cm. Secured with statlock device. Flushes well with NaCl with good blood return. Dressed with transparent dressing with CHG. 9 cm PICC catheter remains out for measurement purposes. Chest Xray taken. Confirmation pending per radiology. Salud Moncada RN ON SITE
[2020-08-23] MEDS: Vancomycin 1.75 GM in Sodium Chloride 0.9% 500 ML IV SCH ×2 (05:03→17:25)
[2020-08-23] MEDS ORDERED: cefTRIAXone 2 GM in Sodium Chloride 0.9% 100 ML IV SCH (07:00)
[2020-08-23] MEDS: Nicotine 14 MG/24 Hr Patch TRDERM SCH ×2 (08:22→11:17)
[2020-08-23] MEDS: Enoxaparin 40 MG/0.4 ML Syringe SUBCUT SCH (08:22)
--- NOTE | 2020-08-23 08:25 | PCM.PN ---
- General Info Date of Service: 08/23/20 Admission Dx/Problem (Free Text): Admission Diagnosis/Problem Admission Diagnosis/Problem Cellulitis Subjective Update: In to see Soy. He is laying in bed eating. He reports his legs feel pretty good. He is bacteremic with 2 out of 4 blood cultures thus far returning gram- positive cocci. His IV yesterday went bad and he has very difficult IV access from prior years of drug use. During his last admission he was requiring a central line. stucco mason was able to place a PICC line in patient's left arm and this will be utilized for antibiotics. We will repeat blood cultures tomorrow. Continue Rocephin and vancomycin antibiotics for now pending further sensitivities. Echo ordered for tomorrow, which is the earliest we can obtain them, to rule out cardiac vegetation. Procalcitonin returned mildly elevated 0.15. WBC has returned to normal. CRP is slightly elevated but remained stable. Patient denies any IV drug use for past several years but does state that he smokes methamphetamine occasionally. Buprenorphine was also positive. We discussed significant risks of both. Legs look fairly stable today. Erythe ma is improving. Obvious concern would be discharging known drug addict with PICC line and this will likely affect patient's length of stay. Functional Status: Reports: Pain Controlled, Tolerating Diet, Ambulating, Urinating. Denies: New Symptoms - Review of Systems General: Reports: No Symptoms. Denies: Fever, Weakness, Chills HEENT: Reports: No Symptoms. Denies: Headaches, Sore Throat Pulmonary: Reports: No Symptoms. Denies: Shortness of Breath, Cough, Sputum, Wheezing Cardiovascular: Reports: Edema. Denies: Chest Pain, Palpitations, Dyspnea on E xertion Gastrointestinal: Reports: No Symptoms. Denies: Abdominal Pain, Constipation, Diarrhea, Nausea, Vomiting Genitourinary: Reports: No Symptoms. Denies: Pain Musculoskeletal: Reports: No Symptoms Skin: Reports: No Symptoms. Denies: Cyanosis Neurological: Reports: No Symptoms. Denies: Confusion, Pre-Existing Deficit, Difficulty Walking, Weakness, Gait Disturbance Psychiatric: Reports: No Symptoms - Patient Data Vitals - Most Recent: Last Vital Signs Temp 98.1 F 08/23/20 07:49 Pulse 88 08/23/20 07:49 Resp 14 08/23/20 07:49 BP 135/81 08/23/20 07:49 Pulse Ox 97 08/23/20 07:49 Weight - Most Recent: 255 lb 14.4 oz I&O - Last 24 Hours: Intake & Output 08/22/20 08/23/20 08/23/20 22:59 06:59 14:59 Intake Total 600 1200 Output Total 1975 Balance 600 -775 Lab Results Last 24 Hours: Laboratory Results - last 24 hr 08/22/20 08/22/20 08/23/20 Range/Units 07:12 15:41 04:55 WBC 6.55 (4.23-9.07) K/mm3 RBC 4.75 (4.63-6.08) M/mm3 Hgb 13.8 (13.7-17.5) gm/dl Hct 41.8 (40.1-51.0) % MCV 88.0 (79.0-92.2) fl MCH 29.1 (25.7-32.2) pg MCHC 33.0 (32.2-35.5) g/dl RDW Std Deviation 41.8 (35.1-43.9) fL Plt Count 245 (163-337) K/mm3 MPV 9.0 L (9.4-12.3) fl Neut % (Auto) 48.8 (34.0-67.9) % Lymph % (Auto) 32.5 (21.8-53.1) % Mcpherson % (Auto) 14.8 H (5.3-12.2) % Eos % (Auto) 3.2 (0.8-7.0) Baso % (Auto) 0.5 (0.1-1.2) % Neut # (Auto) 3.20 (1.78-5.38) K/mm3 Lymph # (Auto) 2.13 (1.32-3.57) K/mm3 Mcpherson # (Auto) 0.97 H (0.30-0.82) K/mm3 Eos # (Auto) 0.21 (0.04-0.54) K/mm3 Baso # (Auto) 0.03 (0.01-0.08) K/mm3 Sodium (136-145) mEq/L Potassium (3.5-5.1) mEq/L Chloride (98-107) mEq/L Carbon Dioxide (21-32) mEq/L Anion Gap (5-15) BUN (7-18) mg/dL Creatinine (0.7-1.3) mg/dL Est Cr Clr Drug Dosing mL/min Estimated GFR (MDRD) (>60) mL/min BUN/Creatinine Ratio (14-18) Glucose (70-99) mg/dL Calcium (8.5-10.1) mg/dL Magnesium (1.8-2.4) mg/dL Total Bilirubin (0.2-1.0) mg/dL AST (15-37) U/L ALT (16-63) U/L Alkaline Phosphatase (46-116) U/L C-Reactive Protein (<1.0) mg/dL Total Protein (6.4-8.2) g/dl Albumin (3.4-5.0) g/dl Globulin gm/dL Albumin/Globulin Ratio (1-2) Urine Opiates Screen Negative (NECBZW=999) Ur Buprenorphine Scrn Presumptive positive (CUTOFF=10) Ur Oxycodone Screen Negative (GAS3RU=533) Urine Methadone Screen Negative (ZMK2SZ=156) Ur Propoxyphene Screen Negative (BMVRNA=316) Ur Barbiturates Screen Negative (SWMYYM=648) Ur Tricyclics Screen Negative (RSOMCG=821) Ur Phencyclidine Scrn Negative (CUTOFF=25) Ur Amphetamine Screen Presumptive positive H (WXKABY=874) U Methamphetamines Scrn Presumptive positive H (EYHCCB=324) U Benzodiazepines Scrn Negative (IHOZHU=867) U Cocaine Metab Screen Negative (UZECYO=416) U Marijuana (THC) Screen Negative (CUTOFF=50) MRSA (PCR) Negative 08/23/20 08/23/20 Range/Units 04:55 04:55 WBC (4.23-9.07) K/mm3 RBC (4.63-6.08) M/mm3 Hgb (13.7-17.5) gm/dl Hct (40.1-51.0) % MCV (79.0-92.2) fl MCH (25.7-32.2) pg MCHC (32.2-35.5) g/dl RDW Std Deviation (35.1-43.9) fL Plt Count (163-337) K/mm3 MPV (9.4-12.3) fl Neut % (Auto) (34.0-67.9) % Lymph % (Auto) (21.8-53.1) % Mcpherson % (Auto) (5.3-12.2) % Eos % (Auto) (0.8-7.0) Baso % (Auto) (0.1-1.2) % Neut # (Auto) (1.78-5.38) K/mm3 Lymph # (Auto) (1.32-3.57) K/mm3 Mcpherson # (Auto) (0.30-0.82) K/mm3 Eos # (Auto) (0.04-0.54) K/mm3 Baso # (Auto) (0.01-0.08) K/mm3 Sodium 140 (136-145) mEq/L Potassium 4.2 (3.5-5.1) mEq/L Chloride 106 (98-107) mEq/L Carbon Dioxide 26 (21-32) mEq/L Anion Gap 12.2 (5-15) BUN 13 (7-18) mg/dL Creatinine 0.9 (0.7-1.3) mg/dL Est Cr Clr Drug Dosing 114.67 mL/min Estimated GFR (MDRD) > 60 (>60) mL/min BUN/Creatinine Ratio 14.4 (14-18) Glucose 97 (70-99) mg/dL Calcium 8.1 L (8.5-10.1) mg/dL Magnesium 1.9 (1.8-2.4) mg/dL Total Bilirubin 0.5 (0.2-1.0) mg/dL AST 56 H (15-37) U/L ALT 98 H (16-63) U/L Alkaline Phosphatase 57 (46-116) U/L C-Reactive Protein 5.4 H* (<1.0) mg/dL Total Protein 7.4 (6.4-8.2) g/dl Albumin 2.9 L (3.4-5.0) g/dl Globulin 4.5 gm/dL Albumin/Globulin Ratio 0.6 L (1-2) Urine Opiates Screen (HSQFMC=233) Ur Buprenorphine Scrn (CUTOFF=10) Ur Oxycodone Screen (PKR0KL=257) Urine Methadone Screen (GIX4ZG=683) Ur Propoxyphene Screen (XOTLAZ=014) Ur Barbiturates Screen (BWFTKF=795) Ur Tricyclics Screen (IBQCRS=327) Ur Phencyclidine Scrn (CUTOFF=25) Ur Amphetamine Screen (AVOTFX=509) U Methamphetamines Scrn (LWSONP=408) U Benzodiazepines Scrn (SJNGLZ=179) U Cocaine Metab Screen (ACTCYH=119) U Marijuana (THC) Screen (CUTOFF=50) MRSA (PCR) Chilo Results Last 24 Hours: Microbiology 08/21/20 22:06 Aerobic Blood Culture - Preliminary Blood NO GROWTH AFTER 1 DAY Anaerobic Blood Culture - Final 08/21/20 21:55 Aerobic Blood Culture - Preliminary Blood Gram Positive Cocci Anaerobic Blood Culture - Preliminary Gram Positive Cocci Med Orders - Current: Current Medications Acetaminophen (Acetaminophen 650 Mg Supp) 650 mg RECTAL Q6H PRN PRN Reason: Pain (mild 1-3) Albuterol/Ipratropium (Albuterol/Ipratropium 3.0-0.5 Mg/3 Ml Neb Soln) 3 ml NEB Q4H PRN PRN Reason: Shortness Of Breath/wheezing Enoxaparin Sodium (Enoxaparin 40 Mg/0.4 Ml Syringe) 40 mg SUBCUT DAILY [facility] Last Admin: 08/22/20 10:19 Dose: 40 mg Documented by: Hydralazine HCl (Hydralazine 20 Mg/Ml Sdv) 10 mg IVPUSH Q4H PRN PRN Reason: Hypertension Promethazine HCl 12.5 mg/ (Sodium Chloride) 50.5 mls @ 100 mls/hr IV Q6H PRN PRN Reason: Nausea/Vomiting Ceftriaxone Sodium 2 gm/ (Sodium Chloride) 100 mls @ 200 mls/hr IV Q24H [facility] Last Admin: 08/23/20 07:07 Dose: 200 mls/hr Documented by: Vancomycin HCl 1.75 gm/ Sodium (Chloride) 500 mls @ 250 mls/hr IV Q12H [facility] Last Admin: 08/23/20 05:03 Dose: 250 mls/hr Documented by: Nicotine (Nicotine 14 Mg/24 Hr Patch) 14 mg TRDERM DAILY [facility] Last Admin: 08/22/20 10:21 Dose: 14 mg Documented by: Sodium Chloride (Sodium Chloride 0.9% 10 Ml Syringe) 10 ml FLUSH ASDIRECTED PRN PRN Reason: Keep Vein Open Last Admin: 08/22/20 01:29 Dose: 10 ml Documented by: Tramadol HCl (Tramadol 50 Mg Tab) 50 mg PO Q6H PRN PRN Reason: Pain (moderate 4-6) Vancomycin HCl (Pharmacy To Dose - Vancomycin) 1 dose .XX ASDIRECTED [facility] Discontinued Medications Vancomycin HCl 1.75 gm/ Sodium (Chloride) 500 mls @ 250 mls/hr IV ONETIME ONE Stop: 08/21/20 22:51 Last Admin: 08/22/20 01:10 Dose: 250 mls/hr Documented by: Piperacillin Sod/Tazobactam (Sod 4.5 gm/ Sodium Chloride) 100 mls @ 200 mls/hr IV ONETIME ONE Stop: 08/22/20 03:59 Last Admin: 08/22/20 03:24 Dose: 200 mls/hr Documented by: Sodium Chloride (Normal Saline) 1,000 mls @ 80 mls/hr IV ASDIRECTED [facility] Vancomycin HCl 1 gm/ Sodium (Chloride) 250 mls @ 250 mls/hr IV Q12H [facility] Last Admin: 08/22/20 09:31 Dose: Not Given Documented by: Ceftriaxone Sodium 1 gm/ (Sodium Chloride) 100 mls @ 200 mls/hr IV Q24H [facility] Last Admin: 08/22/20 07:07 Dose: 200 mls/hr Documented by: Vancomycin HCl 1.75 gm/ Sodium (Chloride) 500 mls @ 250 mls/hr IV Q12H [facility] Last Admin: 08/22/20 17:38 Dose: 250 mls/hr Documented by: Lidocaine HCl (Xylocaine-Mpf 1%) Confirm Administered Dose 4 mls @ as directed .ROUTE .STK-MED ONE Stop: 08/22/20 12:52 Ceftriaxone Sodium 2 gm/ (Sodium Chloride) 100 mls @ 200 mls/hr IV Q24H [facility] Last Admin: 08/22/20 17:47 Dose: Not Given Documented by: Morphine Sulfate (Morphine 2 Mg/Ml Syringe) 2 mg IVPUSH Q4H PRN PRN Reason: Pain (severe 7-10) Stop: 08/23/20 06:36 - Exam Quality Assessment: Supplemental Oxygen, Central Line/PICC (PICC). No: Urine Catheter, DVT Prophylaxis Central Line Total Time: 0Days 13Hours General: Alert, Oriented, Cooperative, No Acute Distress HEENT: Pupils Equal, Pupils Reactive, Mucous Membr. Moist/[place] Neck: Supple, Trachea Midline Lungs: Clear to Auscultation, Normal Respiratory Effort Cardiovascular: Regular Rate, Regular Rhythm GI/Abdominal Exam: Normal Bowel Sounds, Soft, Non-Tender, No Distention, No Abnormal Bruit (Male) Exam: Deferred Back Exam: Normal Inspection, Full Range of Motion Extremities: Normal Range of Motion, Non-Tender, Normal Capillary Refill, Pedal Edema, Increased Warmth (improving ), Redness (improving ), Other (Bilateral chronic lower extremity discoloration consistent with PVD.). No: Leg Pain, Limited Range of Motion Peripheral Pulses: 2+: Radial (L), Radial (R), Dorsalis Pedis (L), Dorsalis Pedis (R) Skin: Warm, Dry, Intact, Other (Multiple scars from prior illicit drug use and abscesses. ) Neurological: No New Focal Deficit Psy/Mental Status: Alert, Normal Affect, Normal Mood - Patient Data Lab Results Last 24 hrs: Laboratory Results - last 24 hr 08/22/20 08/22/20 08/23/20 Range/Units 07:12 15:41 04:55 WBC 6.55 (4.23-9.07) K/mm3 RBC 4.75 (4.63-6.08) M/mm3 Hgb 13.8 (13.7-17.5) gm/dl Hct 41.8 (40.1-51.0) % MCV 88.0 (79.0-92.2) fl MCH 29.1 (25.7-32.2) pg MCHC 33.0 (32.2-35.5) g/dl RDW Std Deviation 41.8 (35.1-43.9) fL Plt Count 245 (163-337) K/mm3 MPV 9.0 L (9.4-12.3) fl Neut % (Auto) 48.8 (34.0-67.9) % Lymph % (Auto) 32.5 (21.8-53.1) % Mcpherson % (Auto) 14.8 H (5.3-12.2) % Eos % (Auto) 3.2 (0.8-7.0) Baso % (Auto) 0.5 (0.1-1.2) % Neut # (Auto) 3.20 (1.78-5.38) K/mm3 Lymph # (Auto) 2.13 (1.32-3.57) K/mm3 Mcpherson # (Auto) 0.97 H (0.30-0.82) K/mm3 Eos # (Auto) 0.21 (0.04-0.54) K/mm3 Baso # (Auto) 0.03 (0.01-0.08) K/mm3 Sodium (136-145) mEq/L Potassium (3.5-5.1) mEq/L Chloride (98-107) mEq/L Carbon Dioxide (21-32) mEq/L Anion Gap (5-15) BUN (7-18) mg/dL Creatinine (0.7-1.3) mg/dL Est Cr Clr Drug Dosing mL/min Estimated GFR (MDRD) (>60) mL/min BUN/Creatinine Ratio (14-18) Glucose (70-99) mg/dL Calcium (8.5-10.1) mg/dL Magnesium (1.8-2.4) mg/dL Total Bilirubin (0.2-1.0) mg/dL AST (15-37) U/L ALT (16-63) U/L Alkaline Phosphatase (46-116) U/L C-Reactive Protein (<1.0) mg/dL Total Protein (6.4-8.2) g/dl Albumin (3.4-5.0) g/dl Globulin gm/dL Albumin/Globulin Ratio (1-2) Urine Opiates Screen Negative (IFQUQZ=249) Ur Buprenorphine Scrn Presumptive positive (CUTOFF=10) Ur Oxycodone Screen Negative (RLP2BJ=505) Urine Methadone Screen Negative (HQQ8SX=180) Ur Propoxyphene Screen Negative (QHQWIS=449) Ur Barbiturates Screen Negative (IJVPFO=600) Ur Tricyclics Screen Negative (IBUPSC=723) Ur Phencyclidine Scrn Negative (CUTOFF=25) Ur Amphetamine Screen Presumptive positive H (DQDRVD=703) U Methamphetamines Scrn Presumptive positive H (PZSNSW=800) U Benzodiazepines Scrn Negative (IVGALO=317) U Cocaine Metab Screen Negative (TYIBBE=704) U Marijuana (THC) Screen Negative (CUTOFF=50) MRSA (PCR) Negative 08/23/20 08/23/20 Range/Units 04:55 04:55 WBC (4.23-9.07) K/mm3 RBC (4.63-6.08) M/mm3 Hgb (13.7-17.5) gm/dl Hct (40.1-51.0) % MCV (79.0-92.2) fl MCH (25.7-32.2) pg MCHC (32.2-35.5) g/dl RDW Std Deviation (35.1-43.9) fL Plt Count (163-337) K/mm3 MPV (9.4-12.3) fl Neut % (Auto) (34.0-67.9) % Lymph % (Auto) (21.8-53.1) % Mcpherson % (Auto) (5.3-12.2) % Eos % (Auto) (0.8-7.0) Baso % (Auto) (0.1-1.2) % Neut # (Auto) (1.78-5.38) K/mm3 Lymph # (Auto) (1.32-3.57) K/mm3 Mcpherson # (Auto) (0.30-0.82) K/mm3 Eos # (Auto) (0.04-0.54) K/mm3 Baso # (Auto) (0.01-0.08) K/mm3 Sodium 140 (136-145) mEq/L Potassium 4.2 (3.5-5.1) mEq/L Chloride 106 (98-107) mEq/L Carbon Dioxide 26 (21-32) mEq/L Anion Gap 12.2 (5-15) BUN 13 (7-18) mg/dL Creatinine 0.9 (0.7-1.3) mg/dL Est Cr Clr Drug Dosing 114.67 mL/min Estimated GFR (MDRD) > 60 (>60) mL/min BUN/Creatinine Ratio 14.4 (14-18) Glucose 97 (70-99) mg/dL Calcium 8.1 L (8.5-10.1) mg/dL Magnesium 1.9 (1.8-2.4) mg/dL Total Bilirubin 0.5 (0.2-1.0) mg/dL AST 56 H (15-37) U/L ALT 98 H (16-63) U/L Alkaline Phosphatase 57 (46-116) U/L C-Reactive Protein 5.4 H* (<1.0) mg/dL Total Protein 7.4 (6.4-8.2) g/dl Albumin 2.9 L (3.4-5.0) g/dl Globulin 4.5 gm/dL Albumin/Globulin Ratio 0.6 L (1-2) Urine Opiates Screen (PSLHOZ=505) Ur Buprenorphine Scrn (CUTOFF=10) Ur Oxycodone Screen (MST4XV=836) Urine Methadone Screen (ZRR7HR=136) Ur Propoxyphene Screen (VWOOFN=325) Ur Barbiturates Screen (VKVVYX=098) Ur Tricyclics Screen (LXEBXE=351) Ur Phencyclidine Scrn (CUTOFF=25) Ur Amphetamine Screen (MXDZDT=412) U Methamphetamines Scrn (QCHLAQ=266) U Benzodiazepines Scrn (FGHULX=275) U Cocaine Metab Screen (SWCVTS=741) U Marijuana (THC) Screen (CUTOFF=50) MRSA (PCR) Result Diagrams: 08/23/20 04:55 08/23/20 04:55 Chilo Results Last 24 hrs: Microbiology 08/21/20 22:06 Aerobic Blood Culture - Preliminary Blood NO GROWTH AFTER 1 DAY Anaerobic Blood Culture - Final 08/21/20 21:55 Aerobic Blood Culture - Preliminary Blood Gram Positive Cocci Anaerobic Blood Culture - Preliminary Gram Positive Cocci Sepsis Event Note - Evaluation Sepsis Screening Result: No Definite Risk - Focused Exam Vital Signs: Vital Signs Temp Pulse Resp BP Pulse Ox 08/23/20 07:49 98.1 F 88 14 135/81 97 08/23/20 04:56 98.1 F 72 18 125/72 100 08/22/20 21:33 97.9 F 96 18 145/81 H 99 - Problem List & Annotations (1) History of heroin abuse SNOMED Code(s): 952092253 Code(s): F11.11 - OPIOID ABUSE, IN REMISSION Status: Chronic Priority: High Current Visit: Yes (2) Bacteremia SNOMED Code(s): 9091973 Code(s): R78.81 - BACTEREMIA Status: Acute Priority: High Current Visit: Yes (3) PICC (peripherally inserted central catheter) in place SNOMED Code(s): 5759042064540, 5147966216101 Code(s): Z45.2 - ENCOUNTER FOR ADJUSTMENT AND MANAGEMENT OF VAD Status: Acute Priority: High Current Visit: Yes (4) Difficult intravenous access SNOMED Code(s): 521554399 Code(s): Z78.9 - OTHER SPECIFIED HEALTH STATUS Status: Chronic Priority: High Current Visit: Yes (5) Fluid retention in legs SNOMED Code(s): 876728659 Code(s): R60.0 - LOCALIZED EDEMA Status: Chronic Priority: High Current Visit: Yes (6) Cellulitis of both lower extremities SNOMED Code(s): 097041021 Code(s): L03.115 - CELLULITIS OF RIGHT LOWER LIMB; L03.116 - CELLULITIS OF LEFT LOWER LIMB Status: Acute Priority: High Current Visit: Yes (7) Chronic venous stasis dermatitis of both lower extremities SNOMED Code(s): 51464315 Code(s): I87.2 - VENOUS INSUFFICIENCY (CHRONIC) (PERIPHERAL) Status: Chronic Priority: Medium Current Visit: Yes (8) Methamphetamine addiction SNOMED Code(s): 538834761, 907791921 Code(s): F15.20 - OTHER STIMULANT DEPENDENCE, UNCOMPLICATED Status: Chronic Priority: High Current Visit: Yes (9) Nicotine use disorder SNOMED Code(s): 20822131 Code(s): F17.200 - NICOTINE DEPENDENCE, UNSPECIFIED, UNCOMPLICATED Status: Chronic Priority: Medium Current Visit: Yes (10) Obesity (BMI 30-39.9) SNOMED Code(s): 966488914, 948077393 Code(s): E66.9 - OBESITY, UNSPECIFIED Status: Chronic Priority: Low Current Visit: No (11) Hepatitis C antibody test positive SNOMED Code(s): 428951228 Code(s): R76.8 - OTHER SPECIFIED ABNORMAL IMMUNOLOGICAL FINDINGS IN SERUM Status: Chronic Priority: Medium Current Visit: Yes (12) Hypertension SNOMED Code(s): 68888925 Code(s): I10 - ESSENTIAL (PRIMARY) HYPERTENSION Status: Chronic Priority: Medium Current Visit: No Qualifiers: Hypertension type: essential hypertension Qualified Code(s): I10 - Essential (primary) hypertension (13) Polysubstance abuse SNOMED Code(s): 643580983 Code(s): F19.10 - OTHER PSYCHOACTIVE SUBSTANCE ABUSE, UNCOMPLICATED Status: Acute Priority: High Current Visit: Yes - Problem List Review Problem List Initiated/Reviewed/Updated: Yes - My Orders Last 24 Hours: My Active Orders 08/22/20 10:00 Elevate Extremity [RC] BID 08/22/20 10:15 Nicotine [Habitrol] 14 mg TRDERM DAILY 08/22/20 15:11 PROCALCITONIN [REF] Routine 08/22/20 15:45 Chest 1V-Tube Placement Chk NC [CR] Routine 08/22/20 16:10 Blood Culture x2 Reflex Set [OM.PC] Stat 08/22/20 16:16 Patient Status [ADT] Routine 08/23/20 07:00 cefTRIAXone [Rocephin] 2 gm Sodium Chloride 0.9% [Normal Saline] 100 ml IV Q24H 08/24/20 05:11 CRP [C-REACTIVE PROTEIN] [CHEM] AM 08/24/20 08:00 Echo Comp wo Cont [US] Routine CULTURE BLOOD [BC] Routine CULTURE BLOOD [BC] Routine 08/25/20 05:11 CRP [C-REACTIVE PROTEIN] [CHEM] AM 08/26/20 05:11 CRP [C-REACTIVE PROTEIN] [CHEM] AM - Plan Plan:: Pt is a 49yom with a hx of HTN, current smoker, and hx of meth abuse who presented to the ER due to redness, swelling and pain of legs for 7-8 days. Assessment: Cellulitis Chronic bilateral stasis dermatitis Fluid retention in bilateral legs Bacteremia - 2/4 bottles -Hx of hospitalization for cellulitis b/l on 11/28/2018 -No DM (A1c 5.4) -US doppler to r/o DVT - negative -2/4 Bottles positive for gram positive cocci -Echo ordered -Repeat blood cultures ordered for 08/24/2020 -Vancomycin (pharmacy to dose) and Rocephin daily -Hx/o staph epidermidis and staph intermedius bacteremia HTN -Not on home BP meds -BP controlled currently -Monitor Nicotine use disorder Polysubstance abuse Methamphetamine abuse Hx/o heroin abuse Chronic Hepatitis C -Positive for methamphetamine, amphetamines and buprenorphine on drug screen -Admits to recent methamphetamine abuse; Denies recent heroin use -Reports 1/2 pack a day smoker -Monitor labs Difficult IV access PICC line in place -History of requiring central line for IV meds in past -Vasculature is hard from past illicit drug use -PICC line placed 08/22/2020 Plan: 1. Continue inpatient admission; added telemetry with positive blood cultures 2. Repeat blood cultures on 08/24/2020 (+48 hours of IV ABX) 3. Continue vancomycin and ceftriaxone 2gm pending sensitivities 4. Follow daily labs 5. Smoking cessation counseling. Nicotine patch. 6. consult for substance abuse. 7. Continue PICC line for ABX as patient is very difficult IV start 8. PRN pain medications if needed - patient currently denying pain 9. PRN hydralizine for HTN 10. Elevate extremities at least BID 11. Echocardiogram ordered for 08/24/2020 (earliest available) to R/O vegetation. 12. VTE prophylaxis: Lovenox 13. Disposition: LOS 4-5 days pending bacteremia treatment and repeat blood cultures. Concern with patient's drug history and PICC line in place. This will likely affect length of stay as well.
[2020-08-24] MEDS ORDERED: cefTRIAXone 2 GM in Sodium Chloride 0.9% 100 ML IV SCH ×2 (06:00→07:00)
[2020-08-24] MEDS ORDERED: Vancomycin 1.75 GM in Sodium Chloride 0.9% 500 ML IV SCH (07:00)
[2020-08-24] MEDS: Nicotine 14 MG/24 Hr Patch TRDERM SCH (09:30)
[2020-08-24] MEDS: Enoxaparin 40 MG/0.4 ML Syringe SUBCUT SCH (09:31)
--- NOTE | 2020-08-24 10:05 | US ---
Bilateral lower extremity deep venous ultrasound: Duplex and color Doppler evaluation was obtained of the right and left common femoral, proximal greater saphenous, superficial femoral, popliteal, posterior tibial and peroneal veins. Comparison: Prior bilateral venous ultrasound of 11/28/18. Findings: Left peroneal vein is not well visualized for compression but normal phasic flow and augmentation is seen. Other deep veins show normal phasic flow, augmentation and compression. Scattered inguinal lymph nodes are seen which are felt to have a normal ultrasound appearance. Impression: 1. No findings of deep venous thrombosis within the right or left lower extremity. 2. Enlarged lymph nodes within both inguinal regions felt to be within normal limits. Diagnostic code #2 I agree with preliminary report from [facility], finalized on 08/22/20, 4:18 PM CDT, code 1
--- NOTE | 2020-08-24 10:15 | CR ---
Chest: Frontal view of the chest was obtained. Comparison: Prior chest x-ray of 11/28/18. Left-sided PICC line is seen. Tip of PICC line lies within the superior vena cava in satisfactory position. Lungs are clear with no acute parenchymal change. Minimal atelectasis is seen within the right midlung. Bony structures are grossly intact. Impression: 1. Left-sided PICC line satisfactory in position with tip located within the superior vena cava. 2. Slight atelectasis within the right mid lung. 3. Nothing acute is otherwise seen. Diagnostic code #2 I agree with preliminary report from [facility], finalized on 08/22 S. , 9:52 PM CDT, code 1
[2020-08-24 12:56] VITALS: BP 108/86; PULSE 75
--- NOTE | 2020-08-24 13:58 | PCM.PN ---
- General Info Date of Service: 08/24/20 Admission Dx/Problem (Free Text): Admission Diagnosis/Problem Admission Diagnosis/Problem Cellulitis - Patient Data Vitals - Most Recent: Last Vital Signs Temp 97.9 F 08/24/20 12:18 Pulse 75 08/24/20 12:18 Resp 20 08/24/20 12:18 BP 108/86 08/24/20 12:18 Pulse Ox 100 08/24/20 12:18 Weight - Most Recent: 254 lb 6.4 oz I&O - Last 24 Hours: Intake & Output 08/23/20 08/24/20 08/24/20 22:59 06:59 14:59 Intake Total 2020 900 360 Output Total 1900 300 Balance 120 600 360 Lab Results Last 24 Hours: Laboratory Results - last 24 hr 08/24/20 08/24/20 08/24/20 Range/Units 05:40 05:40 05:40 WBC 5.46 (4.23-9.07) K/mm3 RBC 4.71 (4.63-6.08) M/mm3 Hgb 13.6 L (13.7-17.5) gm/dl Hct 41.4 (40.1-51.0) % MCV 87.9 (79.0-92.2) fl MCH 28.9 (25.7-32.2) pg MCHC 32.9 (32.2-35.5) g/dl RDW Std Deviation 41.2 (35.1-43.9) fL Plt Count 246 (163-337) K/mm3 MPV 9.1 L (9.4-12.3) fl Neut % (Auto) 45.0 (34.0-67.9) % Lymph % (Auto) 36.3 (21.8-53.1) % [place] % (Auto) 14.5 H (5.3-12.2) % Eos % (Auto) 3.3 (0.8-7.0) Baso % (Auto) 0.7 (0.1-1.2) % Neut # (Auto) 2.46 (1.78-5.38) K/mm3 Lymph # (Auto) 1.98 (1.32-3.57) K/mm3 [place] # (Auto) 0.79 (0.30-0.82) K/mm3 Eos # (Auto) 0.18 (0.04-0.54) K/mm3 Baso # (Auto) 0.04 (0.01-0.08) K/mm3 Manual Slide Review Normal smear Sodium 139 (136-145) mEq/L Potassium 4.2 (3.5-5.1) mEq/L Chloride 105 (98-107) mEq/L Carbon Dioxide 28 (21-32) mEq/L Anion Gap 10.2 (5-15) BUN 10 (7-18) mg/dL Creatinine 1.0 (0.7-1.3) mg/dL Est Cr Clr Drug Dosing 103.20 mL/min Estimated GFR (MDRD) > 60 (>60) mL/min BUN/Creatinine Ratio 10.0 L (14-18) Glucose 94 (70-99) mg/dL Calcium 8.2 L (8.5-10.1) mg/dL Total Bilirubin 0.3 (0.2-1.0) mg/dL AST 63 H (15-37) U/L ALT 102 H (16-63) U/L Alkaline Phosphatase 54 (46-116) U/L C-Reactive Protein 2.3 H* (<1.0) mg/dL Total Protein 7.3 (6.4-8.2) g/dl Albumin 2.9 L (3.4-5.0) g/dl Globulin 4.4 gm/dL Albumin/Globulin Ratio 0.7 L (1-2) Chilo Results Last 24 Hours: Microbiology 08/21/20 21:55 Aerobic Blood Culture - Preliminary Blood Staphylococcus Epidermidis Anaerobic Blood Culture - Preliminary Staphylococcus Epidermidis 08/21/20 22:06 Aerobic Blood Culture - Preliminary Blood NO GROWTH AFTER 2 DAYS Anaerobic Blood Culture - Final Med Orders - Current: Current Medications Acetaminophen (Acetaminophen 650 Mg Supp) 650 mg RECTAL Q6H PRN PRN Reason: Pain (mild 1-3) Albuterol/Ipratropium (Albuterol/Ipratropium 3.0-0.5 Mg/3 Ml Neb Soln) 3 ml NEB Q4H PRN PRN Reason: Shortness Of Breath/wheezing Enoxaparin Sodium (Enoxaparin 40 Mg/0.4 Ml Syringe) 40 mg SUBCUT DAILY [facility]IE Last Admin: 08/24/20 09:31 Dose: 40 mg Documented by: Hydralazine HCl (Hydralazine 20 Mg/Ml Sdv) 10 mg IVPUSH Q4H PRN PRN Reason: Hypertension Promethazine HCl 12.5 mg/ (Sodium Chloride) 50.5 mls @ 100 mls/hr IV Q6H PRN PRN Reason: Nausea/Vomiting Ceftriaxone Sodium 2 gm/ (Sodium Chloride) 100 mls @ 200 mls/hr IV Q24H [facility] Last Admin: 08/24/20 05:12 Dose: 200 mls/hr Documented by: Vancomycin HCl 1.75 gm/ Sodium (Chloride) 500 mls @ 250 mls/hr IV Q12H [facility] Last Admin: 08/24/20 06:02 Dose: 250 mls/hr Documented by: Nicotine (Nicotine 14 Mg/24 Hr Patch) 14 mg TRDERM DAILY [facility] Last Admin: 08/24/20 09:30 Dose: 14 mg Documented by: Sodium Chloride (Sodium Chloride 0.9% 10 Ml Syringe) 10 ml FLUSH ASDIRECTED PRN PRN Reason: Keep Vein Open Last Admin: 08/22/20 01:29 Dose: 10 ml Documented by: Tramadol HCl (Tramadol 50 Mg Tab) 50 mg PO Q6H PRN PRN Reason: Pain (moderate 4-6) Vancomycin HCl (Pharmacy To Dose - Vancomycin) 1 dose .XX ASDIRECTED PRN PRN Reason: RX TO DOSE VANCO Discontinued Medications Vancomycin HCl 1.75 gm/ Sodium (Chloride) 500 mls @ 250 mls/hr IV ONETIME ONE Stop: 08/21/20 22:51 Last Admin: 08/22/20 01:10 Dose: 250 mls/hr Documented by: Piperacillin Sod/Tazobactam (Sod 4.5 gm/ Sodium Chloride) 100 mls @ 200 mls/hr IV ONETIME ONE Stop: 08/22/20 03:59 Last Admin: 08/22/20 03:24 Dose: 200 mls/hr Documented by: Sodium Chloride (Normal Saline) 1,000 mls @ 80 mls/hr IV ASDIRECTED ANN MARIE Vancomycin HCl 1 gm/ Sodium (Chloride) 250 mls @ 250 mls/hr IV Q12H [facility] Last Admin: 08/22/20 09:31 Dose: Not Given Documented by: Ceftriaxone Sodium 1 gm/ (Sodium Chloride) 100 mls @ 200 mls/hr IV Q24H [facility] Last Admin: 08/22/20 07:07 Dose: 200 mls/hr Documented by: Vancomycin HCl 1.75 gm/ Sodium (Chloride) 500 mls @ 250 mls/hr IV Q12H [facility] Last Admin: 08/22/20 17:38 Dose: 250 mls/hr Documented by: Lidocaine HCl (Xylocaine-Mpf 1%) Confirm Administered Dose 4 mls @ as directed .ROUTE .STK-MED ONE Stop: 08/22/20 12:52 Ceftriaxone Sodium 2 gm/ (Sodium Chloride) 100 mls @ 200 mls/hr IV Q24H [facility] Last Admin: 08/22/20 17:47 Dose: Not Given Documented by: Ceftriaxone Sodium 2 gm/ (Sodium Chloride) 100 mls @ 200 mls/hr IV Q24H [facility] Last Admin: 08/23/20 07:07 Dose: 200 mls/hr Documented by: Vancomycin HCl 1.75 gm/ Sodium (Chloride) 500 mls @ 250 mls/hr IV Q12H [facility] Last Admin: 08/23/20 17:25 Dose: 250 mls/hr Documented by: Ceftriaxone Sodium 2 gm/ (Sodium Chloride) 100 mls @ 200 mls/hr IV Q24H [facility] Morphine Sulfate (Morphine 2 Mg/Ml Syringe) 2 mg IVPUSH Q4H PRN PRN Reason: Pain (severe 7-10) Stop: 08/23/20 06:36 - Exam Central Line Total Time: 1Days 17Hours - Patient Data Lab Results Last 24 hrs: Laboratory Results - last 24 hr 08/24/20 08/24/20 08/24/20 Range/Units 05:40 05:40 05:40 WBC 5.46 (4.23-9.07) K/mm3 RBC 4.71 (4.63-6.08) M/mm3 Hgb 13.6 L (13.7-17.5) gm/dl Hct 41.4 (40.1-51.0) % MCV 87.9 (79.0-92.2) fl MCH 28.9 (25.7-32.2) pg MCHC 32.9 (32.2-35.5) g/dl RDW Std Deviation 41.2 (35.1-43.9) fL Plt Count 246 (163-337) K/mm3 MPV 9.1 L (9.4-12.3) fl Neut % (Auto) 45.0 (34.0-67.9) % Lymph % (Auto) 36.3 (21.8-53.1) % [place] % (Auto) 14.5 H (5.3-12.2) % Eos % (Auto) 3.3 (0.8-7.0) Baso % (Auto) 0.7 (0.1-1.2) % Neut # (Auto) 2.46 (1.78-5.38) K/mm3 Lymph # (Auto) 1.98 (1.32-3.57) K/mm3 [place] # (Auto) 0.79 (0.30-0.82) K/mm3 Eos # (Auto) 0.18 (0.04-0.54) K/mm3 Baso # (Auto) 0.04 (0.01-0.08) K/mm3 Manual Slide Review Normal smear Sodium 139 (136-145) mEq/L Potassium 4.2 (3.5-5.1) mEq/L Chloride 105 (98-107) mEq/L Carbon Dioxide 28 (21-32) mEq/L Anion Gap 10.2 (5-15) BUN 10 (7-18) mg/dL Creatinine 1.0 (0.7-1.3) mg/dL Est Cr Clr Drug Dosing 103.20 mL/min Estimated GFR (MDRD) > 60 (>60) mL/min BUN/Creatinine Ratio 10.0 L (14-18) Glucose 94 (70-99) mg/dL Calcium 8.2 L (8.5-10.1) mg/dL Total Bilirubin 0.3 (0.2-1.0) mg/dL AST 63 H (15-37) U/L ALT 102 H (16-63) U/L Alkaline Phosphatase 54 (46-116) U/L C-Reactive Protein 2.3 H* (<1.0) mg/dL Total Protein 7.3 (6.4-8.2) g/dl Albumin 2.9 L (3.4-5.0) g/dl Globulin 4.4 gm/dL Albumin/Globulin Ratio 0.7 L (1-2) Result Diagrams: 08/24/20 05:40 08/24/20 05:40 Chilo Results Last 24 hrs: Microbiology 08/21/20 21:55 Aerobic Blood Culture - Preliminary Blood Staphylococcus Epidermidis Anaerobic Blood Culture - Preliminary Staphylococcus Epidermidis 08/21/20 22:06 Aerobic Blood Culture - Preliminary Blood NO GROWTH AFTER 2 DAYS Anaerobic Blood Culture - Final Sepsis Event Note - Evaluation Sepsis Screening Result: No Definite Risk - Focused Exam Vital Signs: Vital Signs Temp Pulse Resp BP Pulse Ox 08/24/20 12:18 97.9 F 75 20 108/86 100 08/24/20 09:28 98.2 F 82 14 146/87 H 100 08/24/20 05:17 97.5 F 81 16 143/83 H 98 - Assessment Assessment:: Transthoracic echo cardiogram report: 1. Left ventricular ejection fraction, by visual estimation, is 60 to 65%. 2. Normal left ventricular systolic function. 3. Mild septal left ventricular hypertrophy. 4. Normal pattern of LV diastolic filling. 5. Normal right ventricular size, wall thickness, and systolic function. 6. No aortic valve vegetation. 7. No mitral valvular vegetation is visualized. 8. Trace of mitral valve regurgitation. 9. Trace tricuspid valve regurgitation. 10. Possible vegetation on tricuspid valve leaflet. MANJULA recommended. 11. Intra-atrial septum appears mobile. 12. No regional wall motion abnormalities. - Plan Plan:: Pt is a 49yom with a hx of HTN, current smoker, and hx of meth abuse who presented to the ER due to redness, swelling and pain of legs for 7-8 days. Assessment: Cellulitis Chronic bilateral stasis dermatitis Fluid retention in bilateral legs Bacteremia - 2/4 bottles -Hx of hospitalization for cellulitis b/l on 11/28/2018 -No DM (A1c 5.4) -US doppler to r/o DVT - negative -2/4 Bottles positive for gram positive cocci -Echo ordered -Repeat blood cultures ordered for 08/24/2020 -Vancomycin (pharmacy to dose) and Rocephin daily -Hx/o staph epidermidis and staph intermedius bacteremia HTN -Not on home BP meds -BP controlled currently -Monitor Nicotine use disorder Polysubstance abuse Methamphetamine abuse Hx/o heroin abuse Chronic Hepatitis C -Positive for methamphetamine, amphetamines and buprenorphine on drug screen -Admits to recent methamphetamine abuse; Denies recent heroin use -Reports 1/2 pack a day smoker -Monitor labs Difficult IV access PICC line in place -History of requiring central line for IV meds in past -Vasculature is hard from past illicit drug use -PICC line placed 08/22/2020 Plan: 1. Continue inpatient admission; added telemetry with positive blood cultures 2. Repeat blood cultures on 08/24/2020 (+48 hours of IV ABX) 3. Continue vancomycin and ceftriaxone 2gm pending sensitivities 4. Follow daily labs 5. Smoking cessation counseling. Nicotine patch. 6. consult for substance abuse. 7. Continue PICC line for ABX as patient is very difficult IV start 8. PRN pain medications if needed - patient currently denying pain 9. PRN hydralizine for HTN 10. Elevate extremities at least BID 11. Echocardiogram ordered for 08/24/2020 (earliest available) to R/O vegetation. 12. VTE prophylaxis: Lovenox 13. Disposition: LOS 4-5 days pending bacteremia treatment and repeat blood cultures. Concern with patient's drug history and PICC line in place. This will likely affect length of stay as well.
--- NOTE | 2020-08-24 14:29 | PCM.DCSUM1 ---
Discharge Summary - Hospital Course HPI Initial Comments: Pt is a 49yom with a hx of HTN, current smoker, and hx of meth abuse who presented to the ER due to redness, swelling and pain of legs for 7-8 days. He visited ER 4 days ago when he was diagnosed with stasis dermatitis. But he noted that his legs more redness and he has more pain for he came back to the ER to seek medical assistance. Otherwise he is fine. He was hospitalization on 11/28/2018 for the same problems. In the ER, he was found to have leukocytosis but afebrile. His A1c was 5.4. vanco and zosyn were initiated in the ER. Patient subsequently was admitted to the Medr floor for IV antibiotics. Blood cultures were drawn and were positive for staph epi. This appears to be susceptible to the vancomycin and Rocephin. Blood cultures were repeated today and they are pending. Echocardiogram report came back today and showed possible vegetation on the tricuspid valve leaflet. MANJULA was recommended. We are not capable of providing MANJULA in our facility. Diagnosis: Stroke: No - Discharge Data Discharge Date: 08/24/20 Discharge Disposition: DC/Tfer to Acute Hospital 02 Condition: Good - Referral to Home Health Primary Care Physician: PCP None - Discharge Diagnosis/Problem(s) (1) Bacteremia SNOMED Code(s): 2425907 ICD Code: R78.81 - BACTEREMIA Status: Acute Priority: High Current Visit: Yes (2) Cellulitis of both lower extremities SNOMED Code(s): 660156275 ICD Code: L03.115 - CELLULITIS OF RIGHT LOWER LIMB; L03.116 - CELLULITIS OF LEFT LOWER LIMB Status: Acute Priority: High Current Visit: Yes (3) PICC (peripherally inserted central catheter) in place SNOMED Code(s): 7796561308282, 2958541068566 ICD Code: Z45.2 - ENCOUNTER FOR ADJUSTMENT AND MANAGEMENT OF VAD Status: Acute Priority: High Current Visit: Yes (4) Polysubstance abuse SNOMED Code(s): 348929738 ICD Code: F19.10 - OTHER PSYCHOACTIVE SUBSTANCE ABUSE, UNCOMPLICATED Status: Acute Priority: High Current Visit: Yes (5) Chronic venous stasis dermatitis of both lower extremities SNOMED Code(s): 87780054 ICD Code: I87.2 - VENOUS INSUFFICIENCY (CHRONIC) (PERIPHERAL) Status: Chronic Priority: Medium Current Visit: Yes (6) Difficult intravenous access SNOMED Code(s): 099417475 ICD Code: Z78.9 - OTHER SPECIFIED HEALTH STATUS Status: Chronic Priority: High Current Visit: Yes (7) Hepatitis C antibody test positive SNOMED Code(s): 484225716 ICD Code: R76.8 - OTHER SPECIFIED ABNORMAL IMMUNOLOGICAL FINDINGS IN SERUM Status: Chronic Priority: Medium Current Visit: Yes (8) History of heroin abuse SNOMED Code(s): 269058125 ICD Code: F11.11 - OPIOID ABUSE, IN REMISSION Status: Chronic Priority: High Current Visit: Yes (9) Methamphetamine addiction SNOMED Code(s): 521539771, 039882442 ICD Code: F15.20 - OTHER STIMULANT DEPENDENCE, UNCOMPLICATED Status: Chronic Priority: High Current Visit: Yes (10) Nicotine use disorder SNOMED Code(s): 13074485 ICD Code: F17.200 - NICOTINE DEPENDENCE, UNSPECIFIED, UNCOMPLICATED Status: Chronic Priority: Medium Current Visit: Yes (11) Methamphetamine abuse SNOMED Code(s): 032327195 ICD Code: F15.10 - OTHER STIMULANT ABUSE, UNCOMPLICATED Status: Acute Priority: High Current Visit: Yes (12) Obesity (BMI 30-39.9) SNOMED Code(s): 844186011, 016895469 ICD Code: E66.9 - OBESITY, UNSPECIFIED Status: Chronic Priority: Low Current Visit: No - Patient Summary/Data Consults: Consultations 08/22/20 06:33 Consult to Case Management/Hall Director [CONS] Routine Hospital Course: Pt is a 49yom with a hx of HTN, current smoker, and hx of meth abuse who presented to the ER due to redness, swelling and pain of legs for 7-8 days. Assessment: Cellulitis Chronic bilateral stasis dermatitis Fluid retention in bilateral legs Bacteremia - 2/4 bottles -Hx of hospitalization for cellulitis b/l on 11/28/2018 -No DM (A1c 5.4) -US doppler to r/o DVT - negative -2/4 Bottles positive for gram positive cocci -Echo ordered-report shows possible vegetation on tricuspid valve leaflet. MANJULA recommended. -Repeat blood cultures ordered for 08/24/2020 -Vancomycin (pharmacy to dose) and Rocephin daily -Hx/o staph epidermidis and staph intermedius bacteremia HTN -Not on home BP meds -BP controlled currently -Monitor Nicotine use disorder Polysubstance abuse Methamphetamine abuse Hx/o heroin abuse Chronic Hepatitis C -Positive for methamphetamine, amphetamines and buprenorphine on drug screen -Admits to recent methamphetamine abuse; Denies recent heroin use -Reports 1/2 pack a day smoker -Monitor labs Difficult IV access PICC line in place -History of requiring central line for IV meds in past -Vasculature is hard from past illicit drug use -PICC line placed 08/22/2020 Plan: 1. Continue inpatient admission; added telemetry with positive blood cultures 2. Repeat blood cultures on 08/24/2020 (+48 hours of IV ABX) 3. Continue vancomycin and ceftriaxone 2gm pending sensitivities 4. Follow daily labs 5. Smoking cessation counseling. Nicotine patch. 6. consult for substance abuse. 7. Continue PICC line for ABX as patient is very difficult IV start 8. PRN pain medications if needed - patient currently denying pain 9. PRN hydralizine for HTN 10. Elevate extremities at least BID 11. Echocardiogram ordered for 08/24/2020 (earliest available) to R/O vegetation. 12. VTE prophylaxis: Lovenox 13. Disposition: Transfer to [facility] as the patient requires MANJULA. Enterprise Systems Engineer on-call, Dr. Reza, has agreed to see the patient in consult. Hospitalist, Dr. Arellano, has accepted care of this patient in transfer - Discharge Plan Home Medications: Home Meds . [No Known Home Meds] 08/17/20 [History] Oxygen Therapy Mode: Room Air Patient Handouts: Steps to Quit Smoking, Sepsis, Self Care, Adult Forms: ED Department Discharge Referrals: PCP,None [Primary Care Provider] - - Discharge Summary/Plan Comment DC Time >30 min.: No (transfer to .) - General Info Date of Service: 08/24/20 Subjective Update: In to see Soy. He is laying in bed eating. He reports his legs feel pretty good. He is bacteremic with 2 out of 4 blood cultures thus far returning gram- positive cocci. His IV yesterday went bad and he has very difficult IV access from prior years of drug use. During his last admission he was requiring a central line. sap bi developer was able to place a PICC line in patient's left arm and this will be utilized for antibiotics. We will repeat blood cultures tomorrow. Continue Rocephin and vancomycin antibiotics for now pending further sensitivities. Echo ordered for tomorrow, which is the earliest we can obtain them, to rule out cardiac vegetation. Procalcitonin returned mildly elevated 0.15. WBC has returned to normal. CRP is slightly elevated but remained stable. Patient denies any IV drug use for past several years but does state that he smokes methamphetamine occasionally. Buprenorphine was also positive. We discussed significant risks of both. Legs look fairly stable today. Erythema is improving. Obvious concern would be discharging known drug addict with PICC line and this will likely affect patient's length of stay. Functional Status: Reports: Pain Controlled, Tolerating Diet, Ambulating, Urinating - Review of Systems General: Reports: No Symptoms HEENT: Reports: No Symptoms Pulmonary: Reports: No Symptoms Cardiovascular: Reports: No Symptoms Gastrointestinal: Reports: No Symptoms Genitourinary: Reports: No Symptoms Musculoskeletal: Reports: No Symptoms Skin: Reports: Other (Cellulitis to bilateral lower extremities) Neurological: Reports: No Symptoms Psychiatric: Reports: No Symptoms - Patient Data Vitals - Most Recent: Last Vital Signs Temp 97.9 F 08/24/20 12:18 Pulse 75 08/24/20 12:18 Resp 20 08/24/20 12:18 BP 108/86 08/24/20 12:18 Pulse Ox 100 08/24/20 12:18 Weight - Most Recent: 254 lb 6.4 oz I&O - Last 24 hours: Intake & Output 08/23/20 08/24/20 08/24/20 22:59 06:59 14:59 Intake Total 2020 900 360 Output Total 1900 300 Balance 120 600 360 Lab Results - Last 24 hrs: Laboratory Results - last 24 hr 08/24/20 08/24/20 08/24/20 Range/Units 05:40 05:40 05:40 WBC 5.46 (4.23-9.07) K/mm3 RBC 4.71 (4.63-6.08) M/mm3 Hgb 13.6 L (13.7-17.5) gm/dl Hct 41.4 (40.1-51.0) % MCV 87.9 (79.0-92.2) fl MCH 28.9 (25.7-32.2) pg MCHC 32.9 (32.2-35.5) g/dl RDW Std Deviation 41.2 (35.1-43.9) fL Plt Count 246 (163-337) K/mm3 MPV 9.1 L (9.4-12.3) fl Neut % (Auto) 45.0 (34.0-67.9) % Lymph % (Auto) 36.3 (21.8-53.1) % [place] % (Auto) 14.5 H (5.3-12.2) % Eos % (Auto) 3.3 (0.8-7.0) Baso % (Auto) 0.7 (0.1-1.2) % Neut # (Auto) 2.46 (1.78-5.38) K/mm3 Lymph # (Auto) 1.98 (1.32-3.57) K/mm3 [place] # (Auto) 0.79 (0.30-0.82) K/mm3 Eos # (Auto) 0.18 (0.04-0.54) K/mm3 Baso # (Auto) 0.04 (0.01-0.08) K/mm3 Manual Slide Review Normal smear Sodium 139 (136-145) mEq/L Potassium 4.2 (3.5-5.1) mEq/L Chloride 105 (98-107) mEq/L Carbon Dioxide 28 (21-32) mEq/L Anion Gap 10.2 (5-15) BUN 10 (7-18) mg/dL Creatinine 1.0 (0.7-1.3) mg/dL Est Cr Clr Drug Dosing 103.20 mL/min Estimated GFR (MDRD) > 60 (>60) mL/min BUN/Creatinine Ratio 10.0 L (14-18) Glucose 94 (70-99) mg/dL Calcium 8.2 L (8.5-10.1) mg/dL Total Bilirubin 0.3 (0.2-1.0) mg/dL AST 63 H (15-37) U/L ALT 102 H (16-63) U/L Alkaline Phosphatase 54 (46-116) U/L C-Reactive Protein 2.3 H* (<1.0) mg/dL Total Protein 7.3 (6.4-8.2) g/dl Albumin 2.9 L (3.4-5.0) g/dl Globulin 4.4 gm/dL Albumin/Globulin Ratio 0.7 L (1-2) EL Results - Last 24 hrs: Microbiology 08/21/20 21:55 Aerobic Blood Culture - Final Blood Staphylococcus Epidermidis Anaerobic Blood Culture - Preliminary Staphylococcus Epidermidis 08/21/20 22:06 Aerobic Blood Culture - Preliminary Blood NO GROWTH AFTER 2 DAYS Anaerobic Blood Culture - Final Med Orders - Current: Current Medications Acetaminophen (Acetaminophen 650 Mg Supp) 650 mg RECTAL Q6H PRN PRN Reason: Pain (mild 1-3) Albuterol/Ipratropium (Albuterol/Ipratropium 3.0-0.5 Mg/3 Ml Neb Soln) 3 ml NEB Q4H PRN PRN Reason: Shortness Of Breath/wheezing Enoxaparin Sodium (Enoxaparin 40 Mg/0.4 Ml Syringe) 40 mg SUBCUT DAILY [facility] Last Admin: 08/24/20 09:31 Dose: 40 mg Documented by: Hydralazine HCl (Hydralazine 20 Mg/Ml Sdv) 10 mg IVPUSH Q4H PRN PRN Reason: Hypertension Promethazine HCl 12.5 mg/ (Sodium Chloride) 50.5 mls @ 100 mls/hr IV Q6H PRN PRN Reason: Nausea/Vomiting Ceftriaxone Sodium 2 gm/ (Sodium Chloride) 100 mls @ 200 mls/hr IV Q24H [facility] Last Admin: 08/24/20 05:12 Dose: 200 mls/hr Documented by: Vancomycin HCl 1.75 gm/ Sodium (Chloride) 500 mls @ 250 mls/hr IV Q12H [facility] Last Admin: 08/24/20 06:02 Dose: 250 mls/hr Documented by: Nicotine (Nicotine 14 Mg/24 Hr Patch) 14 mg TRDERM DAILY [facility] Last Admin: 08/24/20 09:30 Dose: 14 mg Documented by: Sodium Chloride (Sodium Chloride 0.9% 10 Ml Syringe) 10 ml FLUSH ASDIRECTED PRN PRN Reason: Keep Vein Open Last Admin: 08/22/20 01:29 Dose: 10 ml Documented by: Tramadol HCl (Tramadol 50 Mg Tab) 50 mg PO Q6H PRN PRN Reason: Pain (moderate 4-6) Vancomycin HCl (Pharmacy To Dose - Vancomycin) 1 dose .XX ASDIRECTED PRN PRN Reason: RX TO DOSE VANCO Discontinued Medications Vancomycin HCl 1.75 gm/ Sodium (Chloride) 500 mls @ 250 mls/hr IV ONETIME ONE Stop: 08/21/20 22:51 Last Admin: 08/22/20 01:10 Dose: 250 mls/hr Documented by: Piperacillin Sod/Tazobactam (Sod 4.5 gm/ Sodium Chloride) 100 mls @ 200 mls/hr IV ONETIME ONE Stop: 08/22/20 03:59 Last Admin: 08/22/20 03:24 Dose: 200 mls/hr Documented by: Sodium Chloride (Normal Saline) 1,000 mls @ 80 mls/hr IV ASDIRECTED ANN MARIE Vancomycin HCl 1 gm/ Sodium (Chloride) 250 mls @ 250 mls/hr IV Q12H [facility] Last Admin: 08/22/20 09:31 Dose: Not Given Documented by: Ceftriaxone Sodium 1 gm/ (Sodium Chloride) 100 mls @ 200 mls/hr IV Q24H [facility] Last Admin: 08/22/20 07:07 Dose: 200 mls/hr Documented by: Vancomycin HCl 1.75 gm/ Sodium (Chloride) 500 mls @ 250 mls/hr IV Q12H [facility] Last Admin: 08/22/20 17:38 Dose: 250 mls/hr Documented by: Lidocaine HCl (Xylocaine-Mpf 1%) Confirm Administered Dose 4 mls @ as directed .ROUTE .STK-MED ONE Stop: 08/22/20 12:52 Ceftriaxone Sodium 2 gm/ (Sodium Chloride) 100 mls @ 200 mls/hr IV Q24H [facility] Last Admin: 08/22/20 17:47 Dose: Not Given Documented by: Ceftriaxone Sodium 2 gm/ (Sodium Chloride) 100 mls @ 200 mls/hr IV Q24H [facility] Last Admin: 08/23/20 07:07 Dose: 200 mls/hr Documented by: Vancomycin HCl 1.75 gm/ Sodium (Chloride) 500 mls @ 250 mls/hr IV Q12H [facility] Last Admin: 08/23/20 17:25 Dose: 250 mls/hr Documented by: Ceftriaxone Sodium 2 gm/ (Sodium Chloride) 100 mls @ 200 mls/hr IV Q24H [facility] Morphine Sulfate (Morphine 2 Mg/Ml Syringe) 2 mg IVPUSH Q4H PRN PRN Reason: Pain (severe 7-10) Stop: 08/23/20 06:36 - Exam Quality Assessment: Reports: DVT Prophylaxis General: Reports: Alert, Oriented, Cooperative HEENT: Reports: Pupils Equal, Mucous Membr. Moist/[place] Neck: Reports: Supple, Trachea Midline Lungs: Reports: Clear to Auscultation, Normal Respiratory Effort Cardiovascular: Reports: Regular Rate, Regular Rhythm, No Murmurs GI/Abdominal Exam: Normal Bowel Sounds, Soft, Non-Tender, No Distention (Male) Exam: Deferred Rectal (Males) Exam: Deferred Back Exam: Reports: Normal Inspection, Full Range of Motion Extremities: Normal Range of Motion, Normal Capillary Refill, Redness (Bilateral lower extremities). No: Normal Inspection (Cellulitis noted to bilateral lower extremities), Non-Tender (Tenderness noted to bilateral lower extremities), Pedal Edema Skin: Reports: Warm, Dry, Intact Neurological: Reports: No New Focal Deficit Psy/Mental Status: Reports: Alert, Normal Affect, Normal Mood
== END 2020-08-24 15:43 | DRG 603 ==
LOC: JD.ED 21:06 → SUPCPDRO 21:06 → JD.MS 08-22 01:29
PROVIDERS: ADMIT Internal Medicine; ATTEND Internal Medicine
PROC: 02HV33Z Insertion of Infusion Device into Superior Vena Cava, Percutaneous Approach (ICD-10-PCS; principal; 2020-08-22)
DX: L03.115 Cellulitis of right lower limb (principal); R78.81 Bacteremia; F15.20 Other stimulant dependence, uncomplicated; I87.2 Venous insufficiency (chronic) (peripheral); Z78.9 Other specified health status; R76.8 Other specified abnormal immunological findings in serum; F11.11 Opioid abuse, in remission; F17.200 Nicotine dependence, unspecified, uncomplicated; E66.9 Obesity, unspecified; Z68.30 Body mass index [BMI] 30.0-30.9, adult; I10 Essential (primary) hypertension; B18.2 Chronic viral hepatitis C; J44.9 Chronic obstructive pulmonary disease, unspecified; K21.9 Gastro-esophageal reflux disease without esophagitis; F41.9 Anxiety disorder, unspecified; Z20.822 Contact with and (suspected) exposure to COVID-19; L03.116 Cellulitis of left lower limb
CPT/HCPCS: 36410; 36415; 36569; 80053; 80306; 83036; 83605; 83735; 84145; 85025; 86140; 87040; 87077; 87186; 87641; 93306; 93970; 93970-26; 96365; 99221; 99233; 99239; 99284; 99284-25; A9270-GY; C1751; J0696; J1650; J2543; J3370; J7040; U0002